=== PATIENT | male | born 1995 | race Caucasian/White ===

== ENCOUNTER 2020-12-04 06:43 | Observation (INO) | payer SELFPAY ==
[2020-12-04 06:55] VITALS: BP 157/92; PULSE 77; RESP 20; TEMP 36.8; O2SAT 97
--- NOTE | 2020-12-04 07:00 | RT.EKG_ITS ---
APPROVED REPORT Exam: Resting ECG Patient Location: E HR:70 bpm ECG Measurements Heart Rate 70 AXIS [place] 113 P 81 QRSd 92 QRS 62 QT 404 T 13 QTc 438 Conclusion Sinus arrhythmia...V-rate 58- 85, variation>10% ST elev, probable normal early repol pattern...ST elevation, age<55 Physician: Rate 70, intervals normal, nonspecific ST elevation, repolarization variant. No evidence of STEMI. No QT prolongation.
--- NOTE | 2020-12-04 07:16 | ED.GENADUL_ITS ---
Discharge Plan Disposition Patient Disposition: [facility] INPATIENT Condition: Improving Discharge Details Chief Complaint: Nausea/Vomit/Diar Clinical Impression: Cannabinoid hyperemesis syndrome Admit Date/Time: 12/04/20 13:06 Admit Provider: Sarthak Herr Attending Provider: Zachary Maya Primary Care Provider: Unknown,Unknown ED Provider: Aba Phelps Discharge Data Discharge Date/Time-TO BE ENTERED AT DEPARTURE: 12/04/20 11:15 Medical Decision Making 25-year-old male with past medical history of cyclic vomiting syndrome presents for the evaluation of vomiting. 5 days ago the patient went to [facility] emergency department for symptoms of vomiting mild abdominal pain. He was diagnosed with cyclic vomiting syndrome after a relatively unremarkable CAT scan and work-up. Is discharged home. He then came back the next day with continued symptoms. He was admitted until about 12 hours ago at which point he came here to [facility] to some family members house that had a particularly hot idania wer if this was a notable relieving factor for him. Unfortunately his symptomatology persisted, and the patient has been unable to stop vomiting. He denies any significant hematemesis, he does admit to occasional loose stool. He denies any fever or chills. Aside for the cramping and nausea he denies any continued severe abdominal pain. He has not smoked marijuana since his previous ED visit in [place] 5 days ago. He does state he has been trying to take oral potassium but this is notably upset his stomach. He denies any chest pain, vision changes, numbness or tingling. He does admit to mild weakness. He does have any fever or chills. No other complaints at this time. No prior abdominal surgeries. The patient also had capscacin during his admission, but states that this only helped minimally. Exam demonstrates mild epigastric tenderness, dry mucous membranes. No other significant abnormalities and definitely no evidence of an acute surgical abdomen. At this time symptoms appear consistent with mild to moderate cyclic vomiting syndrome. The patient has had Zofran at home but this does not help his symptoms. We are pending notes from the [facility] for review. At this time I see no emergent indication for repeat CAT scan. As he has had a notable amount of Zofran I do not think that this is the next best option. We will attempt abortive mechanism with IM sumatriptan hand, in conjunction with Haldol and Benadryl. We will rehydrate, monitor closely and reassess. Patient was signed out to my colleague Dr. Alejo Reynolds for laboratory follow-up, and caitlin ssessment. EKG 7: 04 Rate 70, intervals normal, nonspecific ST elevation, repolarization variant. No evidence of STEMI. No QT prolongation. HPI General Date/Time Provider Initiated Documentation: 12/04/20 06:45 . HPI Narrative: 25-year-old male with past medical history of cyclic vomiting syndrome presents for the evaluation of vomiting. 5 days ago the patient went to [place] emergency department for symptoms of vomiting mild abdominal pain. He was diagnosed with cyclic vomiting syndrome after a relatively unremarkable CAT scan and work-up. Is discharged home. He then came back the next day with continued symptoms. He was admitted until about 12 hours ago at which point he came here to [facility] to some family members house that had a particularly hot shower if this was a notable relieving factor for him. Unfortunately his symptomatology persisted, and the patient has been unable to stop vomiting. He denies any significant hematemesis, he does admit to occasional loose stool. He denies any fever or chills. Aside for the cramping and nausea he denies any continued severe abdominal pain. He has not smoked marijuana since his previous ED visit in [place] 5 days ago. He does state he has been trying to take oral potassium but this is notably upset his stomach. He denies any chest pain, vision changes, numbness or tingling. He does admit to mild weakness. He does have any fever or chills. No other complaints at this time. No prior abdominal surgeries. Related Data Home Medications Medication Instructions Recorded Confirmed ondansetron [Zofran ODT] 4 mg PO Q6H PRN PRN 12/04/20 12/04/20 Allergies Allergy/AdvReac Type Severity Reaction Status Date / Time amoxicillin Allergy Unverified 12/04/20 07:08 Penicillins Allergy Unverified 12/04/20 07:08 General Stated Complaint: Nausea/Vomit/Diar RENEE: 3 Review of Systems All systems reviewed & are unremarkable except as noted in HPI and below [facility] Medical History (Updated 12/04/20 @ 23:58 by Aba Phelps DO) Alcohol use Marijuana dependence Social History Smoking/Tobacco Use Status: Former Tobacco Use Smoking risk assessment performed?: Yes Alcohol Intake: current Alcohol Intake frequency: a few times a week Drug use: Daily Substance use type: marijuana Do you feel safe at home: Yes Do you feel safe in your relationship?: Yes Exam Narrative Exam Narrative: 1.Const: Well-nourished, Well-developed, appearing stated age 2.Eyes: PERRL, no conjunctival injection, and symmetrical lids. 3.ENT: Atraumatic external nose and ears. Notably dry MM. Neck: Symmetric, trachea midline, No thyromegaly. 4.CVS: +S1/S2, No murmurs or gallops. Peripheral pulses 2+ and equal in all extremities. Brisk capillary refill in all extremities. 5.RESP: Unlabored respiratory effort. Clear to auscultation bilaterally. No wheezes rales or rhonchi 6.GI: Soft, nondistended, no guarding or rebound. Mild epigastric tenderness. No pain at McBurney's point, negative Ward sign 7.MSK: Normocephalic/Atraumatic, Extremities w/o deformity or ttp No cyanosis or clubbing, Normal movement of all extremities 8.Skin: Warm, Dry. No rashes or lesions. 9.Neuro: developmental therapist II-XII grossly intact. Sensation grossly intact, no focal neurologic deficits. 10.Psych: (AAO) x3. Appropriate mood and affect Course Vital Signs Vital signs: Vital Signs Temperature 36.8 C 12/04/20 06:55 Pulse 77 12/04/20 06:55 Respiratory Rate 20 12/04/20 06:55 Blood Pressure 157/92 H 12/04/20 06:55 Pulse Oximetry 97 12/04/20 06:55 Temperature 36.8 C 12/04/20 06:55 Temperature Source Skin 12/04/20 06:55 Pulse 77 12/04/20 06:55 Respiratory Rate 20 12/04/20 06:55 Respiratory Effort Non-Labored 12/04/20 07:04 Blood Pressure 157/92 H 12/04/20 06:55 Blood Pressure Position Supine 12/04/20 06:55 Pulse Oximetry 97 12/04/20 06:55 Oxygen Delivery Method Room Air 12/04/20 06:55 Oxygen Flow Rate 0 12/04/20 06:55 Pain Level 5 12/04/20 06:55
[2020-12-04 07:17] LABS: Abs Immature Grans 0.06 10^3/uL (0.0-0.06); Absolute Basophil Count 0.05 10^3/uL (0.0-0.2); Absolute Monocyte Count 1.79 10^3/uL (0.1-0.8); Basophils % 0.3; Eosinophils % 0.2; HCT 51.8 % (40.0-50.0); HGB 17.9 g/dL (13.5-17.5); Immature Grans % 0.3; MCH 30.3 pg (27.0-33.0); MCHC 34.6 % (32.0-36.0); MCV 87.6 fL (80-95); MPV 8.6 fL (8.0-11.0); Neutrophils % 71.2; Nucleated RBC 0 %; Platelet Count 375 10^3/uL (130-400); RBC 5.91 10^6/uL (4.36-5.78); RDW 12.4 % (11.8-14.1); RDW-SD 40.3 fL; WBC 17.85 10^3/uL (4.4-10.8)
[2020-12-04] MEDS: Haloperidol 5 MG/ML VIAL 2 MG IV (07:25)
[2020-12-04] MEDS: Lactated Ringers 1,000 ML 1000 ML IV (07:26)
[2020-12-04] MEDS: SUMAtriptan 6 MG/0.5 ML VIAL SC (07:26)
[2020-12-04] MEDS: diphenhydrAMINE 50 MG/ML VIAL 25 MG IVP (07:26)
[2020-12-04 07:29] LABS: ALT 19 U/L (16-63); AST 8 U/L (15-37); Albumin 4.3 g/dL (3.4-5.0); Alkaline Phosphatase 89 U/L (46-116); Anion Gap 9.7 mmol/L (3-11); BUN 20 mg/dL (7-18); Bilirubin, Total 1.1 mg/dL (0.2-1.0); CO2 27.3 mmol/L (21.0-32.0); CREATININE 1.1 mg/dL (0.70-1.30); Calcium 9.4 mg/dL (8.5-10.1); Chloride 99 mmol/L (98-107); Glucose 142 mg/dL (74-106); Lipase 88 U/L (73-393); Magnesium 2.4 mg/dL (1.8-2.4); Potassium 3.3 mmol/L (3.5-5.1); Sodium 136 mmol/L (136-145); Total Protein 8.1 g/dL (6.4-8.2)
--- NOTE | 2020-12-04 07:35 | DI.CT_ITS ---
EXAM: CT HEAD WO CLINICAL HISTORY: continued vomiting, r/o mass. TECHNIQUE: Imaging Protocol: Axial computed tomography images with coronal and sagittal reformatted images were created and reviewed COMPARISON: No exams were available for comparison FINDINGS: Ventricles and Extra axial spaces: Normal in size and morphology for the patient's age. Hemorrhage: None. Cerebral parenchyma: Normal. Midline shift: None. Brainstem/Cerebellum: Normal. Calvarium: Normal. Visualized Paranasal sinuses/Mastoids: There is a mucous retention cyst or polyp in the left maxillar y sinus. The visualized paranasal sinuses and mastoid air cells are otherwise clear. Soft Tissues: Unremarkable. IMPRESSION: No acute intracranial process. Results of this exam have been verbally communicated with provider. RADIATION DOSE DELIVERED: 664.58mGy.cm Total DLP DATA REPOSITORY: All CT scans at this facility are submitted to the National Radiology Data Registry (NRDR) Dose Index Registry (DIR) with the [employer] (ACR). RADIATION OPTIMIZATION: All CT scans at this facility use at least one of these dose optimization te chniques: automated exposure control; mA and/or kV adjustment per patient size (includes targeted exa ms where dose is matched to clinical indication); or iterative reconstruction.
[2020-12-04] MEDS: POTASSIUM CHLORIDE 20 MEQ/100 ML BAG 50 MEQ IVPB (07:45)
[2020-12-04 08:44] LABS: COVID-19 PCR Negative (Negative); Influenza A PCR Negative (Negative); Influenza B PCR Negative (Negative); RSV PCR Negative (Negative)
[2020-12-04 12:15] LABS: Absolute Eosinophil Count 0.04 10^3/uL (0.0-0.7); Absolute Lymphocyte Count 3.21 10^3/uL (1.2-3.4); Absolute Neutrophil Count 12.71 10^3/uL (1.2-6.7); Diff Comment Diff Reviewed; RBC Morphology Normal
[2020-12-04 13:57] VITALS: BP 135/83; PULSE 66; RESP 20; TEMP 37.3; O2SAT 95
--- NOTE | 2020-12-04 14:45 | W.PM.HP.N ---
Date of service: 12/04/20 Time of Service: 14:45 Assessment and Plan Assessment and plan (1) Marijuana dependence: Status: Acute Assessment and plan: He says his last marijuana use was a week ago. He still has persistent nausea and vomiting. Work-up including a CT scan of the abdomen and pelvis was negative he had a CT scan of the head today it also was negative. Covid screening was negative. He does not have anything more serious that is apparent that is the cause of his persistent nausea and vomiting. Will continue IV fluids and limited p.o. intake and admit for observation overnight. (2) Leukocytosis: Status: Acute Assessment and plan: His white count is mildly elevated. He does not have stigmata of infection in his lungs or abdomen. This does not appear to be an occult infection. Hold on antibiotics for now. (3) Alcohol use: Status: Acute Assessment and plan: He has a history of moderate weekly alcohol use, 3-4 times per week. His last use was over a week ago. I do not think he is in danger of going through withdrawal. (4) Hypokalemia: Status: Acute Assessment and plan: Potassium somewhat low at 3.3. He got potassium replacement in the ER. We will keep him on IV fluids with 20 mEq/L of potassium. Recheck labs again in the a.m. (5) Discharge planning issues: Status: Acute Assessment and plan: Admit to observation status. He is a full code. History of Present Illness History of Present Illness Chief Complaint: Hyperemesis/marijuana abstinence syndrome Narrative: This is a 25-year-old that presented to the emergency room today because of uncontrollable nausea and vomiting. He was discharged from [facility] on 12/02/2020 for admission regarding similar symptoms. At that time he had a CT abdomen and pelvis that was negative. His white count was elevated 18,000 but upon repeat came back to normal. He received antiemetic therapy and IV fluids. He went to his girlfriends grandmother's house today because she has a hot shower which seems to help. Apparently the hot shower did not really help and so he self-referred to the emergency room. In the emergency room white count was elevated at 17.85 thousand potassium low at 3.3. He received IV fluids and potassium replacement but continued to have nausea. He was treated with IV Haldol and IV sumatriptan and which controlled his nausea but he is admitted for observation and further monitoring with IV hydration. Review of Systems Narrative: He states he still has some nausea but has not vomited since coming to the hospital. He denies any significant abdominal pain. He is not having chest pain or shortness of breath. [facility] Medical History (Updated 12/04/20 @ 14:54 by Zachary Maya MD) Alcohol use Marijuana dependence Social History Smoking/Tobacco Use Status: Former Tobacco Use Smoking risk assessment performed?: Yes Alcohol Intake: current Alcohol Intake frequency: a few times a week Drug use: Daily Substance use type: marijuana Do you feel safe at home: Yes Do you feel safe in your relationship?: Yes Meds Home Medications and Allergies Allergies Allergy/AdvReac Type Severity Reaction Status Date / Time amoxicillin Allergy Unverified 12/04/20 07:08 Penicillins Allergy Unverified 12/04/20 07:08 Home Medications Medication Instructions Recorded Confirmed Type ondansetron [Zofran ODT] 4 mg PO Q6H PRN PRN 12/04/20 12/04/20 History Exam Narrative Exam Narrative: On exam skin is notable for faded tattoos on all of his fingers wrists arms shoulders and lower extremities. He did not appear in any distress. His breathing was not at all labored. Lungs were clear to auscultation on the right and left. Heart sounds were regular and strong. No murmur was appreciated. Abdomen was flat soft and no tenderness elicited on palpation to all 4 quadrants. The lower extremity showed no evidence of edema and otherwise appeared well perfused. Neurologically there were no significant deficits. He was somewhat sleepy and somewhat indifferent to the overall exam process. Results Labs Result diagrams: 12/04/20 07:00 12/04/20 07:00 Labs: Laboratory Results - last 24 hr 12/04/20 12/04/20 12/04/20 07:00 07:00 07:40 WBC 17.85 H RBC 5.91 H Hgb 17.9 H Hct 51.8 H MCV 87.6 MCH 30.3 MCHC 34.6 RDW 12.4 Plt Count 375 MPV 8.6 Immature Gran % 0.3 Neutrophils % 71.2 Lymphocytes % 18.0 Monocytes % 10.0 Eosinophils % 0.2 Basophils % 0.3 Nucleated RBC % 0 Absolute Neutrophils 12.71 H Absolute Lymphocytes 3.21 Absolute Monocytes 1.79 H Absolute Eosinophils 0.04 Absolute Basophils 0.05 RBC Morphology Normal Sodium 136 Potassium 3.3 L Chloride 99 Carbon Dioxide 27.3 Anion Gap 9.7 BUN 20 H Creatinine 1.1 Estimated GFR/1.73 m2 >= 60.00 Glucose 142 H Calcium 9.4 Magnesium 2.4 Total Bilirubin 1.1 H AST 8 L ALT 19 Alkaline Phosphatase 89 Total Protein 8.1 Albumin 4.3 Lipase 88 COVID-19 Source Nasopharyx SARS-CoV-2 (PCR) Negative Influenza Type A (PCR) Negative Influenza Type B (PCR) Negative RSV (PCR) Negative Last Vital Signs Temp 37.3 C 12/04/20 13:57 Pulse 66 12/04/20 13:57 Resp 20 12/04/20 13:57 BP 135/83 12/04/20 13:57 Pulse Ox 95 12/04/20 13:57 COVID-19 Screening Have you, or household traveled for leisure in last 14 days?: Yes Had IN PERSON contact w/suspected or confirmed C-19 person: No
[2020-12-04] MEDS: POTASSIUM CHLORIDE/0.9% NACL 1,000 ML 125 MEQ IV (15:12)
[2020-12-04 15:18] VITALS: BP 165/87; PULSE 68; RESP 21; TEMP 37.3; O2SAT 100
[2020-12-04 15:31] VITALS: BP 165/87; PULSE 68; RESP 21; TEMP 37.3; O2SAT 100
[2020-12-04 23:47] VITALS: BP 135/82; PULSE 79; RESP 18; TEMP 37.2; O2SAT 97
[2020-12-05] MEDS: POTASSIUM CHLORIDE/0.9% NACL 1,000 ML 125 MEQ IV (06:12)
[2020-12-05 07:03] LABS: Abs Immature Grans 0.06 10^3/uL (0.0-0.06); Absolute Basophil Count 0.05 10^3/uL (0.0-0.2); Absolute Lymphocyte Count 3.64 10^3/uL (1.2-3.4); Absolute Monocyte Count 1.38 10^3/uL (0.1-0.8); Basophils % 0.3; Eosinophils % 0.4; HCT 46.4 % (40.0-50.0); Immature Grans % 0.4; Lymphocytes % 22.5; MCH 30.4 pg (27.0-33.0); MCHC 34.5 % (32.0-36.0); MCV 88.2 fL (80-95); MPV 8.9 fL (8.0-11.0); Monocytes % 8.5; Neutrophils % 67.9; Nucleated RBC 0 %; Platelet Count 277 10^3/uL (130-400); RBC 5.26 10^6/uL (4.36-5.78); RDW 12.5 % (11.8-14.1); RDW-SD 40.6 fL; WBC 16.18 10^3/uL (4.4-10.8)
[2020-12-05 07:11] LABS: Absolute Eosinophil Count 0.06 10^3/uL (0.0-0.7); Absolute Neutrophil Count 10.99 10^3/uL (1.2-6.7)
[2020-12-05 07:18] LABS: Anion Gap 10.7 mmol/L (3-11); BUN 11 mg/dL (7-18); CO2 25.3 mmol/L (21.0-32.0); CREATININE 0.8 mg/dL (0.70-1.30); Calcium 8.5 mg/dL (8.5-10.1); Chloride 101 mmol/L (98-107); Glucose 100 mg/dL (74-106); Sodium 137 mmol/L (136-145)
[2020-12-05 07:55] VITALS: BP 159/89; PULSE 60; RESP 20; TEMP 36.9; O2SAT 98
[2020-12-05] MEDS: Mylanta Suspension 30 ML CUP PO (09:36)
--- NOTE | 2020-12-05 10:09 | PDOC.CMIN ---
- If Service Date Differs Date of service: 12/05/20 Time of Service: 10:10 Care Management Initial Assess REASON FOR HOSPITALIZATION:: Hyperemesis PAST MEDICAL HISTORY/PAST SURGICAL HISTORY:: Alcohol use, marijuana dependence PREVIOUS FUNCTIONAL STATUS/SOCIAL/FAMILY SUPPORTS:: Alcohol use. Marijuana dependence CURRENT FUNCTIONAL STATUS:: Adán is preparing for discharge. He shares no concerns at this time. INSURANCE COVERAGE / FINANCIAL ISSUES:: No insurance currently, resident of [place]. CURRENT HOME/COMMUNITY SERVICES/EQUIPMENT:: None, currently. PRIMARY CARE PHYSICIAN:: None local. PATIENT/FAMILY EDUCATION NEEDS:: Review discharge instructions, discuss Ask Me [employer]. ANTICIPATED BARRIERS TO DISCHARGE:: None identified at this time. TRANSPORTATION:: Via private vehicle with his significant other. PLAN:: Adán will discharge to home when ready per MD. He will transport via private vehicle with his significant other.
--- NOTE | 2020-12-05 10:31 | DSE_ITS ---
Date of service: 12/05/20 Time of Service: 10:31 DS: Diagnosis Discharge Diagnosis (1) Marijuana dependence: Status: Acute (2) Leukocytosis: Status: Acute (3) Alcohol use: Status: Acute (4) Hypokalemia: Status: Acute Discharge Plan Disposition Patient Disposition: HOME Condition: Improving Discharge Details Reason For Visit: HYPEREMESIS Admit Date/Time: 12/04/20 13:06 Admit Provider: Sarthak Herr Attending Provider: Zachary Maya Primary Care Provider: None,None Hospital Course Hospital Course: THis is a 25-year-old male with past medical history of cyclic vomiting syndrome presents to the ED for the evaluation of vomiting. 5 days ago he was evaluated at the [place] emergency department for symptoms of vomiting mild abdominal pain. He was diagnosed with cyclic vomiting syndrome after a relatively unremarkable CAT scan and work-up. His labs repeated and he received IV antiemetics and fluids with improvement in his symptoms. He has had improvement with hot showers. he is now tolerating PO fluids and has remained hemodynamically stable. He is safe and ready for discharge to home. He states he has antiemetics at home and does not need a new prescription. He was advised to avoid marijuana which he acknowledges is contributing to his symptoms. discharge discussed with Dr Herr Home Meds and New Rx's Prescriptions: Continued ondansetron 4 mg Tablet,Disintegrating 4 mg PO Q6H PRN PRNRF: 0 Discharge Instructions Instructions: Acute Nausea and Vomiting (DC) Additional Instructions: avoid marijuana clear liquids, advance as tolerated can use omeprazole 20 mg daily for 3 weeks add tums or maalox as directed for epigastric pain Stand Alone Forms: Nursing Discharge Form Referrals: Alexia Ball NP [NURSE PRACTITIONER] - 12/17/20 10:00 am Activity:: Activity as Tolerated Equipment/Supplies:: No Equipment Needed Diet:: As Tolerated Discharge Orders Discharge Orders: Discharge Order (Routine); Ordered 12/05/20 Ordered By: Brii Otero DS: Summary Time Spent with Patient providing and/or coordinating discharge services: Less than 30 minutes Status at Discharge Functional status at discharge: independent ambulation Overall status at discharge: patient is progressing back to baseline Mental Status: mental status grossly normal Speech and Movement: speech and movement normal Mood: congruent mood Affect: normal affect Exam Const General: cooperative, comfortable, no acute distress and frail appearing Nutritional Appearance: thin Orientation: alert, awake and oriented x3 HENMT Head: normal to inspection, normocephalic and atraumatic Resp Effort & Inspection: normal respiratory effort (even and unlabored) Cardio Jugular venous pressure: other Other: pink warm dry and well perfused GI Inspection: other (flat) Skin General skin exam: no rashes or lesions noted Neuro General: patient alert, patient awake, patient oriented x3 and moves all extremities Extrem General: normal to inspection and full ROM Psych Mental Status: mental status grossly normal Speech and Movement: speech and movement normal Mood: congruent mood Affect: normal affect Attitude: cooperative Thought Process: normal Thought Content: normal DS: Data Vitals/I&O Vitals and I&O: Vital Signs Temperature 36.9 C 12/05/20 07:55 Temperature Source Tympanic 12/05/20 07:55 Pulse 60 12/05/20 07:55 Pulse Rhythm Regular 12/05/20 09:32 Respiratory Rate 20 12/05/20 07:55 Respiratory Effort Non-Labored 12/05/20 09:32 Respiratory Depth Normal 12/05/20 09:32 Respiratory Pattern Normal 12/05/20 09:32 Blood Pressure 159/89 H 12/05/20 07:55 Blood Pressure Position Supine 12/04/20 06:55 Pulse Oximetry 98 12/05/20 07:55 Oxygen Delivery Method Room Air 12/05/20 07:55 Oxygen Flow Rate 0 12/05/20 07:55 Pain Level 0 12/05/20 07:55 Comment 12/04/20 15:18 Intake & Output 12/04/20 12/04/20 12/05/20 11:59 23:59 11:59 Intake Total 1170.5 / 1170.5 101.0 / 101.0 Output Total 600 / 600 1400 / 1400 Balance 570.5 / 570.5 -1299.0 / -1299.0 Weight 56.2 kg Intake: IV 1050.5 / 1050.5 101.0 / 101.0 Oral 120 / 120 Output: Urine 400 / 400 900 / 900 Emesis 200 / 200 500 / 500 Other: Urine Color Yellow Yellow Urine Appearance Clear Clear Urine Odor Normal Comment reports voiding in shower Stool Size Small Stool Characteristics Liquid Emesis Description Retching Retching Clear/Water Projectile Clear/Water Voiding Methods Toilet Urinal Data Completed and Pending Labs on day of discharge: Labs from last 24 hours 12/05/20 12/05/20 12/04/20 06:30 06:30 07:40 WBC 16.18 H RBC 5.26 Hgb 16.0 Hct 46.4 MCV 88.2 MCH 30.4 MCHC 34.5 RDW 12.5 Plt Count 277 MPV 8.9 Immature Gran % 0.4 Neutrophils % 67.9 Lymphocytes % 22.5 Monocytes % 8.5 Eosinophils % 0.4 Basophils % 0.3 Nucleated RBC % 0 Absolute Neutrophils 10.99 H Absolute Lymphocytes 3.64 H Absolute Monocytes 1.38 H Absolute Eosinophils 0.06 Absolute Basophils 0.05 RBC Morphology Sodium 137 Potassium 4.0 D Chloride 101 Carbon Dioxide 25.3 Anion Gap 10.7 BUN 11 D Creatinine 0.8 Estimated GFR/1.73 m2 >= 60.00 Glucose 100 Calcium 8.5 SARS-CoV-2 (PCR) Negative Influenza Type A (PCR) Negative Influenza Type B (PCR) Negative RSV (PCR) Negative 12/04/20 07:00 WBC 17.85 H RBC 5.91 H Hgb 17.9 H Hct 51.8 H MCV 87.6 MCH 30.3 MCHC 34.6 RDW 12.4 Plt Count 375 MPV 8.6 Immature Gran % 0.3 Neutrophils % 71.2 Lymphocytes % 18.0 Monocytes % 10.0 Eosinophils % 0.2 Basophils % 0.3 Nucleated RBC % 0 Absolute Neutrophils 12.71 H Absolute Lymphocytes 3.21 Absolute Monocytes 1.79 H Absolute Eosinophils 0.04 Absolute Basophils 0.05 RBC Morphology Normal Sodium Potassium Chloride Carbon Dioxide Anion Gap BUN Creatinine Estimated GFR/1.73 m2 Glucose Calcium SARS-CoV-2 (PCR) Influenza Type A (PCR) Influenza Type B (PCR) RSV (PCR) [facility] Medical History (Updated 12/04/20 @ 23:58 by Aba Phelps DO) Alcohol use Marijuana dependence Social History Smoking/Tobacco Use Status: Former Tobacco Use Smoking risk assessment performed?: Yes Alcohol Intake: current Alcohol Intake frequency: a few times a week Drug use: Daily Substance use type: marijuana Do you feel safe at home: Yes Do you feel safe in your relationship?: Yes
== END 2020-12-05 12:02 | disposition home or self-care (01) ==
LOC: ER 11:38 → MS 14:17
PROVIDERS: Admitting Provider Internal Medicine; Emergency Provider Student in an Organized Health Care Education/Training Program; Visit Provider Family Medicine
DX: R11.2 Nausea with vomiting, unspecified (principal); F12.20 Cannabis dependence, uncomplicated; D72.829 Elevated white blood cell count, unspecified; E87.6 Hypokalemia; Z72.89 Other problems related to lifestyle
CPT/HCPCS: 36415; 80048; 80053; 83690; 87637; 93005; 96361; 96365; 96366; 96372; 96375; 99217; 99219; 99285; 70450; 83735; 85025; 93010; G0378; J1200; J1630; J3480

== ENCOUNTER 2022-02-24 21:48 | Emergency (ER) | payer MEDICAID, SELFPAY ==
[2022-02-24 22:01] VITALS: BP 146/88; PULSE 88; RESP 20; TEMP 36.6; O2SAT 98
--- NOTE | 2022-02-24 22:21 | ED.GENADUL_ITS ---
Discharge Plan Disposition Patient Disposition: OTHER Condition: Stable Discharge Details Chief Complaint: Nausea/Vomit/Diar Clinical Impression: Nausea Primary Care Provider: None,None ED Provider: Mark Avelar Home Meds and New Rx's Prescriptions: No Action ondansetron 4 mg Tablet,Disintegrating 4 mg PO Q6H PRN PRN Discharge Instructions Additional Instructions: Patient eloped Medical Decision Making 26-year-old male history of cannabinoid hyperemesis, alcohol use, endorses prior alcohol poisoning, presents with nausea and vomiting since Thursday, believes he drank too much over the weekend, patient is hemodynamically stable no active vomiting, abdomen soft nontender nondistended has moist mucous membranes, no tachycardia no hypotension no fever, patient has no abdominal surgical history. Patient asking multiple times when he has been to get a bed also asking staff that he can take a shower, endorse multiple times that if he has to wait he is going to leave. I counseled patient that we are here to help him are working as best we can to provide appropriate space for his treatment. Consider recurrent hemorrhoid hyperemesis versus hangover versus gastritis versus enteritis, unlikely appendicitis cholecystitis UTI malignant or obstructive process given history and physical, patient has no clinical signs of dehydration at this time. Have ordered basic labs, fluids, Zofran. 23: 02 patient eloped. HPI General Date/Time Provider Initiated Documentation: 02/24/22 21:54 . HPI Narrative: 26-year-old male presents with nausea and vomiting since Thursday endorses drinking over the weekend has only been able to keep ice and water down, denies diarrhea fevers chills chest pain or shortness of breath. Has a history of cannabinoid hyperemesis syndrome and alcohol use. Believes he may have alcohol poisoning as this is happened to him in the past after drinking heavily. Denies history of abdominal surgeries. Related Data Home Medications Medication Instructions Recorded Confirmed ondansetron 4 mg disintegrating 4 mg PO Q6H PRN PRN 12/04/20 12/04/20 tablet Allergies Allergy/AdvReac Type Severity Reaction Status Date / Time amoxicillin Allergy Unverified 02/24/22 22:02 Penicillins Allergy Unverified 02/24/22 22:02 General Stated Complaint: Nausea/Vomit/Diar RENEE: 3 Review of Systems Narrative: R nausea, vomiting of Systems Constitutional: negative Eyes: negative ENT: negative Cardiovascular: negative Respiratory: negative Gastrointestinal: nausea, vomiting Musculoskeletal: negative Skin: negative Neurologic: negative Psych: negative PFSH All Active Problems (Updated 02/24/22 @ 23:03 by Mark Avelar MD) Cannabinoid hyperemesis syndrome (Acute) Nausea (Acute) Hypokalemia (Acute) Discharge planning issues (Acute) Leukocytosis (Acute) Alcohol use (Acute) Marijuana dependence (Acute) Social History Smoking/Tobacco Use Status: Former Tobacco Use Smoking risk assessment performed?: Yes Alcohol Intake: current Alcohol Intake frequency: a few times a week Substance use type: does not use Details: Had about 12 to 15 12oz beers on Thursday night. Reports not currently using marijuana. Do you feel safe at home: Yes Do you feel safe in your relationship?: Yes Exam Narrative Exam Narrative: Physical Examination General: alert, awake, cooperative, resting comfortably, no acute distress HEENT: normocephalic, atraumatic; PERRL, EOM intact, conjunctiva normal; no nasal discharge; moist mucous membranes, oral and pharyngeal mucosa normal, tolerating secretions Neck: supple, trachea midline; full ROM Chest: normal to inspection Respiratory: normal respiratory effort, speaking in full sentences, clear to auscultation, no wheezing, rales or rhonchi Cardiac: regular rate, regular rhythm, S1S2 intact, no murmurs rubs or gallops GI: abdomen soft, non-tender, non-distended; no palpable mass or hepatosplenomegaly Skin: no lesions, rashes or trauma appreciated Neuro: AAOx3, normal speech, moving all extremities Psych: Appropriate mood and affect Course Vital Signs Vital signs: Vital Signs Temperature 36.6 C 02/24/22 22:01 Pulse 88 02/24/22 22:01 Respiratory Rate 20 02/24/22 22:01 Blood Pressure 146/88 H 02/24/22 22:01 Pulse Oximetry 98 02/24/22 22:01 Temperature 36.6 C 02/24/22 22:01 Temperature Source Skin 02/24/22 22:01 Pulse 88 02/24/22 22:01 Respiratory Rate 20 02/24/22 22:01 Respiratory Effort Non-Labored 02/24/22 22:03 Blood Pressure 146/88 H 02/24/22 22:01 Blood Pressure Position Sitting 02/24/22 22:01 Pulse Oximetry 98 02/24/22 22:01 Oxygen Delivery Method Room Air 02/24/22 22:01 Oxygen Flow Rate 0 02/24/22 22:01 Pain Level 5 02/24/22 22:01 PAWSS Have you Been Recently Intoxicated or Drunk Within the Last 30 days?: Yes Have you Ever Experienced Previous Episodes of Alcohol Withdrawal?: No Have you ever Experienced Withdrawal Seizures?: No Have you ever Experienced Delirium Tremens(DT)s?: No Have you ever undergone Alcohol Rehabilitation Treatment (i.e, inpt ot outpatient treatment programs)?: No Have you ever Experienced Blackouts?: No Have you ever Combined Alcohol with other Downers within the last 90 days?: No Have you ever Combined Alcohol with any other Substance of Abuse during the last 90 days?: No Positive Blood Alcohol level on Presentation? [PCS.BAL]: No Evidence of Increased Autonomic Activity (i.e. HR>120, tremor, sweating, agitation, nausea)?: No Result: 1
== END 2022-02-24 22:59 | disposition other institution (70) ==
PROVIDERS: Emergency Provider Emergency Medicine
DX: R11.2 Nausea with vomiting, unspecified (principal); Z53.29 Procedure and treatment not carried out because of patient's decision for other reasons
CPT/HCPCS: 80053; 99281; 85025

== ENCOUNTER 2022-02-25 08:39 | Emergency (ER) | payer MEDICAID, SELFPAY ==
[2022-02-25 08:43] VITALS: BP 159/88; PULSE 104; RESP 16; TEMP 36.7; O2SAT 96
--- NOTE | 2022-02-25 09:12 | W.ED.GENAD ---
Discharge Plan Disposition Patient Disposition: HOME Condition: Improving Discharge Details Clinical Impression: Acute dehydration Primary Care Provider: None,None ED Provider: Mario Newell Home Meds and New Rx's Prescriptions: No Action No Known Home Meds Medical Decision Making 26-year-old male presents from home with nausea, vomiting, dehydration since going camping in which He arrives to the ER slightly tachycardic and dehydrated in appearance. Differential diagnosis includes pancreatitis, dehydration, acute gastritis. He drank a 12 pack and had little to no water. He is not had syncope. No chest pain. Patient IV access established, given parenteral fluids and antiemetic as well as PPI. His labs reveal elevated white count of 21, with a hematocrit greater than 50 He was dehydrated with a BUN of 30, his electrolytes are unremarkable. Troponin is negative. LFTs and lipase unremarkable. CBC was repeated and showed significant improvement with hematocrit of 44 likely near the patient's bed line. Patient improved with parenteral fluids and felt significantly better. Most consistent with his history of alcohol use with minimal water intake. He is young and healthy and do not feel he requires mandatory repeat labs but discussed this with him. We will arrange for him to establish primary care in the community. HPI General Mode of arrival: ambulatory. Date/Time Provider Initiated Documentation: 02/25/22 08:41. Limitations to Documentation: no limitations. Information obtained by: patient. History of Present Illness 26 year old M presents to the emergency department with the chief complaint of Nausea, vomiting, feels dehydrated after weekend of camping and drinking, described as moderate, Quality is described as constant, and is localized to the abdomen. Patient reports no radiation. Patient started experiencing this hour(s) and it has been intermittent. No relieving factors improve symptom(s), No exacerbating factors reported . Patient notes loss of appetite and nausea/vomiting; denies fever/chills, headaches, shortness of breath and syncope. Patient did receive the following treatments prior to arrival, none Related Data Home Medications Medication Instructions Recorded Confirmed Unknown [No Known Home Meds] 02/25/22 02/25/22 Allergies Allergy/AdvReac Type Severity Reaction Status Date / Time amoxicillin Allergy Unverified 02/25/22 09:13 Penicillins Allergy Unverified 02/25/22 09:13 General Stated Complaint: Nausea/Vomit/Diar RENEE: 3 Review of Systems Narrative: 6 systems reviewed and otherwise negative. No known sick contacts [facility] All Active Problems (Updated 02/25/22 @ 10:49 by Mario Newell MD) Cannabinoid hyperemesis syndrome (Acute) Nausea (Acute) Acute dehydration (Acute) Hypokalemia (Acute) Discharge planning issues (Acute) Leukocytosis (Acute) Alcohol use (Acute) Marijuana dependence (Acute) Social History Smoking/Tobacco Use Status: Former Tobacco Use Smoking risk assessment performed?: Yes Alcohol Intake: current Alcohol Intake frequency: 0-2 drinks per day Alcohol type: beer Substance use type: does not use Details: Had about 12 to 15 12oz beers on Thursday night. Reports not currently using marijuana. Do you feel safe at home: Yes Do you feel safe in your relationship?: Yes Exam Narrative Exam Narrative: GEN: awake, alert, oriented 3. Pleasant, well groomed, interactive. HEAD: Normocephalic, atraumatic ENT: Mucous membranes dry, oropharynx unremarkable, External ear exam unremarkable EYES: PERRL, EOMI NECK: Full ROM, no KAYLEE, no menigismus CHEST/RESP: Nontender, clear to auscultation bilateral, no wheeze/rhonchi/rales CARDIOVASCULAR: Regular and tachycardic, no murmur, rub naren. 2+ Rad pulse bilateral ABDOMEN: Soft, mild diffuse nonfocal tenderness without rebound or guarding no mass. +Bowel sounds EXT: Full ROM, no edema, no rash Neuro: Grossly normal neurologic exam, conversant, interactive. Psych: Speech fluent, thoughts congruent, affect normal Course Vital Signs Vital signs: Vital Signs Temperature 36.7 C 02/25/22 08:43 Pulse 104 H 02/25/22 08:43 Respiratory Rate 16 02/25/22 08:43 Blood Pressure 159/88 H 02/25/22 08:43 Pulse Oximetry 96 02/25/22 08:43 Temperature 36.7 C 02/25/22 08:43 Temperature Source Temporal Artery Scan 02/25/22 08:43 Pulse 104 H 02/25/22 08:43 Respiratory Rate 16 02/25/22 08:43 Blood Pressure 159/88 H 02/25/22 08:43 Blood Pressure Position Sitting 02/25/22 08:43 Pulse Oximetry 96 02/25/22 08:43 Oxygen Delivery Method Room Air 02/25/22 08:43 Oxygen Flow Rate 0 02/25/22 08:43 Pain Level 6 02/25/22 08:43
[2022-02-25] MEDS: Ondansetron 4 MG/2 ML VIAL IVP (09:23)
[2022-02-25] MEDS: Normal Saline 1,000 ML 1000 ML IV ×2 (09:23→10:24)
[2022-02-25] MEDS: Pantoprazole 40 MG VIAL IVP (09:23)
[2022-02-25] MEDS: Normal Saline Flush 10 ML SYR IVP (09:23)
[2022-02-25 09:29] LABS: HCT 55.1 % (40.0-50.0); MCH 31.2 pg (27.0-33.0); MCHC 34.7 % (32.0-36.0); MCV 90 fL (80-95); MPV 9.1 fL (8.0-11.0); Platelet Count 369 10^3/uL (130-400); RBC 6.13 10^6/uL (4.36-5.78); RDW-SD 42.9 fL; WBC 21.14 10^3/uL (4.4-10.8)
[2022-02-25 09:35] LABS: HGB 19.1 g/dL (13.5-17.5)
[2022-02-25 09:41] LABS: ALT 23 U/L (16-63); AST 16 U/L (15-37); Albumin 4.7 g/dL (3.4-5.0); Alkaline Phosphatase 92 U/L (46-116); Anion Gap 9.4 mmol/L (3-11); BUN 30 mg/dL (7-18); Bilirubin, Total 0.8 mg/dL (0.2-1.0); CO2 33.6 mmol/L (21.0-32.0); CREATININE 1.2 mg/dL (0.70-1.30); Calcium 9.8 mg/dL (8.5-10.1); Chloride 95 mmol/L (98-107); Glucose 135 mg/dL (74-106); Lipase 68 U/L (73-393); Sodium 138 mmol/L (136-145); Total Protein 8.8 g/dL (6.4-8.2); Troponin I < 50 ng/L (<or=60)
--- NOTE | 2022-02-25 10:52 | NUR.NOTE ---
Nursing Note: Referral given to Care Management needs PCP; establish care, routine follow up. Aimee Pacheco
[2022-02-25 11:32] LABS: HCT 44.3 % (40.0-50.0); HGB 14.9 g/dL (13.5-17.5); MCH 31.2 pg (27.0-33.0); MCHC 33.6 % (32.0-36.0); MCV 93 fL (80-95); Platelet Count 282 10^3/uL (130-400); RBC 4.77 10^6/uL (4.36-5.78); RDW 12.9 % (11.8-14.1); WBC 17.28 10^3/uL (4.4-10.8)
[2022-02-25 12:07] VITALS: BP 131/80; PULSE 86; RESP 16; TEMP 37.1; O2SAT 97
== END 2022-02-25 12:21 | disposition home or self-care (01) ==
PROVIDERS: Emergency Provider Emergency Medicine
DX: E86.0 Dehydration (principal); R11.2 Nausea with vomiting, unspecified
CPT/HCPCS: 36415; 80053; 83690; 85027; 96361; 96374; 96375; 99284; 84484; 99283; J2405

== ENCOUNTER 2022-02-26 14:25 | Emergency (ER) | payer MEDICAID, SELFPAY ==
[2022-02-26] VITALS (24 sets, daily range): BP systolic 123–171; BP diastolic 57–101; PULSE 59–66; RESP 16; TEMP 36.6; O2SAT 94–100
--- NOTE | 2022-02-26 14:42 | DI.CT_ITS ---
Exam(s) CT ABDOMEN PELVIS WO EXAM: CT ABDOMEN PELVIS WO CLINICAL HISTORY: Abd Pain TECHNIQUE: COMPARISON: No exams were available for comparison FINDINGS: CT examination of the abdomen and pelvis was performed without contrast administration. Images obtained through the lung bases show areas of airspace opacity in the left lower lobe, possibl e pneumonia.. The liver appears normal with no evidence of a focal mass. Spleen is unremarkable in appearance.. Gallbladder and bile ducts are unremarkable. Pancreas is unremarkable in appearance. Adrenals appear normal bilaterally. Kidneys appear normal with no evidence of renal mass, hydronephrosis, or nephrolithiasis. Unremarkab le bladder. There is no evidence of abdominal or pelvic adenopathy. Abdominal aorta is of normal diameter and no abnormality is seen involving major visceral branches.. Appendix is normal. No evidence diverticulitis or bowel obstruction. No significant abdominal wall hernia seen. Impression: The appearance of the visualized portions of the left lower pulmonary lobe raises the possibility of pneumonitis. No significant intra abdominal pathology seen. RADIATION DOSE DELIVERED: 497.67mGy.cm Total DLP 497.67mGy.cm Total DLP !Error CTDIvol DATA REPOSITORY: All CT scans at this facility are submitted to the National Radiology Data Registry (NRDR) Dose Index Registry (DIR) with the [employer] (A[employer]). RADIATION OPTIMIZATION: All CT scans at this facility use at least one of these dose optimization te chniques: automated exposure control; mA and/or kV adjustment per patient size (includes targeted exa ms where dose is matched to clinical indication); or iterative reconstruction.
[2022-02-26] MEDS: Normal Saline 1,000 ML 1000 ML IV (15:02)
[2022-02-26 15:06] LABS: Abs Immature Grans 0.05 10^3/uL (0.0-0.06); Absolute Basophil Count 0.03 10^3/uL (0.0-0.2); Absolute Lymphocyte Count 1.51 10^3/uL (1.2-3.4); Absolute Monocyte Count 0.56 10^3/uL (0.1-0.8); Absolute Neutrophil Count 9.06 10^3/uL (1.2-6.7); Basophils % 0.3; HGB 16.8 g/dL (13.5-17.5); Immature Grans % 0.4; Lymphocytes % 13.5; MCH 31.2 pg (27.0-33.0); MCHC 34.3 % (32.0-36.0); MCV 91 fL (80-95); MPV 8.8 fL (8.0-11.0); Neutrophils % 80.8; Platelet Count 269 10^3/uL (130-400); RBC 5.39 10^6/uL (4.36-5.78); RDW 12.2 % (11.8-14.1); RDW-SD 40.9 fL; WBC 11.21 10^3/uL (4.4-10.8)
--- NOTE | 2022-02-26 15:17 | ED.GENADUL_ITS ---
Discharge Plan Disposition Patient Disposition: HOME Condition: Improving Discharge Details Clinical Impression: Nausea & vomiting, Pneumonia Primary Care Provider: None,None ED Provider: Lino Bowden Home Meds and New Rx's Prescriptions: New azithromycin 250 mg tablet 250 mg PO DAILY 4 Days Qty: 4 0RF Rx Instructions: start on day 2 of therapy promethazine 25 mg tablet 25 mg PO TID PRN (Reason: nausea and vomiting) Qty: 10 0RF Discharge Instructions Instructions: Acute Nausea and Vomiting (ED), Pneumonia (ED) Additional Instructions: Please start your antibiotic tomorrow as your first dose was given in the emergency department. If you have any new or significant worsening of symptoms please return otherwise we will place you on a follow-up list with primary care provider for establishment of a new provider and for reassessment preferably next week. Stand Alone Forms: Work Release Referrals: Primary Care Provider [Outside] - 1 week Medical Decision Making <Zojoseph Snyder - Last Filed: 02/26/22 15:36> 26-year-old male presents to the ER with chief complaint of nausea vomiting abdominal pain since second visit please see HPI. CBC, CMP ordered urinalysis urine drug screen and ethyl alcohol. CT abdomen pelvis without contrast. CBC appears improved from yesterday's labs, BUN is 26 which is also improved from yesterday. Care is to be handed off to oncoming provider Dharmesh Bowden pending CT result. I did order Zofran tablets to go for patient. Medical Records Medical records reviewed: Yes I reviewed the patient's medical records. Lab Data Lab results reviewed: Yes I reviewed the patient's lab results. Labs: Laboratory Tests Range/Units 02/26/22 02/26/22 15:00 15:00 WBC (4.4-10.8) 10^3/uL 11.21 H RBC (4.36-5.78) 10^6/uL 5.39 Hgb (13.5-17.5) g/dL 16.8 Hct (40.0-50.0) % 49.0 MCV (80-95) fL 91 MCH (27.0-33.0) pg 31.2 MCHC (32.0-36.0) % 34.3 D RDW (11.8-14.1) % 12.2 Plt Count (130-400) 10^3/uL 269 MPV (8.0-11.0) fL 8.8 Immature Gran % 0.4 Neutrophils % 80.8 Lymphocytes % 13.5 Monocytes % 5.0 Eosinophils % 0.0 Basophils % 0.3 Nucleated RBC % (0.0-0.3) % 0.0 Absolute Neutrophils (1.2-6.7) 10^3/uL 9.06 H Absolute Lymphocytes (1.2-3.4) 10^3/uL 1.51 Absolute Monocytes (0.1-0.8) 10^3/uL 0.56 Absolute Eosinophils (0.0-0.7) 10^3/uL 0.00 Absolute Basophils (0.0-0.2) 10^3/uL 0.03 Sodium (136-145) mmol/L 138 Potassium (3.5-5.1) mmol/L 3.7 Chloride (98-107) mmol/L 101 Carbon Dioxide (21.0-32.0) mmol/L 28.2 Anion Gap (3-11) mmol/L 8.8 BUN (7-18) mg/dL 26 H Creatinine (0.70-1.30) mg/dL 1.0 Estimated GFR/1.73 m2 (mL/min/1.73m2) >= 60.00 Glucose (74-106) mg/dL 111 H Calcium (8.5-10.1) mg/dL 8.9 Magnesium (1.8-2.4) mg/dL 2.4 Total Bilirubin (0.2-1.0) mg/dL 0.9 AST (15-37) U/L 20 ALT (16-63) U/L 21 Alkaline Phosphatase (46-116) U/L 83 Total Protein (6.4-8.2) g/dL 7.9 Albumin (3.4-5.0) g/dL 4.3 HPI <Zo Snyder - Last Filed: 02/26/22 15:36> General Mode of arrival: ambulatory . Date/Time Provider Initiated Documentation: 02/26/22 14:27 . Limitations to Documentation: no limitations . Information obtained by: patient, RN notes reviewed and old records reviewed . HPI Narrative: 26-year-old male presents to the ER for the second day in a row with similar complaints of nausea vomiting dehydration and abdominal pain. 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 Patient denies any drug or alcohol use to me today. However upon medical record review it is noted that he does smoke marijuana and occasional alcohol use. He has moist mucous membranes upon initial presentation. Vital signs are stable. He is complaining of some lower abdominal pain. Past medical history includes cannabinoid hyperemesis syndrome, nausea, acute dehydration, hypokalemia, leukocytosis, alcohol use and marijuana dependence. Related Data Home Medications Medication Instructions Recorded Confirmed azithromycin 250 mg tablet 250 mg PO DAILY 4 days #4 tabs 02/26/22 promethazine 25 mg tablet 25 mg PO TID PRN nausea and 02/26/22 vomiting #10 tabs Previous Rx's Medication Instructions Recorded azithromycin 250 mg tablet 250 mg PO DAILY 4 days #4 tabs 02/26/22 promethazine 25 mg tablet 25 mg PO TID PRN nausea and 02/26/22 vomiting #10 tabs Allergies Allergy/AdvReac Type Severity Reaction Status Date / Time amoxicillin Allergy Unverified 02/26/22 14:32 Penicillins Allergy Unverified 02/26/22 14:32 General Stated Complaint: Nausea/Vomit/Diar RENEE: 3 Review of Systems <oZ Snyder - Last Filed: 02/26/22 15:36> All systems reviewed & are unremarkable except as noted in HPI and below Constitutional Constitutional: Reports as per HPI, Reports lethargy, Reports malaise and Reports poor appetite Gastrointestinal Gastrointestinal: Reports abdominal pain, Reports constipation, Reports nausea and Reports vomiting [facility] <Zo Snyder - Last Filed: 02/26/22 15:36> All Active Problems (Updated 02/26/22 @ 18:22 by Lino Bowden NP) Cannabinoid hyperemesis syndrome (Acute) Nausea (Acute) Acute dehydration (Acute) Nausea & vomiting (Acute) Pneumonia (Acute) Hypokalemia (Acute) Discharge planning issues (Acute) Leukocytosis (Acute) Alcohol use (Acute) Marijuana dependence (Acute) Social History Smoking/Tobacco Use Status: Former Tobacco Use Smoking risk assessment performed?: Yes Alcohol Intake: current Alcohol Intake frequency: 0-2 drinks per day Alcohol type: beer Substance use type: does not use Details: Had about 12 to 15 12oz beers on Thursday night. Reports not currently using marijuana. Do you feel safe at home: Yes Do you feel safe in your relationship?: Yes Exam <Zo Snyder - [facility] Filed: 02/26/22 15:36> Narrative Exam Narrative: Constitutional: Alert and oriented x3. Appears stated age. Normal body habitus. Head: Normocephalic, no trauma. Eyes: Pupils PERRL, Red reflex noted, EOM's intact. Eyelids symmetrical without lesions, discharge, or swelling. ENT: Bilateral TM's WNL, External ear normal to inspection, no mastoid TTP, swelling, or erythema, Nasal turbinates WNL, no nasal discharge. Normal dentition, Posterior pharynx WNL, no exudate. Moist mucous membranes. Chest: RRR, Normal S1, S2, distal pulses intact. Resp: Lungs clear to auscultation bilaterally, no wheezes, rales, or rhonchi. Abdomen: Soft, non-distended, Normoactive bowel sounds all 4 quads. Musculoskeletal: Normal gait, 5/5 strength to all four extremities. Skin: Capillary refill less than 2 sec. patient does have a small sunburn noted to his chest and face. Neurologic: Cranial nerves II-XII intact. Alert and oriented x 3. Motor: No deficits noted. Sensory: Intact bilaterally all 4 extremities. Reflexes: DTR's intact bilaterally.. Hematologic/Lymphatic: No ecchymosis, no lymphadenopathy. Course <Zo Snyder - Last Filed: 02/26/22 15:36> Vital Signs Vital signs: Vital Signs Temperature 36.6 C 02/26/22 14:29 Pulse 64 02/26/22 14:29 Respiratory Rate 16 02/26/22 14:29 Blood Pressure 171/82 H 02/26/22 14:29 Pulse Oximetry 100 02/26/22 14:29 Temperature 36.6 C 02/26/22 14:29 Temperature Source Skin 02/26/22 14:29 Pulse 64 02/26/22 14:29 Respiratory Rate 16 02/26/22 14:29 Respiratory Effort 02/26/22 14:33 Blood Pressure 171/82 H 02/26/22 14:29 Pulse Oximetry 100 02/26/22 14:29 Oxygen Delivery Method Room Air 02/26/22 14:29 Oxygen Flow Rate 0 02/26/22 14:29 Pain Level 6 02/26/22 14:29 Lab/Test Results Lab/Test Results: Laboratory Tests Range/Units 02/26/22 15:00 WBC (4.4-10.8) 10^3/uL 11.21 H RBC (4.36-5.78) 10^6/uL 5.39 Hgb (13.5-17.5) g/dL 16.8 Hct (40.0-50.0) % 49.0 MCV (80-95) fL 91 MCH (27.0-33.0) pg 31.2 MCHC (32.0-36.0) % 34.3 D RDW (11.8-14.1) % 12.2 Plt Count (130-400) 10^3/uL 269 MPV (8.0-11.0) fL 8.8 Immature Gran % 0.4 Neutrophils % 80.8 Lymphocytes % 13.5 Monocytes % 5.0 Eosinophils % 0.0 Basophils % 0.3 Nucleated RBC % (0.0-0.3) % 0.0 Absolute Neutrophils (1.2-6.7) 10^3/uL 9.06 H Absolute Lymphocytes (1.2-3.4) 10^3/uL 1.51 Absolute Monocytes (0.1-0.8) 10^3/uL 0.56 Absolute Eosinophils (0.0-0.7) 10^3/uL 0.00 Absolute Basophils (0.0-0.2) 10^3/uL 0.03 Sign Out <Zo Snyder - Last Filed: 02/26/22 15:36> Sign Out Data: Sign Out Comment: Patient seen here for the second time in 2 days nausea vomiting constipation dehydration. He does have a history of cannabinoid hyperemesis. Pending CT result complaining of some lower abdominal pain. Labs are improved particularly white blood cell count from yesterday. He did receive 2 L of normal saline while here in the department and a work note. Last updated by Zo Snyder at 02/26/22 15:28 PAWSS <Zo Snyder - Last Filed: 02/26/22 15:36> Have you Been Recently Intoxicated or Drunk Within the Last 30 days?: Yes Have you Ever Experienced Previous Episodes of Alcohol Withdrawal?: No Have you ever Experienced Withdrawal Seizures?: No Have you ever Experienced Delirium Tremens(DT)s?: No Have you ever undergone Alcohol Rehabilitation Treatment (i.e, inpt ot outpatient treatment programs)?: No Have you ever Experienced Blackouts?: No Have you ever Combined Alcohol with other Downers within the last 90 days?: No Have you ever Combined Alcohol with any other Substance of Abuse during the last 90 days?: No Positive Blood Alcohol level on Presentation? [PCS.BAL]: No Evidence of Increased Autonomic Activity (i.e. HR>120, tremor, sweating, agitation, nausea)?: No Result: 1 <Lino Bowden NP - Last Filed: 02/26/22 23:42> Result: 1
[2022-02-26 15:28] LABS: ALT 21 U/L (16-63); AST 20 U/L (15-37); Albumin 4.3 g/dL (3.4-5.0); Alkaline Phosphatase 83 U/L (46-116); Anion Gap 8.8 mmol/L (3-11); BUN 26 mg/dL (7-18); Bilirubin, Total 0.9 mg/dL (0.2-1.0); CO2 28.2 mmol/L (21.0-32.0); Calcium 8.9 mg/dL (8.5-10.1); Chloride 101 mmol/L (98-107); Glucose 111 mg/dL (74-106); Magnesium 2.4 mg/dL (1.8-2.4); Potassium 3.7 mmol/L (3.5-5.1); Sodium 138 mmol/L (136-145); Total Protein 7.9 g/dL (6.4-8.2)
[2022-02-26 15:46] LABS: ETHANOL BLOOD < 3.0 mg/dL (<10)
[2022-02-26] MEDS: Ondansetron O.D.T. 4 MG TABEF, 3 TABS/BTL PO (15:56)
[2022-02-26] MEDS: Ondansetron 4 MG/2 ML VIAL IVP (15:56)
--- NOTE | 2022-02-26 16:45 | DI.RAD_ITS ---
Exam(s) XR CHEST 2V PA LATERAL EXAM: XR CHEST 2V PA LATERAL CLINICAL HISTORY: CT ? of LLL infiltrate. TECHNIQUE: 2D digital imaging was performed. COMPARISON: CT CT ABDOMEN PELVIS WO from 02/26/2022 FINDINGS: 2 views: Heart size is normal. The mediastinum is not widened. There is infiltrate in the left lower lobe. No pleural effusions. Right lung is clear. IMPRESSION: Left lower lobe infiltrate. DATA REPOSITORY: RADIATION DOSE DELIVERED:
[2022-02-26 17:17] LABS: Source Nasal/Nares
[2022-02-26 17:33] LABS: *AMPHETAMINES SCREEN URINE Negative (Negative); *BARBITURATES SCREEN URINE Negative (Negative); *BENZODIAZEPINES SCREEN URINE Negative (Negative); Cannabinoids THC Positive (Negative); Cocaine Screen,Urine Negative (Negative); METHADONE URINE SCREEN Negative (Negative); OPIATES URINE SCREEN Negative (Negative)
[2022-02-26 17:34] LABS: Tricyclic Antidepressants Negative (Negative)
[2022-02-26 17:40] LABS: Bilirubin Negative (Negative); Blood Negative (Negative); Clarity Clear (Clear); Glucose Negative (Negative); Ketones 40 mg/dL (Negative); Leukocyte Esterase Negative (Negative); Nitrite Negative (Negative); Specific Gravity 1.025 (1.005-1.025)
--- NOTE | 2022-02-26 18:08 | DI.VRAD_ITS ---
PROCEDURE INFORMATION: Exam: XR Chest Exam date and time: 02/26/2022 17:51 Age: 26 years old Clinical indication: Other: CT ? of lll infiltrate TECHNIQUE: Imaging protocol: XR of the chest. Views: 2 views. COMPARISON: CT ABDOMEN PELVIS WO 02/26/2022 16:49 FINDINGS: Lungs: Patchy opacity in the left lower lobe corresponds to the finding on CT. Pleural spaces: Trace left pleural fluid again seen. No pneumothorax. Heart/Mediastinum: No cardiomegaly. Bones/joints: No acute fracture. IMPRESSION: 1. Small left lower lobe pneumonia. 2. Trace left pleural fluid again seen. Dictated and Authenticated by: Poornima Suarez MD. Ordering:RAHUL Huynh MD
--- NOTE | 2022-02-26 18:25 | NUR.NOTE ---
Nursing Note: Referral given to Care Management needs PCP, recheck of pneumonia, nausea and vomiting in 1 week. Aimee Pacheco
[2022-02-26] MEDS: Azithromycin 250 MG TAB 500 MG PO (18:27)
[2022-02-26 19:24] LABS: COVID-19 PCR Negative (Negative)
--- NOTE | 2022-02-26 23:42 | ED.PROG_ITS ---
Date of service: 02/26/22 Time of Service: 15:50 Medical Decision Making Patient presenting to the emergency department with chief complaint of nausea vomiting. Please see initial documentation from Rimma Snyder for HPI, exam, review of systems, and plan of care. Patient signed out to me pending CT imaging for continued nausea vomiting. Labs were reviewed and patient overall has improvement of labs and noted BUN of 26 otherwise nondiagnostic CBC and CMP. Spoke to radiologist in regards to CT imaging which showed no acute intra- abdominal pathology of concern but possible left lower lobe infiltrate but no clear visualization of the lungs. We will plan on performing chest x-ray. Chest x-ray shows a left lower lobe infiltrate and small pleural effusion. Patient denies any respiratory symptoms but given that patient has findings of pneumonia along with main concern of GI symptoms legionnaires is considered. We will plan on placing patient on azithromycin and monitoring symptoms. Patient denies any primary care provider so patient placed upon list to follow-up with primary care provider preferably in 1 week for reassessment and to ensure that he is improving or further work-up of abnormal pulmonary finding. After discussion of diagnosis and plan of care patient has no further needs, q uestions, or concerns and states clear understanding to return to the emergency department for any worsening symptoms. Lab Data Lab results reviewed: Yes I reviewed the patient's lab results. Sign Out Sign Out Data: Sign Out Comment: Patient seen here for the second time in 2 days nausea vomiting constipation dehydration. He does have a history of cannabinoid hyperemesis. Pending CT result complaining of some lower abdominal pain. Labs are improved particularly white blood cell count from yesterday. He did receive 2 L of normal saline while here in the department and a work note. Last updated by Zo Snyder at 02/26/22 15:28 Discharge Plan Disposition Patient Disposition: HOME Condition: Improving Discharge Details Clinical Impression: Nausea & vomiting, Pneumonia Primary Care Provider: None,None ED Provider: Lino Bowden Home Meds and New Rx's Prescriptions: New azithromycin 250 mg tablet 250 mg PO DAILY 4 Days Qty: 4 0RF Rx Instructions: start on day 2 of therapy promethazine 25 mg tablet 25 mg PO TID PRN (Reason: nausea and vomiting) Qty: 10 0RF Discharge Instructions Instructions: Acute Nausea and Vomiting (ED), Pneumonia (ED) Additional Instructions: Please start your antibiotic tomorrow as your first dose was given in the emergency department. If you have any new or significant worsening of symptoms please return otherwise we will place you on a follow-up list with primary care provider for establishment of a new provider and for reassessment preferably next week. Stand Alone Forms: Work Release Referrals: Primary Care Provider [Outside] - 1 week
--- NOTE | 2022-02-28 11:04 | PDOC.ERCMACT ---
- If Service Date Differs Date of service: 02/28/22 Time of Service: 11:04 Care Management Activity Note Adán is seen in the ED for pneumonia. At the request of ED provider, CM coordinates a referral to Satnam Ford MD, of [facility], on-call provider, to assist Adán in obtaining a follow up appointment and in establishing care with a PCP.
== END 2022-02-26 18:33 | disposition home or self-care (01) ==
PROVIDERS: Registered Nurse Emergency; Emergency Provider Nurse Practitioner Family
DX: R11.2 Nausea with vomiting, unspecified (principal); J18.9 Pneumonia, unspecified organism; K59.00 Constipation, unspecified; R10.9 Unspecified abdominal pain; F12.20 Cannabis dependence, uncomplicated
CPT/HCPCS: 36415; 80053; 80307; 87635; 96361; 96374; 99284; 71046; 74176; 80320; 81003; 83735; 85025; J2405

== ENCOUNTER 2022-06-17 23:53 | Emergency (ER) | payer SELFPAY ==
[2022-06-17 23:56] VITALS: BP 154/94; PULSE 85; RESP 18; TEMP 36.9; O2SAT 96
--- NOTE | 2022-06-18 | RT.EKG_ITS ---
APPROVED REPORT Exam: Resting ECG Reason for Exam: hx of svt Patient Location: E HR:65 bpm ECG Measurements Heart Rate 65 AXIS IA 102 P -20 QRSd 88 QRS 58 QT 403 T 30 QTc 418 Conclusion Sinus rhythm...normal P axis, V-rate 60- 99 ST elev, probable normal early repol pattern...ST elevation, age<55 sinus rhtyhm normal axis, normal intervals, early repol anterolateral
[2022-06-18] MEDS: Normal Saline 1,000 ML 1000 ML IV ×2 (00:23→02:27)
[2022-06-18 00:27] LABS: Abs Immature Grans 0.09 10^3/uL (0.0-0.06); Absolute Basophil Count 0.04 10^3/uL (0.0-0.2); Absolute Lymphocyte Count 1.23 10^3/uL (1.2-3.4); Absolute Monocyte Count 1.89 10^3/uL (0.1-0.8); Basophils % 0.2; Immature Grans % 0.4; MCH 30.7 pg (27.0-33.0); MCV 91 fL (80-95); MPV 9.3 fL (8.0-11.0); Monocytes % 9.2; Neutrophils % 84.2; Platelet Count 355 10^3/uL (130-400); RBC 6.31 10^6/uL (4.36-5.78); RDW 12.8 % (11.8-14.1); RDW-SD 43.1 fL; WBC 20.55 10^3/uL (4.4-10.8)
[2022-06-18] MEDS: Droperidol 5 MG/2 ML VIAL 1.25 MG IVP (00:33)
[2022-06-18 00:36] LABS: HCT 57.1 % (40.0-50.0); HGB 19.4 g/dL (13.5-17.5)
[2022-06-18 00:42] LABS: ALT 25 U/L (16-63); AST 20 U/L (15-37); Albumin 5.4 g/dL (3.4-5.0); Alkaline Phosphatase 106 U/L (46-116); Anion Gap 15.7 mmol/L (3-11); BUN 33 mg/dL (7-18); Bilirubin, Total 0.7 mg/dL (0.2-1.0); CO2 27.3 mmol/L (21.0-32.0); CREATININE 1.6 mg/dL (0.70-1.30); Chloride 98 mmol/L (98-107); Estimated GFR 60.19 (mL/min/1.73m2); Glucose 156 mg/dL (74-106); Lipase 176 U/L (73-393); Potassium 4.3 mmol/L (3.5-5.1); Sodium 141 mmol/L (136-145); Total Protein 10.3 g/dL (6.4-8.2)
--- NOTE | 2022-06-18 00:47 | ED.GENADUL_ITS ---
Discharge Plan Disposition Patient Disposition: HOME Condition: Improving Discharge Details Chief Complaint: Nausea/Vomit/Diar Clinical Impression: Vomiting Primary Care Provider: None,None ED Provider: Mark Avelar Discharge Instructions Instructions: Acute Nausea and Vomiting (ED) Additional Instructions: Please follow-up with your primary care physician. Please return to the emergency department for any worsening symptoms. Medical Decision Making 27-year-old male history of cannabinoid hyperemesis syndrome presents with nausea and vomiting over the past several hours through the day, appears mildly uncomfortable, abdomen soft nontender nondistended, hemodynamically stable, dry heaving and emesis basin currently, consider cannabinoid hyperemesis versus viral gastroenteritis versus gastritis versus less likely bowel obstruction cholecystitis or appendicitis. Screening labs fluids trial of droperidol close reassessment 2: 41 given level of leukocytosis in the setting of nausea and vomiting, CT scan abdomen pelvis been ordered, patient currently resting comfortably no vomiting hemodynamically stable. Patient is refusing CT. Feeling much better after fluids and meds. Likely component of hemoconcentration. Patient to follow-up with primary care physician. HPI General Date/Time Provider Initiated Documentation: 06/18/22 00:07 . HPI Narrative: 27-year-old male history of cannabinoid hyperemesis syndrome, presents with nausea vomiting over the past day, denies history of abdominal surgery, does have history of SVT. Denies chest pain or shortness of breath. Related Data Allergies Allergy/AdvReac Type Severity Reaction Status Date / Time amoxicillin Allergy Unverified 06/18/22 00:01 Penicillins Allergy Unverified 06/18/22 00:01 General Stated Complaint: Nausea/Vomit/Diar RENEE: 3 Review of Systems Narrative: Review of Systems Constitutional: negative Eyes: negative ENT: negative Cardiovascular: negative Respiratory: negative Gastrointestinal: Nausea vomiting : negative Musculoskeletal: negative Skin: negative Neurologic: negative Psych: negative PFSH All Active Problems (Updated 06/18/22 @ 02:42 by Mark Avelar MD) Cannabinoid hyperemesis syndrome (Acute) Vomiting (Acute) Hypokalemia (Acute) Discharge planning issues (Acute) Leukocytosis (Acute) Alcohol use (Acute) Marijuana dependence (Acute) Social History Smoking/Tobacco Use Status: Former Tobacco Use Smoking risk assessment performed?: Yes Alcohol Intake: current Alcohol Intake frequency: 0-2 drinks per day Alcohol type: beer Substance use type: does not use Details: Reports not currently using marijuana. Do you feel safe at home: Yes Do you feel safe in your relationship?: Yes Exam Narrative Exam Narrative: Physical Examination General: alert, awake, cooperative, resting comfortably, no acute distress HEENT: normocephalic, atraumatic; PERRL, EOM intact, conjunctiva normal; no nasal discharge; moist mucous membranes, oral and pharyngeal mucosa normal, tolerating secretions Neck: supple, trachea midline; full ROM Chest: normal to inspection Respiratory: normal respiratory effort, speaking in full sentences, clear to auscultation, no wheezing, rales or rhonchi Cardiac: regular rate, regular rhythm, S1S2 intact, no murmurs rubs or gallops GI: abdomen soft, non-tender, non-distended; no palpable mass or hepat osplenomegaly Skin: no lesions, rashes or trauma appreciated Neuro: AAOx3, normal speech, moving all extremities Psych: Appropriate mood and affect Course Vital Signs Vital signs: Vital Signs Temperature 36.9 C 06/17/22 23:56 Pulse 85 06/17/22 23:56 Respiratory Rate 18 06/17/22 23:56 Blood Pressure 154/94 H 06/17/22 23:56 Pulse Oximetry 96 06/17/22 23:56 Temperature 36.9 C 06/17/22 23:56 Temperature Source Skin 06/17/22 23:56 Pulse 85 06/17/22 23:56 Respiratory Rate 18 06/17/22 23:56 Respiratory Effort 06/17/22 23:59 Blood Pressure 154/94 H 06/17/22 23:56 Blood Pressure Position Supine 06/17/22 23:56 Pulse Oximetry 96 06/17/22 23:56 Oxygen Delivery Method Room Air 06/17/22 23:56 Oxygen Flow Rate 0 06/17/22 23:56 Pain Level 7 06/17/22 23:56 Comment 06/17/22 23:56 Lab/Test Results Lab/Test Results: Laboratory Tests Range/Units 06/18/22 00:22 Sodium (136-145) mmol/L 141 Potassium (3.5-5.1) mmol/L 4.3 Chloride (98-107) mmol/L 98 Carbon Dioxide (21.0-32.0) mmol/L 27.3 Anion Gap (3-11) mmol/L 15.7 H BUN (7-18) mg/dL 33 H Creatinine (0.70-1.30) mg/dL 1.6 H Est GFR (CKD-EPI 2020) (mL/min/1.73m2) 60.19 Glucose (74-106) mg/dL 156 H Calcium (8.5-10.1) mg/dL 11.0 H Total Bilirubin (0.2-1.0) mg/dL 0.7 AST (15-37) U/L 20 ALT (16-63) U/L 25 Alkaline Phosphatase (46-116) U/L 106 Total Protein (6.4-8.2) g/dL 10.3 H Albumin (3.4-5.0) g/dL 5.4 H Lipase (73-393) U/L 176
[2022-06-18 00:54] LABS: RBC Morphology Normal
[2022-06-18 00:55] LABS: Diff Comment Agrees w/ Instrument
== END 2022-06-18 04:19 | disposition home or self-care (01) ==
PROVIDERS: Emergency Provider Emergency Medicine
DX: R11.2 Nausea with vomiting, unspecified (principal); R19.7 Diarrhea, unspecified; D72.829 Elevated white blood cell count, unspecified; Z87.891 Personal history of nicotine dependence
CPT/HCPCS: 80053; 83690; 93005; 96361; 96374; 99284; 85025; 93010; J1790

== ENCOUNTER 2022-06-21 22:27 | Emergency (ER) | payer SELFPAY ==
[2022-06-21 23:07] VITALS: BP 138/83; PULSE 71; RESP 16; TEMP 36; O2SAT 98
--- NOTE | 2022-06-21 23:15 | DI.CT_ITS ---
Exam(s) CT RENAL COLIC WO EXAM: CT RENAL COLIC WO INDICATION: left flank pain. COMPARISON: CT CT ABDOMEN PELVIS WO from 02/26/2022 TECHNIQUE: CT examination was performed without contrast administration. FINDINGS: Images obtained through the lung bases are unremarkable. Visualized portions of the liver and splee n appear intact. Visualized portions of the pancreas are unremarkable. Gallbladder and bile ducts are CT normal. Abdominal aorta is of normal diameter. No significant abdominal wall hernia. No significant abdominal or pelvic adenopathy. Adrenals appear normal bilaterally. The kidneys are normal in size and shape. There is no evidence of a renal mass, hydronephrosis, or n ephrolithiasis. No ureteral dilatation or calcification identified. Urinary bladder is unremarkable in appearance. IMPRESSION: Negative noncontrast abdominal and pelvic CT. No urinary tract calcification or obstruction. RADIATION DOSE DELIVERED: 517.55mGy.cm DLP 517.55mGy.cm Total DLP !Error CTDIvol DATA REPOSITORY: All CT scans at this facility are submitted to the National Radiology Data Registry (NRDR) Dose Index Registry (DIR) with the [employer] ([employer]). RADIATION OPTIMIZATION: All CT scans at this facility use at least one of these dose optimization te chniques: automated exposure control; mA and/or kV adjustment per patient size (includes targeted exa ms where dose is matched to clinical indication); or iterative reconstruction.
--- NOTE | 2022-06-21 23:22 | ED.GENADUL_ITS ---
Discharge Plan Disposition Patient Disposition: HOME Condition: Stable Discharge Details Chief Complaint: FlankPain Clinical Impression: Left flank pain Primary Care Provider: None,None ED Provider: Zachary Jacobson Home Meds and New Rx's Prescriptions: No Action No Known Home Meds Discharge Instructions Instructions: Flank Pain (ED) Additional Instructions: do not take the valium with the flexeril and do not drink alcohol or drive if you take the valium or flexeril follow up with your primary care provider this week if pain continues if you feel more ill, have fevers or persistent vomiting return to the emergency department Medical Decision Making 27 yo male who denies chronic medical problems, denies smoking, daily alcohol use or drug use, comes in with left flank/back pain. He states he had some pain 2-3 days ago and went to urgent care and was given flexeril. Was also seen in the ED for n/v. He states he has not had any abdominal pain or n/v since d/c and no pain until tonight around 8pm had recurrent left flank pain. Denies fevers, chills, chest pain, dyspnea. He localizes the pain to the left cva area, no rashes, soft nontender abdomen, no midline back pain. Suspect musculoskeletal pain but will obtain ct renal colic to evaluate for possible kidney stone labs and imaging unremarkable, he is sleeping on reassessment and awakens easily states pain resolved. Will have him continue prn ibuprofen and tylenol, and provide short course of valium. Advised to f/u with pcp and return precautions given. Suspect musculoskeletal pain Differential Diagnosis Differential Diagnosis: kidney stone, muscle spasm Medical Records Medical records reviewed: Yes I reviewed the patient's medical records. Imaging Data Radiologic Study: Attestation: I personally reviewed and interpreted this imaging study as follows: Imaging: CT Scan Radiologist's impression: no acute findings Lab Data Lab results reviewed: Yes I reviewed the patient's lab results. HPI General Mode of arrival: ambulatory . Date/Time Provider Initiated Documentation: 06/21/22 22:27 . Limitations to Documentation: no limitations . Information obtained by: patient . History of Present Illness 27 year old M presents to the emergency department with the chief complaint of left flank pain, described as moderate, Quality is described as sharp, Patient started experiencing this hour(s) (3) and it has been constant. No relieving factors improve symptom(s), No exacerbating factors reported . Patient notes other (flexeril). Patient did receive the following treatments prior to ar [facility], none Related Data Home Medications Medication Instructions Recorded Confirmed Unknown [No Known Home Meds] 06/21/22 06/21/22 Allergies Allergy/AdvReac Type Severity Reaction Status Date / Time amoxicillin Allergy Unverified 06/21/22 23:12 Penicillins Allergy Unverified 06/21/22 23:12 General Stated Complaint: FlankPain RENEE: 3 Review of Systems All systems reviewed & are unremarkable except as noted in HPI and below Constitutional Constitutional: Denies chills, Denies fever(s) and Denies weakness Cardiovascular Cardiovascular: Denies chest pain and Denies dyspnea Respiratory Respiratory: Denies cough and Denies dyspnea Gastrointestinal Gastrointestinal: Denies abdominal pain, Denies nausea and Denies vomiting Neurologic Neurologic: Denies weakness PFSH All Active Problems (Updated 06/22/22 @ 00:50 by Zachary Jacobson MD) Cannabinoid hyperemesis syndrome (Acute) Vomiting (Acute) Left flank pain (Acute) Hypokalemia (Acute) Discharge planning issues (Acute) Leukocytosis (Acute) Alcohol use (Acute) Marijuana dependence (Acute) Social History Smoking/Tobacco Use Status: Former Tobacco Use Smoking risk assessment performed?: Yes Alcohol Intake: current Alcohol Intake frequency: 0-2 drinks per day Alcohol type: beer Substance use type: does not use Details: Reports not currently using marijuana. Do you feel safe at home: Yes Do you feel safe in your relationship?: Yes Exam Const General: no acute distress Orientation: alert HENPR Head: normal to inspection Ears: external ears normal General nose exam: external nose normal Mouth: moist mucous membranes Eyes General: appearance normal, both eyes and all related structures Neck Neck: normal visual inspection Resp Effort & Inspection: normal respiratory effort and able to speak in complete sentences Cardio Rate: regular rate GI Palpation: soft and nontender Skin General skin exam: no rashes or lesions noted Neuro General: patient alert and patient oriented x3 Extrem General: normal to inspection Psych Mental Status: mental status grossly normal Course Vital Signs Vital signs: Vital Signs Temperature 36 C L 06/21/22 23:07 Pulse 71 06/21/22 23:07 Respiratory Rate 16 06/21/22 23:07 Blood Pressure 138/83 06/21/22 23:07 Pulse Oximetry 98 06/21/22 23:07 Temperature 36 C L 06/21/22 23:07 Temperature Source Temporal Artery Scan 06/21/22 23:07 Pulse 71 06/21/22 23:07 Respiratory Rate 16 06/21/22 23:07 Respiratory Effort 06/21/22 23:07 Blood Pressure 138/83 06/21/22 23:07 Blood Pressure Position Sitting 06/21/22 23:07 Pulse Oximetry 98 06/21/22 23:07 Oxygen Delivery Method Room Air 06/21/22 23:07 Oxygen Flow Rate 0 06/21/22 23:07 Pain Level 8 06/21/22 23:07
[2022-06-21] MEDS: diazePAM 5 MG TAB PO (23:47)
[2022-06-21 23:48] LABS: Bilirubin Negative (Negative); Blood Negative (Negative); Clarity Clear (Clear); Glucose Negative (Negative); Ketones Negative (Negative); Leukocyte Esterase Negative (Negative); Nitrite Negative (Negative); Specific Gravity >= 1.030 (1.005-1.025); Urobilinogen 0.2 EU/dL (Up TO 0.2); pH 5.5 (5-8)
[2022-06-21] MEDS: Ketorolac 15 MG/ML VIAL IM (23:48)
[2022-06-21 23:57] LABS: Abs Immature Grans 0.03 10^3/uL (0.0-0.06); Absolute Basophil Count 0.03 10^3/uL (0.0-0.2); Absolute Eosinophil Count 0.15 10^3/uL (0.0-0.7); Absolute Lymphocyte Count 2.26 10^3/uL (1.2-3.4); Absolute Monocyte Count 0.73 10^3/uL (0.1-0.8); Absolute Neutrophil Count 7.39 10^3/uL (1.2-6.7); Basophils % 0.3; Eosinophils % 1.4; HCT 45.2 % (40.0-50.0); HGB 14.8 g/dL (13.5-17.5); Immature Grans % 0.3; Lymphocytes % 21.3; MCH 30.3 pg (27.0-33.0); MCHC 32.7 % (32.0-36.0); MCV 92 fL (80-95); MPV 9.4 fL (8.0-11.0); Monocytes % 6.9; Neutrophils % 69.8; Platelet Count 222 10^3/uL (130-400); RBC 4.89 10^6/uL (4.36-5.78); RDW 12.3 % (11.8-14.1); RDW-SD 42.3 fL; WBC 10.59 10^3/uL (4.4-10.8)
[2022-06-22 00:08] LABS: ALT 21 U/L (16-63); AST 19 U/L (15-37); Albumin 3.6 g/dL (3.4-5.0); Alkaline Phosphatase 77 U/L (46-116); Anion Gap 6.6 mmol/L (3-11); BUN 20 mg/dL (7-18); Bilirubin, Total 0.4 mg/dL (0.2-1.0); CO2 28.4 mmol/L (21.0-32.0); CREATININE 0.9 mg/dL (0.70-1.30); Calcium 8.6 mg/dL (8.5-10.1); Chloride 103 mmol/L (98-107); Estimated GFR 120.05 (mL/min/1.73m2); Glucose 113 mg/dL (74-106); Lipase 78 U/L (73-393); Potassium 3.4 mmol/L (3.5-5.1); Sodium 138 mmol/L (136-145)
--- NOTE | 2022-06-22 00:38 | DI.VRAD_ITS ---
PROCEDURE INFORMATION: Exam: CT Abdomen And Pelvis Without Contrast Exam date and time: 06/22/2022 12:04 AM Age: 27 years old Clinical indication: Abdominal pain; Flank; Left TECHNIQUE: Imaging protocol: Computed tomography of the abdomen and pelvis without contrast. COMPARISON: CT ABDOMEN PELVIS WO 02/26/2022 4:49 PM FINDINGS: Lungs: Nonspecific atelectatic features or scarring of the left lung base. Liver: Normal. No mass. Liver dome is excluded. Gallbladder and bile ducts: Normal. No calcified stones. No ductal dilation. Pancreas: Normal. No ductal dilation. Spleen: Superior aspect of the spleen is excluded. No splenomegaly. Adrenal glands: Normal. No mass. Kidneys and ureters: Normal. No hydronephrosis. Stomach and bowel: Unremarkable. No obstruction. No mucosal thickening. Appendix: No evidence of appendicitis. Intraperitoneal space: Unremarkable. No free air. No significant fluid collection. Vasculature: Unremarkable. No abdominal aortic aneurysm. Lymph nodes: Unremarkable. No enlarged lymph nodes. Urinary bladder: Unremarkable as visualized. Reproductive: Unremarkable as visualized. Bones/joints: Unremarkable. No acute fracture. Soft tissues: Unremarkable. IMPRESSION: 1. No acute findings of the abdomen or pelvis. 2. No hydronephrosis, renal inflammation, or renal calculi. 3. Pancreas is unremarkable. 4. Biliary tree is normal. 5. No acute bowel pathology. 6. No free fluid. No free air. 7. Left lung base with features suggesting mild atelectasis or scarring. Dictated and Authenticated by: Yuri Mchugh MD. Ordering:MABEL Sharma MD
[2022-06-22] MEDS: diazePAM 5 MG TAB 15 MG PO (01:05)
[2022-06-22 01:10] VITALS: BP 122/70; PULSE 72; RESP 17; TEMP 35.8; O2SAT 96
== END 2022-06-22 01:09 | disposition home or self-care (01) ==
PROVIDERS: Physician Assistant; Emergency Provider Emergency Medicine
DX: R10.9 Unspecified abdominal pain (principal); Z87.891 Personal history of nicotine dependence
CPT/HCPCS: 36415; 80053; 83690; 96360; 96372; 99284; 74176; 81003; 85025; J1885

== ENCOUNTER 2022-09-03 18:37 | Emergency (ER) | payer BC, SELFPAY ==
--- NOTE | 2022-09-03 18:44 | ED.GENADUL_ITS ---
Discharge Plan Disposition Patient Disposition: Home Condition: Improving Discharge Details Clinical Impression: Influenza A, Nausea and vomiting Primary Care Provider: None,None ED Provider: Judy Almendarez Home Meds and New Rx's Prescriptions: No Action No Known Home Meds Discharge Instructions Instructions: Acute Nausea and Vomiting (ED), H1N1 Influenza (ED) Additional Instructions: You are positive today for the influenza A virus. This is best treated with fluids, rest and [id number] cough and cold medication. Alternate tylenol and motrin as needed and directed for pain. Take the Phenergan as needed and directed for nausea and vomiting. Follow-up with your primary care doctor in 1 week. Return to the emergency department with any worsening or new concerning symptoms. Discharge Data Discharge Physician: Judy Almendarez Medical Decision Making 185 -- 27-year-old male with a previous history of documented cannabinoid hyperemesis syndrome, marijuana dependence and alcohol use who currently denies any drug or alcohol use presents for dry cough and multiple episodes of vomiting since last night. Vitals within normal limits. Patient sitting up and appears restless and does vomit in the emesis bag which appears bilious during my evaluation. Patient asking several times if he can take a shower for his back pain. Discussed with patient that the shower is reserved for inpatients and we can attempt to treat his symptoms with fluids and IV medication. His abdomen is soft and nontender. IV fluids and IV Zofran given on arrival. As he is still vomiting, will give IV Phenergan in addition to IV Tylenol and Toradol. Patient stating I do not want a CT. The risks of and disability explained due to missed or delayed diagnoses and pt understands and demonstrates capacity to make decisions. 2014 --labs reviewed and reassuring, potentially consistent with mild dehydration. Influenza A positive. Patient reassessed and he is requesting to go home. He declined PO challenge. Offered Tamiflu but he declined. Will give Phenergan bottle to go. Advised to increase fluids, rest, alternate Tylenol and Motrin. Advised to follow up with the primary care doctor for re-evaluation. Usual and customary return precautions given prior to discharge. Medical Records Medical records reviewed: Yes I reviewed the patient's medical records. Lab Data Lab results reviewed: Yes I reviewed the patient's lab results. Labs: Laboratory Tests Range/Units 09/03/22 09/03/22 09/03/22 19:00 19:00 19:00 WBC (4.4-10.8) 10^3/uL 13.31 H RBC (4.36-5.78) 10^6/uL 5.69 Hgb (13.5-17.5) g/dL 17.4 Hct (40.0-50.0) % 51.9 H MCV (80-95) fL 91 MCH (27.0-33.0) pg 30.6 MCHC (32.0-36.0) % 33.5 RDW (11.8-14.1) % 12.8 Plt Count (130-400) 10^3/uL 264 MPV (8.0-11.0) fL 8.9 Immature Gran % 0.3 Neutrophils % 88.0 Lymphocytes % 4.7 Monocytes % 6.8 Eosinophils % 0.0 Basophils % 0.2 Nucleated RBC % (0.0-0.3) % 0.0 Absolute Neutrophils (1.2-6.7) 10^3/uL 11.71 H Absolute Lymphocytes (1.2-3.4) 10^3/uL 0.63 L Absolute Monocytes (0.1-0.8) 10^3/uL 0.91 H Absolute Eosinophils (0.0-0.7) 10^3/uL 0.00 Absolute Basophils (0.0-0.2) 10^3/uL 0.03 Sodium (136-145) mmol/L 142 Potassium (3.5-5.1) mmol/L 3.9 Chloride (98-107) mmol/L 101 Carbon Dioxide (21.0-32.0) mmol/L 29.0 Anion Gap (3-11) mmol/L 12.0 H BUN (7-18) mg/dL 21 H Creatinine (0.70-1.30) mg/dL 1.2 Est GFR (CKD-EPI 2020) (mL/min/1.73m2) 85.00 Glucose (74-106) mg/dL 164 H Calcium (8.5-10.1) mg/dL 10.0 Total Bilirubin (0.2-1.0) mg/dL 0.5 AST (15-37) U/L 17 ALT (16-63) U/L 19 Alkaline Phosphatase (46-116) U/L 103 Total Protein (6.4-8.2) g/dL 9.1 H Albumin (3.4-5.0) g/dL 4.9 Lipase (73-393) U/L 69 COVID-19 Source Nasopharynx SARS-CoV-2 (PCR) (Negative) Negative Influenza Type A (PCR) (Negative) Positive A Influenza Type B (PCR) (Negative) Negative RSV (PCR) (Negative) Negative Sign Out No HPI General Mode of arrival: ambulatory . Date/Time Provider Initiated Documentation: 09/03/22 18:42 . Limitations to Documentation: no limitations . Information obtained by: patient . HPI Narrative: Patient is a 27-year-old male with a previous history of cannabinoid hyperemesis syndrome presents for dry cough and multiple episodes of vomiting since last night. Patient states the vomiting has mainly been bile. He admits to occasional abdominal pain at times of vomiting but denies any at present. He denies any known fever, sore throat, difficulty breathing, chest pain or diarrhea or urinary symptoms. Patient last took Tylenol at 1 PM. He has not taken any ibuprofen today. Related Data Home Medications Medication Instructions Recorded Confirmed Unknown [No Known Home Meds] 06/21/22 09/03/22 Allergies Allergy/AdvReac Type Severity Reaction Status Date / Time amoxicillin Allergy Unverified 09/03/22 18:49 Penicillins Allergy Unverified 09/03/22 18:49 General Stated Complaint: Nausea/Vomit/Diar RENEE: 3 Review of Systems All systems reviewed & are unremarkable except as noted in HPI and below Constitutional Constitutional: Reports as per HPI, Denies chills and Denies fever(s) Eyes Eyes: Denies blurry vision ENT Ears, Nose, Mouth, and Throat: Denies dizziness, Denies sore throat and Denies throat swelling Cardiovascular Cardiovascular: Denies chest pain and Denies dyspnea Respiratory Respiratory: Denies cough and Denies dyspnea Gastrointestinal Gastrointestinal: Denies abdominal pain, Denies diarrhea, Reports nausea and Reports vomiting Genitourinary Genitourinary: Denies hematuria and Denies dysuria Musculoskeletal Musculoskeletal: Denies back pain and Denies numbness Integumentary/Breasts Skin/Breast: Denies lesions and Denies rash Neurologic Neurologic: Denies dizziness, Denies localized weakness and Denies numbness Allergic/Immunologic Allergic/Immunologic: Denies throat swelling PFSH All Active Problems (Updated 09/03/22 @ 20:24 by Judy Almendarez DO) Influenza A (Acute) Nausea and vomiting (Acute) Hypokalemia (Acute) Discharge planning issues (Acute) Leukocytosis (Acute) Medical History (Updated 09/03/22 @ 20:24 by Judy Almendarez DO) Alcohol use Cannabinoid hyperemesis syndrome Marijuana dependence Surgical History (Updated 09/03/22 @ 19:23 by Judy Almendarez DO) No significant past surgical history Social History Smoking/Tobacco Use Status: Former Tobacco Use Smoking risk assessment performed?: Yes Alcohol Intake: current Alcohol Intake frequency: 0-2 drinks per day Alcohol type: beer Substance use type: does not use Details: Reports not currently using marijuana. Do you feel safe at home: Yes Do you feel safe in your relationship?: Yes Exam Const General: cooperative and in distress mild (sitting up, vomiting in emesis bag) Orientation: alert, awake and oriented x3 HENMT Head: normal to inspection Face and sinus: normal facial exam Eyes General: appearance normal, both eyes and all related structures Pupils: PERRL EOM: EOM intact bilaterally Neck Neck: normal visual inspection and No submandibular swelling Lymphatic: no lymphadenopathy noted Chest Chest: normal inspection of the chest and no tenderness Resp Effort & Inspection: normal respiratory effort and able to speak in complete sentences Auscultation: clear to auscultation bilaterally Cardio Rate: regular rate Rhythm: regular rhythm GI Inspection: normal to inspection Palpation: soft, not firm, not rigid and nontender Auscultation: hypoactive bowel sounds Back/Spine/Pelvis Thoracic/Lumbar Spine: thoracic and lumbar spine normal to inspection Pelvis: no pain with anterior-posterior compression Skin General skin exam: no rashes or lesions noted Neuro General: patient alert, patient awake and patient oriented x3 Cognition: normal cognition Speech: speech normal Motor: muscle tone normal throughout Sensory Exam: no sensory deficits noted Extrem General: normal to inspection, full ROM, capillary refill normal, no calf tenderness bilaterally and no edema Psych Appearance: grossly normal Mental Status: mental status grossly normal Speech and Movement: speech and movement normal Affect: normal affect
[2022-09-03 18:45] VITALS: BP 136/88; PULSE 77; RESP 16; TEMP 36.6; O2SAT 98
[2022-09-03] MEDS: Ondansetron 4 MG/2 ML VIAL IVP (19:00)
[2022-09-03] MEDS: Normal Saline 1,000 ML 1000 ML IV (19:09)
[2022-09-03 19:15] LABS: Abs Immature Grans 0.04 10^3/uL (0.0-0.06); Absolute Basophil Count 0.03 10^3/uL (0.0-0.2); Absolute Lymphocyte Count 0.63 10^3/uL (1.2-3.4); Absolute Monocyte Count 0.91 10^3/uL (0.1-0.8); Absolute Neutrophil Count 11.71 10^3/uL (1.2-6.7); Basophils % 0.2; HCT 51.9 % (40.0-50.0); HGB 17.4 g/dL (13.5-17.5); Immature Grans % 0.3; Lymphocytes % 4.7; MCH 30.6 pg (27.0-33.0); MCHC 33.5 % (32.0-36.0); MCV 91 fL (80-95); MPV 8.9 fL (8.0-11.0); Monocytes % 6.8; Platelet Count 264 10^3/uL (130-400); RBC 5.69 10^6/uL (4.36-5.78); RDW 12.8 % (11.8-14.1); RDW-SD 43.3 fL; WBC 13.31 10^3/uL (4.4-10.8)
[2022-09-03] MEDS: ACETAMINOPHEN 1,000 MG/100 ML BTL 400 MG IVPB (19:25)
[2022-09-03 19:32] LABS: ALT 19 U/L (16-63); AST 17 U/L (15-37); Albumin 4.9 g/dL (3.4-5.0); Alkaline Phosphatase 103 U/L (46-116); BUN 21 mg/dL (7-18); Bilirubin, Total 0.5 mg/dL (0.2-1.0); CREATININE 1.2 mg/dL (0.70-1.30); Chloride 101 mmol/L (98-107); Glucose 164 mg/dL (74-106); Lipase 69 U/L (73-393); Potassium 3.9 mmol/L (3.5-5.1); Sodium 142 mmol/L (136-145); Total Protein 9.1 g/dL (6.4-8.2)
[2022-09-03] MEDS: Ketorolac 30 MG/ML VIAL IVP (19:44)
[2022-09-03 19:47] LABS: COVID-19 PCR Negative (Negative); Influenza A PCR Positive (Negative); Influenza B PCR Negative (Negative); RSV PCR Negative (Negative)
[2022-09-03 19:48] LABS: Source Nasopharynx
[2022-09-03 20:32] VITALS: BP 143/73; PULSE 81; TEMP 37.5; O2SAT 98
[2022-09-03 20:35] VITALS: BP 143/73; PULSE 81; RESP 16; TEMP 37.5; O2SAT 98
== END 2022-09-03 20:38 | disposition home or self-care (01) ==
PROVIDERS: Emergency Provider Physician Assistant
DX: J10.1 Influenza due to other identified influenza virus with other respiratory manifestations (principal); R11.2 Nausea with vomiting, unspecified; Z20.822 Contact with and (suspected) exposure to COVID-19
CPT/HCPCS: 36415; 80053; 83690; 87637; 96365; 96368; 96375; 99284; 85025; J0131; J1885; J2405

== ENCOUNTER 2022-12-11 11:07 | Emergency (ER) | payer BC, SELFPAY ==
[2022-12-11 11:18] VITALS: BP 116/74; PULSE 94; RESP 15; TEMP 36.7; O2SAT 92
[2022-12-11 12:07] LABS: Lactate 1.8 mmol/L (0.6-1.4)
[2022-12-11] MEDS: Normal Saline 1,000 ML 1000 ML IV ×2 (12:15→12:51)
[2022-12-11] MEDS: Normal Saline Flush 10 ML SYR IVP ×3 (12:16→13:38)
[2022-12-11] MEDS: Ondansetron 4 MG/2 ML VIAL IVP (12:16)
[2022-12-11 12:17] LABS: Abs Immature Grans 0.12 10^3/uL (0.0-0.06); Absolute Monocyte Count 0.67 10^3/uL (0.1-0.8); Absolute Neutrophil Count 18.19 10^3/uL (1.2-6.7); Basophils % 0.3; HCT 50.2 % (40.0-50.0); HGB 16.6 g/dL (13.5-17.5); Immature Grans % 0.6; Lymphocytes % 3.8; MCH 30.5 pg (27.0-33.0); MCHC 33.1 % (32.0-36.0); MCV 92 fL (80-95); MPV 8.8 fL (8.0-11.0); Monocytes % 3.4; Neutrophils % 91.9; Platelet Count 304 10^3/uL (130-400); RBC 5.45 10^6/uL (4.36-5.78); RDW 12.8 % (11.8-14.1); WBC 19.79 10^3/uL (4.4-10.8)
[2022-12-11 12:23] LABS: Absolute Basophil Count 0.06 10^3/uL (0.0-0.2); Absolute Lymphocyte Count 0.75 10^3/uL (1.2-3.4)
[2022-12-11 12:36] LABS: ALT 21 U/L (16-63); AST 16 U/L (15-37); Albumin 4.6 g/dL (3.4-5.0); Alkaline Phosphatase 125 U/L (46-116); Anion Gap 10.4 mmol/L (3-11); BUN 22 mg/dL (7-18); Bilirubin, Total 0.7 mg/dL (0.2-1.0); CO2 28.6 mmol/L (21.0-32.0); CREATININE 1.1 mg/dL (0.70-1.30); Chloride 100 mmol/L (98-107); Estimated GFR 94.36 (mL/min/1.73m2); Glucose 185 mg/dL (74-106); Lipase 17 U/L (16-77); Magnesium 2.5 mg/dL (1.8-2.4); Potassium 3.9 mmol/L (3.5-5.1); Sodium 139 mmol/L (136-145); Total Protein 9.3 g/dL (6.4-8.2)
[2022-12-11] MEDS: CLINDAMYCIN 900 MG/50 ML BAG 50 MG IVPB (12:52)
[2022-12-11] MEDS: Metoclopramide 10 MG/2 ML VIAL IVP (13:38)
--- NOTE | 2022-12-11 13:50 | W.ED.GENAD ---
Discharge Plan Disposition Patient Disposition: Home Discharge Details Clinical Impression: Cellulitis, Nausea vomiting and diarrhea ED Provider: Lino Bowden Home Meds and New Rx's Prescriptions: New metoclopramide HCl [Reglan] 10 mg tablet 10 mg PO Q6H PRN (Reason: nausea and vomiting) Qty: 10 0RF No Action sulfamethoxazole-trimethoprim 800-160 mg tablet 1 tab PO BID Patient Comments: TAKE ONE TABLET BY MOUTH TWICE A DAY FOR 7 DAYS Discharge Instructions Instructions: Cellulitis (ED), Acute Nausea and Vomiting (ED) Additional Instructions: If you change your mind and would like to be admitted or you are unable to keep your antibiotics down due to vomiting please return immediately to the emergency department for reassessment and reconsideration of admission. Otherwise take antibiotics as prescribed and if not improving next 48 to 72 hours please return to the emergency department or follow-up with primary care provider for reassessment Stand Alone Forms: Work Release Referrals: Primary Care Provider [Outside] Discharge Data Discharge Date/Time-TO BE ENTERED AT DEPARTURE: 12/11/22 16:11 Medical Decision Making Patient presenting to the emergency department for chief complaint of right elbow infection. He states that he thinks this may have been from a insect bite that happened last week but it has been getting worse over time. Then yesterday evening patient started having nausea vomiting and diarrhea that has been persistent with not feeling well. Patient denies fever but does state chills. Patient denies any IV drug use, any sick contacts, any recent travel. Physical exam shows cellulitis inferior to the right elbow that does not appear involving the joint no streaking lymphadenitis is noted. Abdominal exam shows diffuse nonfocal tenderness, no rigidity, no guarding. Review of vital signs show heart rate of 94 no hypotension afebrile no hypoxia normal respirations. We will plan on checking patient's labs and giving IV fluids, Zofran along with antibiotics pending results. Review of patient's labs show a significant leukocytosis with white count of 19.79, neutrophils of 18.19 and lymphocytes low at 0.75, patient does have slightly elevated lactate at 1.8, BUN of 22, glucose 185 magnesium at 2.5 with alk phos elevated at 125. Lipase is 17 and nonworrisome. We will give patient additional liter of fluids due to elevated lactate. Reassessed patient he still states continued nausea. Did give patient Reglan to see if this would help with his nausea. Patient is adamant that he does not want to be admitted and I did thoroughly address my concerns of his white count along with his symptoms and overall ill appearance. Patient continues to refuse admission and states he wants to be discharged home. We will discharge patient home with Reglan and clindamycin for cellulitis but patient was encouraged to return for any new or significant worsening of symptoms. After discussion of diagnosis and plan of care patient has no further needs, questions, or concerns and states clear understanding to return to the emergency department for any worsening symptoms. This documentation was generated using [place] dictation system, please disregard any oddities of phrase or misspellings. HPI General Mode of arrival: ambulatory. Date/Time Provider Initiated Documentation: 12/11/22 11:26. Limitations to Documentation: no limitations. Information obtained by: patient. History of Present Illness 27 year old M presents to the emergency department with the chief complaint of Right elbow infection, described as moderate, with intensity rated at 6. and is localized to the right and upper extremity. Patient reports no radiation. Patient started experiencing this week(s) (1) and it has been constant. No relieving factors improve symptom(s), Other factors that worsen symptoms (Possible bug bite) . Patient notes no other symptoms.. Patient did receive the following treatments prior to arrival, none Related Data Home Medications Medication Instructions Recorded Confirmed metoclopramide HCl 10 mg tablet 10 mg PO Q6H PRN nausea and 12/11/22 12/16/22 (Reglan) vomiting #10 tabs sulfamethoxazole 800 1 tab PO BID 12/16/22 12/16/22 mg-trimethoprim 160 mg tablet Previous Rx's Medication Instructions Recorded metoclopramide HCl 10 mg tablet 10 mg PO Q6H PRN nausea and 12/11/22 (Reglan) vomiting #10 tabs Allergies Allergy/AdvReac Type Severity Reaction Status Date / Time amoxicillin Allergy Unverified 12/11/22 11:22 Penicillins Allergy Unverified 12/11/22 11:22 General Stated Complaint: AnimalBite RENEE: 3 Review of Systems Constitutional Constitutional: Denies chills, Denies fever(s), Denies headache(s), Reports lethargy, Reports malaise and Reports poor appetite ENT Ears, Nose, Mouth, and Throat: Denies headache(s) Cardiovascular Cardiovascular: Denies chest pain and Denies dyspnea Respiratory Respiratory: Denies dyspnea Gastrointestinal Gastrointestinal: Denies abdominal pain, Reports diarrhea, Reports nausea and Reports vomiting Integumentary/Breasts Skin/Breast: Reports as per HPI and Reports erythema Neurologic Neurologic: Denies headache(s) PFSH All Active Problems (Updated 12/16/22 @ 10:29 by Zo Snyder NP) Nausea and vomiting (Acute) Cellulitis (Acute) Nausea vomiting and diarrhea (Acute) Hypokalemia (Acute) Discharge planning issues (Acute) Leukocytosis (Acute) Medical History Abscess of right arm Alcohol use Cannabinoid hyperemesis syndrome Marijuana dependence Surgical History No significant past surgical history Social History Smoking/Tobacco Use Status: Former Tobacco Use Smoking risk assessment performed?: Yes Alcohol Intake: current Alcohol Intake frequency: 0-2 drinks per day Alcohol type: beer Drug use: Never Substance use type: does not use Details: Reports not currently using marijuana. Do you feel safe at home: Yes Do you feel safe in your relationship?: Yes Exam Const General: cooperative, no acute distress and not ill appearing Orientation: alert, awake and oriented x3 HENMT Mouth: moist mucous membranes Resp Effort & Inspection: normal respiratory effort, able to speak in complete sentences and no respiratory distress Cardio Rate: regular rate Rhythm: regular rhythm GI Inspection: normal to inspection Palpation: soft, no hernias, no masses, not rigid and tender (Diffuse nonfocal) Auscultation: normal bowel sounds Neuro General: patient alert, patient awake, patient oriented x3, moves all extremities and no focal motor deficits Sensory Exam: no sensory deficits noted Extrem General: normal exam except as noted Left upper extremity: elbow/forearm Details: tenderness Location: of the proximal forearm, swelling Location: of the proximal forearm, normal ROM, distal pulses intact and other (Erythema to proximal forearm); no ecchymosis Course Vital Signs Vital signs: Vital Signs Temperature 36.7 C 12/11/22 11:18 Pulse 94 H 12/11/22 11:18 Respiratory Rate 15 12/11/22 11:18 Blood Pressure 116/74 12/11/22 11:18 Pulse Oximetry 92 12/11/22 11:18 Temperature 36.7 C 12/11/22 11:18 Pulse 94 H 12/11/22 11:18 Respiratory Rate 15 12/11/22 11:18 Respiratory Effort Normal, Non-Labored 12/11/22 12:20 Blood Pressure 116/74 12/11/22 11:18 Blood Pressure Position Sitting 12/11/22 11:18 Pulse Oximetry 92 12/11/22 11:18 Oxygen Delivery Method Room Air 12/11/22 11:18 Oxygen Flow Rate 0 12/11/22 11:18 Pain Level 6 12/11/22 11:18 Lab/Test Results Lab/Test Results: Laboratory Tests Range/Units 12/11/22 12/11/22 12/11/22 12:00 12:00 12:08 WBC (4.4-10.8) 10^3/uL 19.79 H RBC (4.36-5.78) 10^6/uL 5.45 Hgb (13.5-17.5) g/dL 16.6 Hct (40.0-50.0) % 50.2 H MCV (80-95) fL 92 MCH (27.0-33.0) pg 30.5 MCHC (32.0-36.0) % 33.1 RDW (11.8-14.1) % 12.8 Plt Count (130-400) 10^3/uL 304 MPV (8.0-11.0) fL 8.8 Immature Gran % 0.6 Neutrophils % 91.9 Lymphocytes % 3.8 Monocytes % 3.4 Eosinophils % 0.0 Basophils % 0.3 Nucleated RBC % (0.0-0.3) % 0.0 Absolute Neutrophils (1.2-6.7) 10^3/uL 18.19 H Absolute Lymphocytes (1.2-3.4) 10^3/uL 0.75 L Absolute Monocytes (0.1-0.8) 10^3/uL 0.67 Absolute Eosinophils (0.0-0.7) 10^3/uL 0.00 Absolute Basophils (0.0-0.2) 10^3/uL 0.06 VBG Lactate (0.6-1.4) mmol/L 1.8 H Sodium (136-145) mmol/L 139 Potassium (3.5-5.1) mmol/L 3.9 Chloride (98-107) mmol/L 100 Carbon Dioxide (21.0-32.0) mmol/L 28.6 Anion Gap (3-11) mmol/L 10.4 BUN (7-18) mg/dL 22 H Creatinine (0.70-1.30) mg/dL 1.1 Est GFR (CKD-EPI 2020) (mL/min/1.73m2) 94.36 Glucose (74-106) mg/dL 185 H Calcium (8.5-10.1) mg/dL 10.0 Magnesium (1.8-2.4) mg/dL 2.5 H Total Bilirubin (0.2-1.0) mg/dL 0.7 AST (15-37) U/L 16 ALT (16-63) U/L 21 Alkaline Phosphatase (46-116) U/L 125 H Total Protein (6.4-8.2) g/dL 9.3 H Albumin (3.4-5.0) g/dL 4.6 Lipase (16-77) U/L 17 PAWSS Have you Been Recently Intoxicated or Drunk Within the Last 30 days?: No Have you Ever Experienced Previous Episodes of Alcohol Withdrawal?: No Have you ever Experienced Withdrawal Seizures?: No Have you ever Experienced Delirium Tremens(DT)s?: No Have you ever undergone Alcohol Rehabilitation Treatment (i.e, inpt ot outpatient treatment programs)?: No Have you ever Experienced Blackouts?: No Have you ever Combined Alcohol with other Downers within the last 90 days?: No Have you ever Combined Alcohol with any other Substance of Abuse during the last 90 days?: No Positive Blood Alcohol level on Presentation? [PCS.BAL]: No Evidence of Increased Autonomic Activity (i.e. HR>120, tremor, sweating, agitation, nausea)?: No Result: 0
[2022-12-11 13:52] VITALS: BP 142/65; PULSE 78; TEMP 36.7; O2SAT 96
[2022-12-11 14:10] VITALS: BP 142/65; PULSE 78; RESP 16; TEMP 36.7; O2SAT 96
== END 2022-12-11 16:11 | disposition home or self-care (01) ==
PROVIDERS: Emergency Provider Nurse Practitioner Family
DX: L03.113 Cellulitis of right upper limb (principal); R11.2 Nausea with vomiting, unspecified; R19.7 Diarrhea, unspecified; D72.829 Elevated white blood cell count, unspecified
CPT/HCPCS: 36415; 80053; 83690; 96361; 96365; 96375; 99284; 81003; 83605; 83735; 85025; J2405; J2765

== ENCOUNTER 2022-12-12 21:44 | Observation (INO) | payer BC, SELFPAY ==
[2022-12-12 21:47] VITALS: BP 149/90; PULSE 74; RESP 18; TEMP 37; O2SAT 98
--- NOTE | 2022-12-12 22:26 | W.ED.GENAD ---
Discharge Plan Disposition Patient Disposition: Admit to [facility] Condition: Serious Discharge Details Chief Complaint: Nausea/Vomit/Diar Clinical Impression: Abscess of right arm, Nausea & vomiting Primary Care Provider: None,None ED Provider: Alejo Reynolds Home Meds and New Rx's Prescriptions: No Action clindamycin HCl [Cleocin HCl] 150 mg capsule 450 mg PO TID 7 Days Qty: 63 0RF metoclopramide HCl [Reglan] 10 mg tablet 10 mg PO Q6H PRN (Reason: nausea and vomiting) Qty: 10 0RF Medical Decision Making 2232 -- 27-year-old male seen here yesterday for abscess of his right elbow and associated nausea, received single dose of IV clindamycin and had diagnostic work-up revealing significant leukocytosis. It was recommended the patient be admitted yesterday and he declined. Since ED visit infection has improved. Unfortunately today's had increased nausea and vomiting has not been able to tolerate oral antibiotic. No fluctuance on exam of ulcerated abscess. The area does have some induration. His right elbow has full range of motion with no signs of septic joint. Plan to give dose of clindamycin IV and IV fluid bolus as well as antiemetic. Patient will require hospitalization given failing outpatient treatment. Consider bacteremia given leukocytosis, significant abscess/cellulitis and systemic symptoms. I will send blood cultures. 8120-- I spoke with Dr. Velez, discussed ED presentation and course, he agrees to accept the patient for admission. He request bridging orders be placed to the floor. -- Unclear of tetanus status. Will give booster. Lab Data Lab results reviewed: Yes I reviewed the patient's lab results. Labs: 12/12/22 23:00 Blood Blood Culture - Pending 12/12/22 22:19 Blood Blood Culture - Pending Laboratory Tests Range/Units 12/12/22 12/12/22 12/12/22 22:00 22:00 22:00 WBC (4.4-10.8) 10^3/uL 17.90 H RBC (4.36-5.78) 10^6/uL 5.46 Hgb (13.5-17.5) g/dL 16.9 Hct (40.0-50.0) % 49.1 MCV (80-95) fL 90 MCH (27.0-33.0) pg 31.0 MCHC (32.0-36.0) % 34.4 RDW (11.8-14.1) % 12.7 Plt Count (130-400) 10^3/uL 352 MPV (8.0-11.0) fL 9.0 Immature Gran % 0.4 Neutrophils % 78.3 Lymphocytes % 12.8 Monocytes % 8.2 Eosinophils % 0.1 Basophils % 0.2 Nucleated RBC % (0.0-0.3) % 0.0 Absolute Neutrophils (1.2-6.7) 10^3/uL 14.02 H Absolute Lymphocytes (1.2-3.4) 10^3/uL 2.29 Absolute Monocytes (0.1-0.8) 10^3/uL 1.47 H Absolute Eosinophils (0.0-0.7) 10^3/uL 0.02 Absolute Basophils (0.0-0.2) 10^3/uL 0.04 VBG Lactate Cancelled Sodium (136-145) mmol/L 139 Potassium (3.5-5.1) mmol/L 3.5 Chloride (98-107) mmol/L 100 Carbon Dioxide (21.0-32.0) mmol/L 30.8 Anion Gap (3-11) mmol/L 8.2 BUN (7-18) mg/dL 19 H Creatinine (0.70-1.30) mg/dL 1.2 Est GFR (CKD-EPI 2020) (mL/min/1.73m2) 85.00 Glucose (74-106) mg/dL 126 H Calcium (8.5-10.1) mg/dL 9.8 Total Bilirubin (0.2-1.0) mg/dL 0.4 AST (15-37) U/L 15 ALT (16-63) U/L 19 Alkaline Phosphatase (46-116) U/L 112 Total Protein (6.4-8.2) g/dL 8.5 H Albumin (3.4-5.0) g/dL 4.1 Lipase (16-77) U/L Range/Units 12/12/22 22:00 WBC (4.4-10.8) 10^3/uL RBC (4.36-5.78) 10^6/uL Hgb (13.5-17.5) g/dL Hct (40.0-50.0) % MCV (80-95) fL MCH (27.0-33.0) pg MCHC (32.0-36.0) % RDW (11.8-14.1) % Plt Count (130-400) 10^3/uL MPV (8.0-11.0) fL Immature Gran % Neutrophils % Lymphocytes % Monocytes % Eosinophils % Basophils % Nucleated RBC % (0.0-0.3) % Absolute Neutrophils (1.2-6.7) 10^3/uL Absolute Lymphocytes (1.2-3.4) 10^3/uL Absolute Monocytes (0.1-0.8) 10^3/uL Absolute Eosinophils (0.0-0.7) 10^3/uL Absolute Basophils (0.0-0.2) 10^3/uL VBG Lactate Sodium (136-145) mmol/L Potassium (3.5-5.1) mmol/L Chloride (98-107) mmol/L Carbon Dioxide (21.0-32.0) mmol/L Anion Gap (3-11) mmol/L BUN (7-18) mg/dL Creatinine (0.70-1.30) mg/dL Est GFR (CKD-EPI 2020) (mL/min/1.73m2) Glucose (74-106) mg/dL Calcium (8.5-10.1) mg/dL Total Bilirubin (0.2-1.0) mg/dL AST (15-37) U/L ALT (16-63) U/L Alkaline Phosphatase (46-116) U/L Total Protein (6.4-8.2) g/dL Albumin (3.4-5.0) g/dL Lipase (16-77) U/L 16 HPI General Mode of arrival: ambulatory. Date/Time Provider Initiated Documentation: 12/12/22 22:08. Limitations to Documentation: no limitations. Information obtained by: patient. HPI Narrative: 27-year-old male presents with chief complaint of nausea vomiting. Patient was seen here yesterday in the emergency department for right elbow abscess with associated nausea. He had diagnostic work-up that revealed significant leukocytosis. He was treated with a dose of clindamycin IV. Hospitalization was recommended and patient declined. He was discharged on clindamycin p.o. Unfortunately since discharge has had increased nausea and vomiting and was not able to tolerate antibiotic today. Patient notes he feels dehydrated. Patient does have a history of cannabinoid hyperemesis syndrome listed in his medical record. He notes that he usually takes showers which helps his nausea. He does continue to use marijuana but has not used marijuana in the past 3 days. Related Data Home Medications Medication Instructions Recorded Confirmed clindamycin HCl 150 mg capsule 450 mg PO TID 7 days #63 caps 12/11/22 12/12/22 (Cleocin HCl) metoclopramide HCl 10 mg tablet 10 mg PO Q6H PRN nausea and 12/11/22 12/12/22 (Reglan) vomiting #10 tabs Previous Rx's Medication Instructions Recorded clindamycin HCl 150 mg capsule 450 mg PO TID 7 days #63 caps 12/11/22 (Cleocin HCl) metoclopramide HCl 10 mg tablet 10 mg PO Q6H PRN nausea and 12/11/22 (Reglan) vomiting #10 tabs Allergies Allergy/AdvReac Type Severity Reaction Status Date / Time amoxicillin Allergy Unverified 12/11/22 11:22 Penicillins Allergy Unverified 12/11/22 11:22 General Stated Complaint: Nausea/Vomit/Diar RENEE: 3 Review of Systems All systems reviewed & are unremarkable except as noted in HPI and below Integumentary/Breasts Comments: Area of infection much improved per patient and fianc? since IV antibiotic yesterday PFSH All Active Problems (Updated 12/12/22 @ 23:21 by Alejo Reynolds MD) Cellulitis (Acute) Nausea vomiting and diarrhea (Acute) Abscess of right arm (Acute) Nausea & vomiting (Acute) Hypokalemia (Acute) Discharge planning issues (Acute) Leukocytosis (Acute) Medical History Alcohol use Cannabinoid hyperemesis syndrome Marijuana dependence Surgical History No significant past surgical history Social History Smoking/Tobacco Use Status: Former Tobacco Use Smoking risk assessment performed?: Yes Alcohol Intake: current Alcohol Intake frequency: 0-2 drinks per day Alcohol type: beer Substance use type: does not use Details: Reports not currently using marijuana. Do you feel safe at home: Yes Do you feel safe in your relationship?: Yes Exam Const General: cooperative and other (Appears weak and lethargic) Orientation: alert and awake HENMT Mouth: mucous membranes dry Eyes Conjunctivae: normal conjunctivae Sclera: normal sclerae Resp Auscultation: clear to auscultation bilaterally, no rales, no rhonchi and no wheezes Cardio Rate: regular rate and not tachycardic Rhythm: regular rhythm GI Palpation: soft, not firm, no guarding, no masses, not rigid and nontender Skin Rashes: rashes noted (Right elbow ulcerated abscess with no fluctuance, surrounding erythema) Neuro General: patient alert, patient awake, patient oriented x3 and tone normal Extrem Right upper extremity: elbow/forearm (FROM elbow with no joint effusion) Psych Appearance: grossly normal Mental Status: mental status grossly normal Speech and Movement: speech and movement normal Course Vital Signs Vital signs: Vital Signs Temperature 37.0 C 12/12/22 21:47 Pulse 74 12/12/22 21:47 Respiratory Rate 18 12/12/22 21:47 Blood Pressure 149/90 H 12/12/22 21:47 Pulse Oximetry 98 12/12/22 21:47 Temperature 37.0 C 12/12/22 21:47 Temperature Source Oral 12/12/22 21:47 Pulse 74 12/12/22 21:47 Respiratory Rate 18 12/12/22 21:47 Respiratory Effort Normal 12/12/22 21:54 Blood Pressure 149/90 H 12/12/22 21:47 Blood Pressure Position Sitting 12/12/22 21:47 Pulse Oximetry 98 12/12/22 21:47 Oxygen Delivery Method Room Air 12/12/22 21:47 Oxygen Flow Rate 0 12/12/22 21:47 Pain Level 6 12/12/22 21:47 Lab/Test Results Lab/Test Results: 12/12/22 22:19 Blood Blood Culture - Pending 12/12/22 22:19 Blood Blood Culture - Pending PAWSS Have you Been Recently Intoxicated or Drunk Within the Last 30 days?: No Have you Ever Experienced Previous Episodes of Alcohol Withdrawal?: No Have you ever Experienced Withdrawal Seizures?: No Have you ever Experienced Delirium Tremens(DT)s?: No Have you ever undergone Alcohol Rehabilitation Treatment (i.e, inpt ot outpatient treatment programs)?: No Have you ever Experienced Blackouts?: No Have you ever Combined Alcohol with other Downers within the last 90 days?: No Have you ever Combined Alcohol with any other Substance of Abuse during the last 90 days?: No Positive Blood Alcohol level on Presentation? [PCS.BAL]: No Evidence of Increased Autonomic Activity (i.e. HR>120, tremor, sweating, agitation, nausea)?: No Result: 0
[2022-12-12 22:49] LABS: Abs Immature Grans 0.07 10^3/uL (0.0-0.06); Absolute Basophil Count 0.04 10^3/uL (0.0-0.2); Absolute Monocyte Count 1.47 10^3/uL (0.1-0.8); Basophils % 0.2; Eosinophils % 0.1; HCT 49.1 % (40.0-50.0); HGB 16.9 g/dL (13.5-17.5); Immature Grans % 0.4; Lymphocytes % 12.8; MCHC 34.4 % (32.0-36.0); MCV 90 fL (80-95); Monocytes % 8.2; Neutrophils % 78.3; Platelet Count 352 10^3/uL (130-400); RBC 5.46 10^6/uL (4.36-5.78); RDW 12.7 % (11.8-14.1); RDW-SD 41.9 fL
[2022-12-12 22:53] LABS: Absolute Eosinophil Count 0.02 10^3/uL (0.0-0.7); Absolute Lymphocyte Count 2.29 10^3/uL (1.2-3.4); Absolute Neutrophil Count 14.02 10^3/uL (1.2-6.7)
[2022-12-12] MEDS: Ondansetron 4 MG/2 ML VIAL IVP (23:00)
[2022-12-12 23:03] LABS: Lipase 16 U/L (16-77)
[2022-12-12 23:07] LABS: ALT 19 U/L (16-63); AST 15 U/L (15-37); Albumin 4.1 g/dL (3.4-5.0); Alkaline Phosphatase 112 U/L (46-116); Anion Gap 8.2 mmol/L (3-11); BUN 19 mg/dL (7-18); Bilirubin, Total 0.4 mg/dL (0.2-1.0); CO2 30.8 mmol/L (21.0-32.0); CREATININE 1.2 mg/dL (0.70-1.30); Calcium 9.8 mg/dL (8.5-10.1); Chloride 100 mmol/L (98-107); Glucose 126 mg/dL (74-106); Potassium 3.5 mmol/L (3.5-5.1); Sodium 139 mmol/L (136-145); Total Protein 8.5 g/dL (6.4-8.2)
[2022-12-12] MEDS: Lactated Ringers 1,000 ML 1000 ML IV (23:17)
[2022-12-12] MEDS: CLINDAMYCIN 600 MG/50 ML BAG 100 MG IVPB (23:21)
[2022-12-12 23:32] LABS: Source Nasal/Nares
[2022-12-12] MEDS: Droperidol 5 MG/2 ML VIAL 1.25 MG IVP (23:47)
[2022-12-12 23:48] VITALS: BP 168/85; PULSE 94; RESP 17; TEMP 36.6; O2SAT 97
[2022-12-12 23:50] LABS: Lactate 1.4 mmol/L (0.6-1.4)
[2022-12-13 00:06] LABS: COVID-19 PCR Negative (Negative)
[2022-12-13 00:42] VITALS: BP 178/89; PULSE 75; RESP 18; TEMP 37.4; O2SAT 97
[2022-12-13] MEDS: CLINDAMYCIN 600 MG/50 ML BAG 100 MG IVPB (04:05)
[2022-12-13] MEDS: Normal Saline Flush 10 ML SYR IVP (04:06)
--- NOTE | 2022-12-13 04:14 | NUR.NOTE ---
Nursing Note: Patient is Alert & oriented x 3., admitted in Rm. 206 with cellulitis on right elbow, redness around and swollen noted. Had vomited in small amount of mucous brownish secretions. Requested to get shower but fall asleep. Woke up at 0300 hrs. and put to shower by DANDY TENDER for one hour, this content writer asked patient to get out of shower room for scheduled Clindamycin at 0400 hrs., Patient appears in good spirit, lie down on bed and requested for ice water. two IV access flushed and patent. At this time patient is quietly resting on bed with Antibiotic infusing well. Denied of unbearable pain when asked. Continue to monitor and call lights at reach.
[2022-12-13 06:30] VITALS: BP 153/74; PULSE 72; RESP 17; TEMP 36.8; O2SAT 96
--- NOTE | 2022-12-13 07:56 | NUR.NOTE ---
Nursing Note: 0756: Notified Dr. Carmenza Taylor that the patient was wanting to leave [facility]. They said that Brandon is going to see the patient.
--- NOTE | 2022-12-13 08:07 | DSE_ITS ---
Date of service: 12/13/22 Time of Service: 08:07 DS: Diagnosis Discharge Diagnosis (1) Cellulitis: Start date: 12/13/22 (Cellulitis elbow) Status: Acute Asessment and Plan: Cellulitis-elbow. Nausea and vomiting. Discharge Plan Disposition Patient Disposition: Eloped Condition: Serious Condition: Stable Discharge Details Reason For Visit: abscess/cellulitis right arm, nausea and vomiting Admit Date/Time: 12/12/22 23:22 Admit Provider: Tu Velez Attending Provider: Tu Velez Primary Care Provider: None,None Hospital Course Hospital Course: The patient was seen in emergency department and admission was recommended for treatment of cellulitis of his elbow. He received intravenous antibiotics clindamycin and antiemetics and IV fluids. I went to see him at 8:00 in the morning on the day of discharge but he did not want to wait and left AGAINST MEDICAL ADVICE. He can follow-up as an outpatient or return to the emergency department for worsening. Home Meds and New Rx's Prescriptions: No Action clindamycin HCl [Cleocin HCl] 150 mg capsule 450 mg PO TID 7 Days Qty: 63 0RF metoclopramide HCl [Reglan] 10 mg tablet 10 mg PO Q6H PRN (Reason: nausea and vomiting) Qty: 10 0RF Discharge Instructions Activity:: Activity as Tolerated Equipment/Supplies:: No Equipment Needed Diet:: As Tolerated Discharge Data Discharge Date/Time-TO BE ENTERED AT DEPARTURE: 12/13/22 08:02 DS: Summary Time Spent with Patient providing and/or coordinating discharge services: Less than 30 minutes Status at Discharge Functional status at discharge: independent ambulation Overall status at discharge: other Mental Status: other Speech and Movement: other Mood: other Affect: other Exam Narrative Exam Narrative: I discussed situation with the emergency physician in the middle of the night when he was admitted. I came to see him this morning at 8 AM but he did not want to wait and left. No examination was done by myself. Psych Mental Status: other Speech and Movement: other Mood: other Affect: other DS: Data Vitals/I&O Vitals and I&O: Vital Signs Temperature 36.8 C 12/13/22 06:30 Temperature Source Tympanic 12/13/22 06:30 Pulse 72 12/13/22 06:30 Pulse Rhythm Regular 12/13/22 08:03 Respiratory Rate 17 12/13/22 06:30 Respiratory Effort Normal, Non-Labored 12/13/22 08:03 Respiratory Depth Normal 12/13/22 08:03 Respiratory Pattern Normal 12/13/22 08:03 Blood Pressure 153/74 H 12/13/22 06:30 Blood Pressure Position Sitting 12/12/22 21:47 Pulse Oximetry 96 12/13/22 06:30 Oxygen Delivery Method Room Air 12/13/22 06:30 Oxygen Flow Rate 0 12/13/22 06:30 Pain Level 4 12/13/22 00:42 Intake & Output 12/12/22 12/12/22 12/13/22 11:59 23:59 11:59 Intake Total 50 / 50 Balance 50 / 50 Weight 58.967 kg 58.105 kg Intake: IV 50 / 50 Other: Urine Appearance Clear Emesis Description Mucous Data Completed and Pending Labs on day of discharge: Labs from last 24 hours 12/12/22 12/12/22 12/12/22 23:40 23:27 22:00 WBC RBC Hgb Hct MCV MCH MCHC RDW Plt Count MPV Immature Gran % Neutrophils % Lymphocytes % Monocytes % Eosinophils % Basophils % Nucleated RBC % Absolute Neutrophils Absolute Lymphocytes Absolute Monocytes Absolute Eosinophils Absolute Basophils VBG Lactate 1.4 Sodium Potassium Chloride Carbon Dioxide Anion Gap BUN Creatinine Est GFR (CKD-EPI 2020) Glucose Calcium Total Bilirubin AST ALT Alkaline Phosphatase Total Protein Albumin Lipase 16 COVID-19 Source Nasal/Nares SARS-CoV-2 (PCR) Negative 12/12/22 12/12/22 12/12/22 22:00 22:00 22:00 WBC 17.90 H RBC 5.46 Hgb 16.9 Hct 49.1 MCV 90 MCH 31.0 MCHC 34.4 RDW 12.7 Plt Count 352 MPV 9.0 Immature Gran % 0.4 Neutrophils % 78.3 Lymphocytes % 12.8 Monocytes % 8.2 Eosinophils % 0.1 Basophils % 0.2 Nucleated RBC % 0.0 Absolute Neutrophils 14.02 H Absolute Lymphocytes 2.29 Absolute Monocytes 1.47 H Absolute Eosinophils 0.02 Absolute Basophils 0.04 VBG Lactate Cancelled Sodium 139 Potassium 3.5 Chloride 100 Carbon Dioxide 30.8 Anion Gap 8.2 BUN 19 H Creatinine 1.2 Est GFR (CKD-EPI 2020) 85.00 Glucose 126 H Calcium 9.8 Total Bilirubin 0.4 AST 15 ALT 19 Alkaline Phosphatase 112 Total Protein 8.5 H Albumin 4.1 Lipase COVID-19 Source SARS-CoV-2 (PCR) 12/12/22 23:35 Blood Blood Culture - Pending 12/12/22 23:00 Blood Blood Culture - Pending Preliminary micro results at discharge 12/12/22 23:35 Blood Culture - Pending Blood 12/12/22 23:00 Blood Culture - Pending Blood PFSH All Active Problems (Updated 12/12/22 @ 23:21 by Alejo Reynolds MD) Cellulitis (Acute) Nausea vomiting and diarrhea (Acute) Abscess of right arm (Acute) Nausea & vomiting (Acute) Hypokalemia (Acute) Discharge planning issues (Acute) Leukocytosis (Acute) Medical History Alcohol use Cannabinoid hyperemesis syndrome Marijuana dependence Surgical History No significant past surgical history Social History Smoking/Tobacco Use Status: Former Tobacco Use Smoking risk assessment performed?: Yes Alcohol Intake: current Alcohol Intake frequency: 0-2 drinks per day Alcohol type: beer Substance use type: does not use Details: Reports not currently using marijuana. Do you feel safe at home: Yes Do you feel safe in your relationship?: Yes Time Spent with Patient Time Spent with Patient: <45 minutes Time was spent: preparing to see the patient(eg.review tests) and [facility] and[facility]or [facility]
--- NOTE | 2022-12-13 08:09 | NUR.NOTE ---
Nursing Note: Pt left AMA despite education on reasons why pt should stay and receive care. after education pt still decided to leave AMA. AMA form was signed and pt left at 0802.
== END 2022-12-13 08:02 | disposition left against medical advice (07) | DRG 603 ==
LOC: ER 23:29 → MS 12-13 00:03
PROVIDERS: Admitting Provider Family Medicine; Emergency Provider Student in an Organized Health Care Education/Training Program; Visit Provider Family Medicine
DX: L03.113 Cellulitis of right upper limb (principal); R11.2 Nausea with vomiting, unspecified; L02.413 Cutaneous abscess of right upper limb; E87.6 Hypokalemia; F10.90 Alcohol use, unspecified, uncomplicated; F12.20 Cannabis dependence, uncomplicated; D72.829 Elevated white blood cell count, unspecified; Z20.822 Contact with and (suspected) exposure to COVID-19
CPT/HCPCS: 80053; 83690; 87040; 87635; 96360; 96365; 96375; 99285; 83605; 85025; J1790; J2405

== ENCOUNTER 2022-12-16 07:32 | Emergency (ER) | payer BC, SELFPAY ==
[2022-12-16 07:35] VITALS: BP 142/98; PULSE 117; RESP 20; O2SAT 96
--- NOTE | 2022-12-16 08:09 | ED.GENADUL_ITS ---
Discharge Plan Disposition Patient Disposition: Home Discharge Details Clinical Impression: Nausea and vomiting Primary Care Provider: None,None ED Provider: Zo Snyder Meds and New Rx's Prescriptions: Continued metoclopramide HCl [Reglan] 10 mg tablet 10 mg PO Q6H PRN (Reason: nausea and vomiting) Qty: 10 0RF sulfamethoxazole-trimethoprim 800-160 mg tablet 1 tab PO BID Patient Comments: TAKE ONE TABLET BY MOUTH TWICE A DAY FOR 7 DAYS No Action clindamycin HCl [Cleocin HCl] 150 mg capsule 450 mg PO TID 7 Days Qty: 63 0RF Patient Comments: not taking Discharge Instructions Instructions: Acute Nausea and Vomiting (ED) Additional Instructions: Please continue your previously prescribed medications including the Bactrim and Reglan or metoclopramide for nausea. Labs did show some mild to moderate dehydration. Please keep changing the dressing of the wound daily. Keep clean and dry. Follow up with primary care provider in 3-5 days. Return to ED sooner if any worsening or concerns. Increase oral fluids. Please drink electrolyte drink such as Gatorade or similar. Stand Alone Forms: Work Release Medical Decision Making 27-year-old male presents to the ER with approximately 6 days of nausea vomiting and generalized weakness. Patient reports he is unable to keep anything down including Pepto-Bismol which she has been trying at home. Patient also has been admitted recently for a right arm abscess and eloped from the floor. He reports that he was seen at [facility] a few days ago and had packing placed to an abscess on his right arm. He denies any fever or chills. Denies diarrhea. Does have a past medical history of cannabinoid hyperemesis syndrome. Work-up ordered including CBC CMP urinalysis urine drug screen liter of fluid and Reglan and Pepcid. Blood cultures were not drawn they were done approximately 4 days ago which showed no growth. 09 17: Patient is trying ice chips p.o. He reports feeling much better after a liter of fluids, meds and Reglan. CBC shows white blood cell count of 15.59, hemoglobin 19 hematocrit 55.1, absolute neutrophils 10.66, sodium 138 potassium 3.1 BUN 19 creatinine 1.1, glucose 122. We will order an additional liter of saline. Patient tolerating p.o. fluids without difficulty. He does have Reglan at home. He was given 2 L normal saline, urinalysis has resulted and shows 30 protein trace ketones. UDS is positive for THC. Differential diagnosis includes not limited to gastroenteritis, hyperemesis cannabinoid syndrome which patient has a history of. This text was generated using Aledadeation system, please disregard any oddities of phrase or misspellings. Medical Records Medical records reviewed: Yes I reviewed the patient's medical records. HPI General Mode of arrival: ambulatory . Date/Time Provider Initiated Documentation: 12/16/22 08:00 . Limitations to Documentation: no limitations . Information obtained by: patient, RN notes reviewed and old records reviewed . HPI Narrative: 27-year-old male presents to the ER with approximately 6 days of nausea vomiting and generalized weakness. Patient reports he is unable to keep anything down including Pepto-Bismol which she has been trying at home. Patient also has been admitted recently for a right arm abscess and eloped from the floor. He reports that he was seen at [facility] a few days ago and had packing placed to an abscess on his right arm. He denies any fever or chills. Denies diarrhea. Does have a past medical history of cannabinoid hyperemesis syndrome. Related Data Home Medications Medication Instructions Recorded Confirmed clindamycin HCl 150 mg capsule 450 mg PO TID 7 days #63 caps 12/11/22 12/12/22 (Cleocin HCl) metoclopramide HCl 10 mg tablet 10 mg PO Q6H PRN nausea and 12/11/22 12/16/22 (Reglan) vomiting #10 tabs sulfamethoxazole 800 1 tab PO BID 12/16/22 12/16/22 mg-trimethoprim 160 mg tablet Previous Rx's Medication Instructions Recorded clindamycin HCl 150 mg capsule 450 mg PO TID 7 days #63 caps 12/11/22 (Cleocin HCl) metoclopramide HCl 10 mg tablet 10 mg PO Q6H PRN nausea and 12/11/22 (Reglan) vomiting #10 tabs Allergies Allergy/AdvReac Type Severity Reaction Status Date / Time amoxicillin Allergy Unverified 12/11/22 11:22 Penicillins Allergy Unverified 12/11/22 11:22 General Stated Complaint: Abd Prob RENEE: 3 Review of Systems All systems reviewed & are unremarkable except as noted in HPI and below Gastrointestinal Gastrointestinal: Reports nausea and Reports vomiting PFSH All Active Problems (Updated 12/16/22 @ 10:29 by Zo Snyder NP) Nausea and vomiting (Acute) Cellulitis (Acute) Nausea vomiting and diarrhea (Acute) Hypokalemia (Acute) Discharge planning issues (Acute) Leukocytosis (Acute) Medical History Abscess of right arm Alcohol use Cannabinoid hyperemesis syndrome Marijuana dependence Surgical History No significant past surgical history Social History Smoking/Tobacco Use Status: Former Tobacco Use Smoking risk assessment performed?: Yes Alcohol Intake: current Alcohol Intake frequency: 0-2 drinks per day Alcohol type: beer Drug use: Never Substance use type: does not use Details: Reports not currently using marijuana. Do you feel safe at home: Yes Do you feel safe in your relationship?: Yes Exam Narrative Exam Narrative: Constitutional: Alert and oriented x3. Appears stated age. Normal body habitus. Head: Normocephalic, no trauma. Eyes: Pupils PERRL, Red reflex noted, EOM's intact. Eyelids symmetrical without lesions, discharge, or swelling. ENT: Bilateral TM's WNL, External ear normal to inspection, no mastoid TTP, swelling, or erythema, Nasal turbinates WNL, no nasal discharge. Normal dentition, Posterior pharynx WNL, no exudate. Chest: RRR, Normal S1, S2, distal pulses intact. Resp: Lungs clear to auscultation bilaterally, no wheezes, rales, or rhonchi. Abdomen: Soft, non-distended, Normoactive bowel sounds all 4 quads. Musculoskeletal: Normal gait, 5/5 strength to all four extremities. Skin: No suspicious rashes or lesions. Capillary refill less than 2 sec. Neurologic: Cranial nerves II-XII intact. Alert and oriented x 3. Motor: No deficits noted. Sensory: Intact bilaterally all 4 extremities. Reflexes: DTR's intact bilaterally.. Hematologic/Lymphatic: No ecchymosis, no lymphadenopathy. Course Vital Signs Vital signs: Vital Signs Pulse 117 H 12/16/22 07:35 Respiratory Rate 20 12/16/22 07:35 Blood Pressure 142/98 H 12/16/22 07:35 Pulse Oximetry 96 12/16/22 07:35 Pulse 117 H 12/16/22 07:35 Respiratory Rate 20 12/16/22 07:35 Respiratory Effort Normal 12/16/22 07:41 Blood Pressure 142/98 H 12/16/22 07:35 Blood Pressure Position Sitting 12/16/22 07:35 Pulse Oximetry 96 12/16/22 07:35 Oxygen Delivery Method Room Air 12/16/22 07:35 Oxygen Flow Rate 0 12/16/22 07:35 Pain Level 0 12/16/22 07:35
[2022-12-16] MEDS: Normal Saline 1,000 ML 1000 ML IV ×2 (08:12→09:42)
[2022-12-16 08:15] LABS: Abs Immature Grans 0.08 10^3/uL (0.0-0.06); Absolute Basophil Count 0.06 10^3/uL (0.0-0.2); Absolute Eosinophil Count 0.05 10^3/uL (0.0-0.7); Absolute Monocyte Count 1.65 10^3/uL (0.1-0.8); Basophils % 0.4; Eosinophils % 0.3; HCT 55.1 % (40.0-50.0); Immature Grans % 0.5; Lymphocytes % 19.8; MCHC 34.8 % (32.0-36.0); MCV 86 fL (80-95); Monocytes % 10.6; Neutrophils % 68.4; RBC 6.41 10^6/uL (4.36-5.78); RDW-SD 37.8 fL; WBC 15.59 10^3/uL (4.4-10.8)
[2022-12-16 08:19] LABS: Absolute Lymphocyte Count 3.09 10^3/uL (1.2-3.4); Absolute Neutrophil Count 10.66 10^3/uL (1.2-6.7)
[2022-12-16 08:23] LABS: HGB 19.2 g/dL (13.5-17.5)
[2022-12-16] MEDS: FAMOTIDINE 20 MG in Normal Saline 100 ML 400 MG IVPB (08:26)
[2022-12-16] MEDS: Normal Saline 50 ML (08:27)
[2022-12-16] MEDS: Metoclopramide 10 MG/2 ML VIAL IVP (08:27)
[2022-12-16 08:40] LABS: Diff Comment Agrees w/ Instrument; RBC Morphology Normal
[2022-12-16 08:49] VITALS: PULSE 72; O2SAT 98
[2022-12-16 09:13] LABS: ALT 14 U/L (16-63); AST 9 U/L (15-37); Albumin 3.4 g/dL (3.4-5.0); Alkaline Phosphatase 88 U/L (46-116); Anion Gap 5.9 mmol/L (3-11); BUN 19 mg/dL (7-18); Bilirubin, Total 0.5 mg/dL (0.2-1.0); CO2 34.1 mmol/L (21.0-32.0); CREATININE 1.1 mg/dL (0.70-1.30); Calcium 8.5 mg/dL (8.5-10.1); Chloride 98 mmol/L (98-107); Estimated GFR 94.36 (mL/min/1.73m2); Glucose 122 mg/dL (74-106); Magnesium 2.3 mg/dL (1.8-2.4); Potassium 3.1 mmol/L (3.5-5.1); Sodium 138 mmol/L (136-145); Total Protein 7.2 g/dL (6.4-8.2)
[2022-12-16 10:24] LABS: Bilirubin Negative (Negative); Blood Negative (Negative); Clarity Clear (Clear); Glucose Negative (Negative); Ketones Trace mg/dL (Negative); Leukocyte Esterase Negative (Negative); Nitrite Negative (Negative); Specific Gravity >= 1.030 (1.005-1.025); Urobilinogen 0.2 mg/dL (Up to 0.2)
--- NOTE | 2022-12-16 10:31 | NUR.NOTE ---
Nursing Note:Referral given to Care Management for needs PCP, cellulitis, establish care/ in 1 week.
[2022-12-16 10:32] LABS: Mucus Moderate (Negative)
[2022-12-16 10:34] LABS: Bacteria Rare HPF (Negative); C & S Indicated? No; Casts Negative LPF (Negative); Crystals Negative HPF (Negative); Epithelial Cells Rare HPF (Negative); RBC 0-2 HPF (0-2); WBC 0-2 HPF (0-5)
[2022-12-16 10:36] LABS: *AMPHETAMINES SCREEN URINE Negative (Negative); *BARBITURATES SCREEN URINE Negative (Negative); *BENZODIAZEPINES SCREEN URINE Negative (Negative); Cannabinoids THC Positive (Negative); Cocaine Screen,Urine Negative (Negative); METHADONE URINE SCREEN Negative (Negative); OPIATES URINE SCREEN Negative (Negative)
[2022-12-16 10:39] LABS: Tricyclic Antidepressants Negative (Negative)
--- NOTE | 2022-12-16 13:05 | CMACTNOTE_ITS ---
- If Service Date Differs Date of service: 12/16/22 Time of Service: 13:05 Care Management Activity Note Adán is seen in the ED for cellulitis. At the request of ED provider, [facility] coordinates a referral to Tim De Guzman MD, of [facility], t-doc, to assist Adán in obtaining a follow up appointment and in establishing care with a PCP. He has BCBS for insurance.
== END 2022-12-16 10:44 | disposition home or self-care (01) ==
PROVIDERS: Emergency Provider Registered Nurse Emergency
DX: R11.2 Nausea with vomiting, unspecified (principal); R53.1 Weakness
CPT/HCPCS: 80053; 80307; 96361; 96365; 96375; 99284; 81003; 81015; 83735; 85025; J2765

== ENCOUNTER 2023-11-17 11:52 | Emergency (ER) | payer BC, SELFPAY ==
[2023-11-17 11:58] VITALS: BP 115/85; PULSE 85; RESP 16; TEMP 36.5; O2SAT 98
[2023-11-17 12:18] LABS: Absolute Basophil Count 0.07 10^3/uL (0.0-0.2); Absolute Eosinophil Count 0.02 10^3/uL (0.0-0.7); Absolute Lymphocyte Count 1.19 10^3/uL (1.2-3.4); Absolute Monocyte Count 0.85 10^3/uL (0.1-0.8); Absolute Neutrophil Count 20.25 10^3/uL (1.2-6.7); Basophils % 0.3; Eosinophils % 0.1; HCT 55.4 % (40.0-50.0); HGB 18.8 g/dL (13.5-17.5); Immature Grans % 0.4; Lymphocytes % 5.3; MCH 30.4 pg (27.0-33.0); MCHC 33.9 % (32.0-36.0); MCV 90 fL (80-95); MPV 8.8 fL (8.0-11.0); Monocytes % 3.8; Neutrophils % 90.1; Platelet Count 387 10^3/uL (130-400); RBC 6.18 10^6/uL (4.36-5.78); RDW 13.2 % (11.8-14.1); RDW-SD 43.3 fL; WBC 22.47 10^3/uL (4.4-10.8)
[2023-11-17] MEDS: Normal Saline 1,000 ML 1000 ML IV ×2 (12:19→13:21)
[2023-11-17] MEDS: Prochlorperazine 10 MG/2 ML VIAL IVP (12:19)
[2023-11-17 12:32] LABS: ALT 20 U/L (16-63); AST 16 U/L (15-37); Albumin 4.9 g/dL (3.4-5.0); Alkaline Phosphatase 111 U/L (46-116); Anion Gap 14.2 mmol/L (3-11); BUN 30 mg/dL (7-18); Bilirubin, Total 0.9 mg/dL (0.2-1.0); CO2 20.8 mmol/L (21.0-32.0); CREATININE 1.1 mg/dL (0.70-1.30); Calcium 10.1 mg/dL (8.5-10.1); Chloride 105 mmol/L (98-107); Diff Comment Agrees w/ Instrument; Estimated GFR 93.77 (mL/min/1.73m2); Glucose 186 mg/dL (74-106); Lipase 26 U/L (16-77); Magnesium 2.4 mg/dL (1.8-2.4); Potassium 4.3 mmol/L (3.5-5.1); RBC Morphology Normal; Sodium 140 mmol/L (136-145)
[2023-11-17 12:59] LABS: COVID-19 PCR Negative (Negative); Influenza A PCR Negative (Negative); Influenza B PCR Negative (Negative); RSV PCR Negative (Negative)
[2023-11-17 13:00] LABS: Source Nasopharynx
--- NOTE | 2023-11-17 13:04 | ED.GENADUL_ITS ---
HPI General Date/Time Provider Initiated Documentation: 11/17/23 12:00 . HPI Narrative: This 20-year-old male presents with nausea vomiting and diarrhea. He states his symptoms started abruptly at 3 AM this morning. Does smoke marijuana daily, denies regular alcohol use or any illicit drug use. Denies known sick contacts or spoiled food exposure. Denies any exotic travel. Denies any blood in stool or vomitus. States he has some mild cramping in his abdomen secondary to vomiting and states this started after the nausea vomiting and diarrhea. Denies fever or chills. Denies any urinary symptoms. Denies chest pain or shortness of breath. Related Data Home Medications Medication Instructions Recorded Confirmed prochlorperazine maleate 10 mg 10 mg PO TID PRN #10 tabs 11/17/23 tablet (Compazine) Previous Rx's Medication Instructions Recorded prochlorperazine maleate 10 mg 10 mg PO TID PRN #10 tabs 11/17/23 tablet (Compazine) Allergies Allergy/AdvReac Type Severity Reaction Status Date / Time amoxicillin Allergy Skin Rash Unverified 11/17/23 11:56 Penicillins Allergy Skin Rash Unverified 11/17/23 11:56 General Stated Complaint: Abd Prob RENEE: 3 Course Vital Signs Vital signs: Vital Signs Temperature 36.5 C 11/17/23 11:58 Pulse 85 11/17/23 11:58 Respiratory Rate 16 11/17/23 11:58 Blood Pressure 115/85 11/17/23 11:58 Pulse Oximetry 98 11/17/23 11:58 Temperature 36.5 C 11/17/23 11:58 Temperature Source Oral 11/17/23 11:58 Pulse 85 11/17/23 11:58 Respiratory Rate 16 11/17/23 11:58 Respiratory Effort Normal 11/17/23 12:16 Blood Pressure 115/85 11/17/23 11:58 Blood Pressure Position Sitting 11/17/23 11:58 Pulse Oximetry 98 11/17/23 11:58 Oxygen Delivery Method Room Air 11/17/23 11:58 Oxygen Flow Rate 0 11/17/23 11:58 Pain Level 7 11/17/23 11:58 Lab/Test Results Lab/Test Results: Laboratory Tests Range/Units 11/17/23 12:13 WBC (4.4-10.8) 10^3/uL 22.47 H RBC (4.36-5.78) 10^6/uL 6.18 H Hgb (13.5-17.5) g/dL 18.8 H Hct (40.0-50.0) % 55.4 H MCV (80-95) fL 90 MCH (27.0-33.0) pg 30.4 MCHC (32.0-36.0) % 33.9 RDW (11.8-14.1) % 13.2 Plt Count (130-400) 10^3/uL 387 MPV (8.0-11.0) fL 8.8 Immature Gran % 0.4 Neutrophils % 90.1 Lymphocytes % 5.3 Monocytes % 3.8 Eosinophils % 0.1 Basophils % 0.3 Nucleated RBC % (0.0-0.3) % 0.0 Absolute Neutrophils (1.2-6.7) 10^3/uL 20.25 H Absolute Lymphocytes (1.2-3.4) 10^3/uL 1.19 L Absolute Monocytes (0.1-0.8) 10^3/uL 0.85 H Absolute Eosinophils (0.0-0.7) 10^3/uL 0.02 Absolute Basophils (0.0-0.2) 10^3/uL 0.07 RBC Morphology Normal Sodium (136-145) mmol/L 140 Potassium (3.5-5.1) mmol/L 4.3 Chloride (98-107) mmol/L 105 Carbon Dioxide (21.0-32.0) mmol/L 20.8 L Anion Gap (3-11) mmol/L 14.2 H BUN (7-18) mg/dL 30 H Creatinine (0.70-1.30) mg/dL 1.1 Est GFR (CKD-EPI 2020) (mL/min/1.73m2) 93.77 Glucose (74-106) mg/dL 186 H Calcium (8.5-10.1) mg/dL 10.1 Magnesium (1.8-2.4) mg/dL 2.4 Total Bilirubin (0.2-1.0) mg/dL 0.9 AST (15-37) U/L 16 ALT (16-63) U/L 20 Alkaline Phosphatase (46-116) U/L 111 Total Protein (6.4-8.2) g/dL 9.0 H Albumin (3.4-5.0) g/dL 4.9 Lipase (16-77) U/L 26 COVID-19 Source Nasopharynx SARS-CoV-2 (PCR) (Negative) Negative Influenza Type A (PCR) (Negative) Negative Influenza Type B (PCR) (Negative) Negative RSV (PCR) (Negative) Negative Medical Decision Making This 28-year-old male presents for nausea vomiting diarrhea He does have marked leukocytosis, however when I look back at his prior visits he is presented with leukocytosis with elevated neutrophil count in the past and has had CT scan a year ago did not show acute pathology As patient's abdominal exam is benign, his lungs are clear and he is not hypoxic, he has no urinary symptoms and is otherwise healthy, I will simply have him have his CBC rechecked by his primary care physician within the next week, patient has any rebound or guarding, he is alert and oriented x 4, his abdominal exam is completely benign I think the risk of ordering CT outweighs benefit at this time He is feeling improvement at this time and we are performing a p.o. challenge Gap is elevated bicarb is minimally decreased, BUN is elevated consistent with dehydration Glucose 186 At time of reassessment patient is feeling marked improvement he appears clinically well, he is requesting discharge home and is able to tolerate p.o. need for outpatient CBC within the next week discussed with patient and he expressed understanding It Quality:SDOH Health Related Social Needs: No Data to Display PFSH All Active Problems (Updated 11/17/23 @ 13:35 by SHAHRZAD Hess) Nausea vomiting and diarrhea (Acute) Hypokalemia (Acute) Discharge planning issues (Acute) Leukocytosis (Acute) Medical History Abscess of right arm Alcohol use Cannabinoid hyperemesis syndrome Marijuana dependence Surgical History No significant past surgical history Social History Smoking/Tobacco Use Status: Former Tobacco Use Smoking risk assessment performed?: Yes Alcohol Intake: current Alcohol Intake frequency: 0-2 drinks per day Alcohol type: beer Drug use: Never Substance use type: does not use Details: Reports not currently using marijuana. Do you feel safe at home: Yes Do you feel safe in your relationship?: Yes PAWSS Have you Been Recently Intoxicated or Drunk Within the Last 30 days?: Yes Have you Ever Experienced Previous Episodes of Alcohol Withdrawal?: No Have you ever Experienced Withdrawal Seizures?: No Have you ever Experienced Delirium Tremens(DT)s?: No Have you ever undergone Alcohol Rehabilitation Treatment (i.e, inpt ot outpatient treatment programs)?: No Have you ever Experienced Blackouts?: No Have you ever Combined Alcohol with other Downers within the last 90 days?: No Have you ever Combined Alcohol with any other Substance of Abuse during the last 90 days?: No Positive Blood Alcohol level on Presentation? [PCS.BAL]: No Evidence of Increased Autonomic Activity (i.e. HR>120, tremor, sweating, agitation, nausea)?: No Result: 1 Discharge Plan Disposition Patient Disposition: Home Condition: Stable Discharge Details Clinical Impression: Nausea vomiting and diarrhea Primary Care Provider: Meli Souza ED Provider: Eugenia Christina Home Meds and New Rx's Prescriptions: New prochlorperazine maleate [Compazine] 10 mg tablet 10 mg PO TID PRNQty: 10 0RF Discharge Instructions Instructions: Acute Nausea and Vomiting (ED) Additional Instructions: Take Compazine as needed for nausea and vomiting Shelli malinda, apple juice, Gatorade Increase fluids May incorporate bland diet, chicken noodle soup, pudding, Jell-O or any as tolerated Return earlier should he have new or worsening complaints Please have a CBC rechecked by your doctor within the next week as her white blood cell count is elevated and return should you have abdominal pain or any new or worsening complaints Stand Alone Forms: Work Release Referrals: Meli Souza [Primary Care Provider] - Discharge Data Discharge Date/Time-TO BE ENTERED AT DEPARTURE: 11/17/23 13:59
== END 2023-11-17 13:59 | disposition home or self-care (01) ==
PROVIDERS: Emergency Provider Physician Assistant; PCP Nurse Practitioner Family
DX: R11.2 Nausea with vomiting, unspecified (principal); R19.7 Diarrhea, unspecified
CPT/HCPCS: 36415; 80053; 83690; 87637; 96361; 96374; 99284; 83735; 85025; 99285; J0780

== ENCOUNTER 2023-11-19 17:45 | Emergency (ER) | payer BC, SELFPAY ==
[2023-11-19 17:49] VITALS: BP 143/96; PULSE 89; RESP 18; TEMP 37.2; O2SAT 96
--- NOTE | 2023-11-19 17:55 | ED.GENADUL_ITS ---
Discharge Plan Disposition Patient Disposition: Eloped Condition: Stable Discharge Details Clinical Impression: Nausea and vomiting Primary Care Provider: Meli Souza ED Provider: Aba Ren Home Meds and New Rx's Prescriptions: No Action prochlorperazine maleate [Compazine] 10 mg tablet 10 mg PO TID PRNQty: 10 0RF Discharge Instructions Additional Instructions: Patient seen twice this week for nausea & vomiting, benign abdomen exam. Eloped. Daily cannabis use- labs improved from 2 days ago. Discharge Data Discharge Date/Time-TO BE ENTERED AT DEPARTURE: 11/19/23 19:11 HPI General Date/Time Provider Initiated Documentation: 11/19/23 17:54 . HPI Narrative: 28 year-old male presents to ED today by POV/ambulating with his and daughter with a chief complaint of continued nausea/vomiting- seen two days prior with negative work-up, daily cannabis use- states his diarrhea has resolved. Quality described as generalized abdominal pain, states he has been attempting slow hydration but gets too thirsty then overwhelms his stomach and vomits, no radiation to fever, hematemesis, black/bloody stools- states constipation but poor intake, denies URI symptoms. Severity is described as moderate. Palliating factors include Zofran at home without full relief. Provoking factors include nothing specific. Events leading up to the incident/Associated Symptoms: patient had no CT scan at prior visit. Patient not anticoagulated. Related Data Home Medications Medication Instructions Recorded Confirmed prochlorperazine maleate 10 mg 10 mg PO TID PRN #10 tabs 11/17/23 11/19/23 tablet (Compazine) Previous Rx's Medication Instructions Recorded prochlorperazine maleate 10 mg 10 mg PO TID PRN #10 tabs 11/17/23 tablet (Compazine) Allergies Allergy/AdvReac Type Severity Reaction Status Date / Time amoxicillin Allergy Skin Rash Unverified 11/19/23 17:52 Penicillins Allergy Skin Rash Unverified 11/19/23 17:52 General Stated Complaint: Nausea/Vomit/Diar RENEE: 3 Review of Systems All systems reviewed & are unremarkable except as noted in HPI and below Exam Narrative Exam Narrative: GENERAL APPEARANCE: Well-nourished, non-toxic, awake and alert, atraumatic, no acute distress. SKIN: Warm, pink, dry, intact, without rashes/lesions/ulcerations. HEAD: Normocephalic, atraumatic, normal hair distribution for gender/age. EYES: Pupils PERRLA, EOMs intact without nystagmus, normal conjunctiva, no exudates on lids/lashes. ENT: Nares patent, no circumoral cyanosis, no facial swelling NECK: Supple, trachea midline, painless cervical ROM. LUNGS/CHEST: Lungs CTA bilaterally, non-labored respirations, normal A/P diameter, symmetrical expansion, no chest wall deformity HEART (CV/PV): Regular rate and rhythm without murmur, no peripheral edema, no JVD. ABDOMEN: Soft, non-distended, no guarding, mild diffuse abdominal tenderness without Rovsing's, no perionteal signs. MSK: Normal ROM, no swelling/deformity to bilateral UEs or LEs, moving all extremities without weakness, no cyanosis, spine midline without tenderness, normal curvature. NEURO: Mental Status AAOx4 - alert to person, place, time, events No facial droop, no forehead involvement. Motor: No focal weakness - strength 5/5 in bilateral UEs and LEs, proximal and distal, symmetric. Sensory: sensation intact to light touch globally. Gait normal: patient ambulated without ataxia into ED room. PSYCH: euthymic, cooperative, pleasant, appropriate speech Course Vital Signs Vital signs: Vital Signs Temperature 37.2 C 11/19/23 17:49 Pulse 89 11/19/23 17:49 Respiratory Rate 18 11/19/23 17:49 Blood Pressure 143/96 H 11/19/23 17:49 Pulse Oximetry 96 11/19/23 17:49 Temperature 37.2 C 11/19/23 17:49 Temperature Source Oral 11/19/23 17:49 Pulse 89 11/19/23 17:49 Respiratory Rate 18 11/19/23 17:49 Respiratory Effort Normal 11/19/23 17:51 Blood Pressure 143/96 H 11/19/23 17:49 Blood Pressure Position Sitting 11/19/23 17:49 Pulse Oximetry 96 11/19/23 17:49 Oxygen Delivery Method Room Air 11/19/23 17:49 Oxygen Flow Rate 0 11/19/23 17:49 Medical Decision Making This dictation utilizes [id number] dictation software and may contain unedited grammatical errors. 28 y/o M presents to ED today with a chief complaint of continued nausea & vomiting seen 2 days ago, diarrhea has resolved, mild generalized abdominal pain, has Zofran, is a daily cannabis user. Patient has been attempting slow hydration but does take large amounts of fluids as he gets too thirsty. Patients' medical history: cannabis hyperemesis syndrome. Family and social history: noncontributory. Pertinent exam findings / vital signs include mild generalized abdominal tenderness, benign CP exam. Differential / pathologies of concern include gastroenteritis, cannabis hyperemesis syndrome, not profound dehydration. Diagnostic studies of: -CBC, CMP, Lipase, Lactate, magnesium, CRP/ESR, procalcitonin. -leukocytosis improved from 22>16 from 2 days prior, no anemia -CMP shows no hypomagnesemia, no hypokalemia -lactate neg, procal neg -lipase WNL -inflammatory markers negative -UA without infection, has proteinuria without hematuria Interventions of: -IVF, IV Zofran. ED Course/Assessment/Plan: 28-year-old male presents with continued nausea and vomiting states his diarrhea has improved, he was seen 2 days ago, daily cannabis use and suspected cannabis hyperemesis syndrome. His labs are improving and there is no major electrolyte abnormalities or ALDAIR to suggest profound dehydration. The patient stated he felt better after IV fluid and IV Zofran, he refused to wait for any discharge paperwork or provider discussion and eloped. Findings not consistent with profound dehydration, electrolyte abnormality, sepsis, more consistent with gastroenteritis of viral etiology versus cannabis hyperemesis syndrome Disposition of Nausea and Vomiting. Patient verbalized understanding of the plan and return to ED criteria and engaged in shared decision making. Medical Records Medical records reviewed: Yes I reviewed the patient's medical records. Lab Data Lab results reviewed: Yes I reviewed the patient's lab results. Labs: Laboratory Tests Range/Units 11/19/23 11/19/23 18:10 18:45 WBC (4.4-10.8) 10^3/uL 16.81 H RBC (4.36-5.78) 10^6/uL 5.77 Hgb (13.5-17.5) g/dL 17.5 Hct (40.0-50.0) % 51.2 H MCV (80-95) fL 89 MCH (27.0-33.0) pg 30.3 MCHC (32.0-36.0) % 34.2 RDW (11.8-14.1) % 12.9 Plt Count (130-400) 10^3/uL 328 MPV (8.0-11.0) fL 8.6 Immature Gran % 0.3 Neutrophils % 78.9 Lymphocytes % 12.6 Monocytes % 8.0 Eosinophils % 0.0 Basophils % 0.2 Nucleated RBC % (0.0-0.3) % 0.0 Absolute Neutrophils (1.2-6.7) 10^3/uL 13.26 H Absolute Lymphocytes (1.2-3.4) 10^3/uL 2.12 Absolute Monocytes (0.1-0.8) 10^3/uL 1.34 H Absolute Eosinophils (0.0-0.7) 10^3/uL 0.00 Absolute Basophils (0.0-0.2) 10^3/uL 0.03 ESR (0-15) mm/hr 3 VBG pH (7.31-7.41) 7.43 H VBG pCO2 (41-51) mmHg 51 VBG pO2 mmHg 37 VBG HCO3 (23-28) mmol/L 34 H VBG Total CO2 (24-29) mmol/L 29 VBG O2 Saturation % 73 VBG Base Excess (-2-3) mmol/L 9 H VBG Lactate (0.6-1.4) mmol/L 0.9 Sodium (136-145) mmol/L 139 Potassium (3.5-5.1) mmol/L 3.6 Chloride (98-107) mmol/L 99 Carbon Dioxide (21.0-32.0) mmol/L 31.9 Anion Gap (3-11) mmol/L 8.1 BUN (7-18) mg/dL 26 H Creatinine (0.70-1.30) mg/dL 1.1 Est GFR (CKD-EPI 2020) (mL/min/1.73m2) 93.77 Glucose (74-106) mg/dL 129 H Calcium (8.5-10.1) mg/dL 9.7 Magnesium (1.8-2.4) mg/dL 2.5 H Total Bilirubin (0.2-1.0) mg/dL 0.9 AST (15-37) U/L 14 L ALT (16-63) U/L 20 Alkaline Phosphatase (46-116) U/L 97 Creatine Kinase (39-308) U/L 82 C-Reactive Protein (<or=0.5) mg/dL < 0.50 Total Protein (6.4-8.2) g/dL 8.4 H Albumin (3.4-5.0) g/dL 4.5 Lipase (16-77) U/L 18 Procalcitonin ng/mL < 0.1 Urine Color (Yellow) Yellow Urine Clarity (Clear) Sl Cloudy Urine pH (5-8) 6.0 Ur Specific [place] (1.005-1.025) >= 1.030 H Urine Protein (Neg-Trace) mg/dL 30 H Urine Ketones (Negative) mg/dL Negative Urine Blood (Negative) Negative Urine Nitrite (Negative) Negative Urine Bilirubin (Negative) Small H Urine Urobilinogen (Up to 0.2) mg/dL 0.2 Ur Leukocyte Esterase (Negative) Negative Urine RBC (0-2) HPF Negative Urine WBC (0-5) HPF 0-2 Ur Epithelial Cells (Negative) HPF Rare Urine Crystals (Negative) HPF Negative Urine Bacteria (Negative) HPF Moderate Urine Casts (Negative) LPF Negative Urine Mucus (Negative) Heavy Ur Culture Indicated? No Urine Glucose (Negative) mg/dL Negative Quality:SDOH Health Related Social Needs: No Data to Display PFSH All Active Problems (Updated 11/19/23 @ 19:11 by SHAHRZAD Toussaint) Nausea and vomiting (Acute) Nausea vomiting and diarrhea (Acute) Hypokalemia (Acute) Discharge planning issues (Acute) Leukocytosis (Acute) Medical History Abscess of right arm Alcohol use Cannabinoid hyperemesis syndrome Marijuana dependence Surgical History No significant past surgical history Social History Smoking/Tobacco Use Status: Former Tobacco Use Smoking risk assessment performed?: Yes Alcohol Intake: current Alcohol Intake frequency: 0-2 drinks per day Alcohol type: beer Drug use: Never Substance use type: does not use Details: Reports not currently using marijuana. Do you feel safe at home: Yes Do you feel safe in your relationship?: Yes
[2023-11-19 18:01] VITALS: BP 143/96; PULSE 89; RESP 18; TEMP 37.2; O2SAT 96
[2023-11-19] MEDS: Lactated Ringers 1,000 ML 1000 ML IV (18:14)
[2023-11-19] MEDS: Ondansetron 4 MG/2 ML VIAL IVP (18:15)
[2023-11-19 18:18] LABS: BE (Venous) 9 mmol/L (-2-3); HCO3 (Venous) 34 mmol/L (23-28); O2 Sat (Venous) 73 %; TCO2 (Venous) 29 mmol/L (24-29); pCO2 (Venous) 51 mmHg (41-51); pH (Venous) 7.43 (7.31-7.41); pO2 (Venous) 37 mmHg
[2023-11-19 18:19] LABS: Lactate 0.9 mmol/L (0.6-1.4)
[2023-11-19 18:20] LABS: Abs Immature Grans 0.05 10^3/uL (0.0-0.06); Absolute Lymphocyte Count 2.12 10^3/uL (1.2-3.4); Basophils % 0.2; HCT 51.2 % (40.0-50.0); HGB 17.5 g/dL (13.5-17.5); Immature Grans % 0.3; Lymphocytes % 12.6; MCH 30.3 pg (27.0-33.0); MCHC 34.2 % (32.0-36.0); MCV 89 fL (80-95); MPV 8.6 fL (8.0-11.0); Neutrophils % 78.9; Platelet Count 328 10^3/uL (130-400); RBC 5.77 10^6/uL (4.36-5.78); RDW 12.9 % (11.8-14.1); RDW-SD 42.1 fL; WBC 16.81 10^3/uL (4.4-10.8)
[2023-11-19 18:21] LABS: Absolute Basophil Count 0.03 10^3/uL (0.0-0.2); Absolute Monocyte Count 1.34 10^3/uL (0.1-0.8); Absolute Neutrophil Count 13.26 10^3/uL (1.2-6.7); ESR 3 mm/hr (0-15)
[2023-11-19 18:39] LABS: Lipase 18 U/L (16-77); Magnesium 2.5 mg/dL (1.8-2.4)
[2023-11-19 18:43] LABS: ALT 20 U/L (16-63); AST 14 U/L (15-37); Albumin 4.5 g/dL (3.4-5.0); Alkaline Phosphatase 97 U/L (46-116); Anion Gap 8.1 mmol/L (3-11); BUN 26 mg/dL (7-18); Bilirubin, Total 0.9 mg/dL (0.2-1.0); C-Reactive Protein < 0.50 mg/dL (<or=0.5); CO2 31.9 mmol/L (21.0-32.0); CREATININE 1.1 mg/dL (0.70-1.30); Calcium 9.7 mg/dL (8.5-10.1); Chloride 99 mmol/L (98-107); Creatine Kinase 82 U/L (39-308); Estimated GFR 93.77 (mL/min/1.73m2); Glucose 129 mg/dL (74-106); Potassium 3.6 mmol/L (3.5-5.1); Sodium 139 mmol/L (136-145); Total Protein 8.4 g/dL (6.4-8.2)
[2023-11-19 18:53] LABS: Procalcitonin < 0.1 ng/mL
[2023-11-19 18:57] LABS: Bilirubin Small (Negative); Blood Negative (Negative); Clarity Sl Cloudy (Clear); Glucose Negative (Negative); Ketones Negative (Negative); Leukocyte Esterase Negative (Negative); Nitrite Negative (Negative); Specific Gravity >= 1.030 (1.005-1.025); Urobilinogen 0.2 mg/dL (Up to 0.2)
[2023-11-19 19:09] LABS: Bacteria Moderate HPF (Negative); C & S Indicated? No; Casts Negative LPF (Negative); Crystals Negative HPF (Negative); Epithelial Cells Rare HPF (Negative); Mucus Heavy (Negative); RBC Negative HPF (0-2); WBC 0-2 HPF (0-5)
== END 2023-11-19 19:11 | disposition left against medical advice (07) ==
PROVIDERS: Emergency Provider Physician Assistant; PCP Nurse Practitioner Family
DX: R11.2 Nausea with vomiting, unspecified (principal); F12.90 Cannabis use, unspecified, uncomplicated; Z53.29 Procedure and treatment not carried out because of patient's decision for other reasons; Z87.891 Personal history of nicotine dependence
CPT/HCPCS: 80053; 82550; 82805; 83690; 84145; 85652; 96361; 96374; 99284; 81003; 81015; 83605; 83735; 85025; 86140; 99283; J2405

== ENCOUNTER 2024-04-11 16:16 | Emergency (ER) | payer BC, SELFPAY ==
[2024-04-11 16:19] VITALS: BP 127/81; PULSE 89; RESP 14; TEMP 36.6; O2SAT 99
== END 2024-04-11 18:25 | disposition left against medical advice (07) ==
LOC: ER 16:29
PROVIDERS: Emergency Provider Emergency Medicine; PCP Nurse Practitioner Family
DX: S40.012A Contusion of left shoulder, initial encounter (principal); W22.8XXA Striking against or struck by other objects, initial encounter
CPT/HCPCS: 99282

== ENCOUNTER 2024-04-11 20:44 | Emergency (ER) | payer BC, SELFPAY ==
[2024-04-11 20:46] VITALS: BP 136/76; PULSE 90; RESP 14; TEMP 36.9; O2SAT 97
--- NOTE | 2024-04-11 21:45 | ED.GENADUL_ITS ---
Discharge Plan Disposition Patient Disposition: Home Condition: Improving Discharge Details Chief Complaint: Orthopedic Clinical Impression: Contusion of left shoulder Primary Care Provider: Meli Souza ED Provider: Mark Avelar Home Meds and New Rx's Prescriptions: No Action prochlorperazine maleate [Compazine] 10 mg tablet 10 mg PO TID PRNQty: 10 0RF acetaminophen 325 mg capsule 650 mg PO ONCE PRN Discharge Instructions Instructions: Acute Pain, Adult Additional Instructions: Continue with ice rest ibuprofen and/or acetaminophen as needed for pain. Please return to the emergency department for any worsening symptoms HPI General Date/Time Provider Initiated Documentation: 04/11/24 21:43 . HPI Narrative: 28-year-old male presents with left scapular discomfort after and after he fell onto his left shoulder/back while working earlier today, patient was helmeted, no head or neck discomfort, no trouble breathing, worst discomfort in shoulder blade region when raising arm above his head Related Data Home Medications ?Medication ?Instructions ?Recorded ?Confirmed prochlorperazine maleate 10 mg 10 mg PO TID PRN #10 tabs 11/17/23 04/11/24 tablet (Compazine) acetaminophen 325 mg capsule 650 mg PO ONCE PRN 04/11/24 04/11/24 Previous Rx's ?Medication ?Instructions ?Recorded prochlorperazine maleate 10 mg 10 mg PO TID PRN #10 tabs 11/17/23 tablet (Compazine) Allergies Allergy/AdvReac Type Severity Reaction Status Date / Time amoxicillin Allergy Skin Rash Unverified 04/11/24 16:21 Penicillins Allergy Skin Rash Unverified 04/11/24 16:21 General Stated Complaint: Orthopedic RENEE: 4 Course Vital Signs Vital signs: Vital Signs Temperature 36.9 C 04/11/24 20:46 Pulse 90 04/11/24 20:46 Respiratory Rate 14 04/11/24 20:46 Blood Pressure 136/76 04/11/24 20:46 Pulse Oximetry 97 04/11/24 20:46 Temperature 36.9 C 04/11/24 20:46 Temperature Source Skin 04/11/24 20:46 Pulse 90 04/11/24 20:46 Respiratory Rate 14 04/11/24 20:46 Respiratory Effort Normal, Non-Labored 04/11/24 21:09 Blood Pressure 136/76 04/11/24 20:46 Blood Pressure Position Sitting 04/11/24 20:46 Pulse Oximetry 97 04/11/24 20:46 Oxygen Delivery Method Room Air 04/11/24 20:46 Oxygen Flow Rate 0 04/11/24 20:46 Pain Level 4 04/11/24 21:04 Medical Decision Making 28-year-old male presents with left scapular discomfort after and after he fell onto his left shoulder/back while working earlier today, patient was helmeted, no head or neck discomfort, no trouble breathing, worst discomfort in shoulder blade region when raising arm above his head; patient rest comfortably hemodynamically stable no acute distress airway intact breathing equal bilaterally, good circulation, normotensive, full strength 5 out of 5 upper and lower extremities bilaterally ambulatory without assistance no ataxia, cranial nerves intact normal speech normal sensorium GCS 15; must consider scapular contusion versus scapular fracture versus posterior rib fracture lower suspicion for pneumothorax or hemothorax, no midline spinal tenderness step-off crepitus or deformity lower suspicion for spinal cord injury given examination and symptomatology, will administer Toradol for anti-inflammatory analgesia purposes, will obtain x-ray scapula, x-ray ribs and chest PA 23: 06 patient resting actively no acute distress. Feeling better after rest Toradol and ice. No evidence of fracture or dislocation Home care instruction return precautions given Quality:SDOH Health Related Social Needs: No Data to Display PFSH All Active Problems (Updated 04/11/24 @ 23:08 by Mark Avelar MD) Contusion of left shoulder (Acute) Hypokalemia (Acute) Discharge planning issues (Acute) Leukocytosis (Acute) Medical History Abscess of right arm Alcohol use Cannabinoid hyperemesis syndrome Marijuana dependence Surgical History No significant past surgical history Social History Smoking/Tobacco Use Status: Former Tobacco Use Smoking risk assessment performed?: Yes Alcohol Intake: current Alcohol Intake frequency: 0-2 drinks per day Alcohol type: beer Drug use: Never Substance use type: does not use Details: Reports not currently using marijuana. Do you feel safe at home: Yes Do you feel safe in your relationship?: Yes
[2024-04-11] MEDS: Ketorolac 15 MG/ML VIAL IM (21:51)
--- NOTE | 2024-04-11 22:14 | DI.RAD_ITS ---
Exam(s) XR SCAPULA LT EXAM: XR SCAPULA LT CLINICAL HISTORY: tree fell and hit shoulder. TECHNIQUE: 2D digital imaging was performed. COMPARISON: No exams were available for comparison FINDINGS: 3 views No evidence of fracture of the scapula and glenohumeral joint appears unremarkable as does the AC dalia nt and ipsilateral partially visualized clavicle. Bone density normal. No osseous lesions. IMPRESSION: Unremarkable appearing left clavicle. DATA REPOSITORY: RADIATION DOSE DELIVERED:
--- NOTE | 2024-04-11 22:14 | DI.RAD_ITS ---
Exam(s) XR RIBS LT PA CHEST 3V EXAM: XR RIBS LT PA CHEST 3V CLINICAL HISTORY: tree fell on shoulder blade/back. TECHNIQUE: 2D digital imaging was performed. COMPARISON: CR,XR XR CHEST 2V PA LATERAL from 02/26/2022 FINDINGS: 3 views No left rib fractures identified. No clavicle fracture. No scapular fracture. Mild increased markings in left lower lobe retrocardiac region. Slight blunting of the left costophr enic angle. No pneumothorax evident. IMPRESSION: Mild increased markings in the left lower lobe retrocardiac region. Appropriate follow-up mame suarez DATA REPOSITORY: RADIATION DOSE DELIVERED:
--- NOTE | 2024-04-11 22:57 | DI.VRAD_ITS ---
PROCEDURE INFORMATION: Exam: XR Left Ribs with PA Chest Exam date and time: 04/11/2024 10:02 PM Age: 28 years old Clinical indication: Other: Tree fell on shoulder blade/back TECHNIQUE: Imaging protocol: Radiologic exam of the left ribs with PA chest. Views: 3 views COMPARISON: CR XR CHEST 2V PA LATERAL 02/26/2022 5:51 PM FINDINGS: Lungs: Unremarkable. No consolidation. Pleural spaces: Unremarkable. No pleural effusion. No pneumothorax. Heart/Mediastinum: Unremarkable. No cardiomegaly. Bones/joints: No acute rib fracture or deformity. IMPRESSION: No acute abnormality Dictated and Authenticated by: Brien Coelho MD. Ordering:PBRAD Flores MD
--- NOTE | 2024-04-11 22:58 | DI.VRAD_ITS ---
PROCEDURE INFORMATION: Exam: XR Left Scapula Exam date and time: 04/11/2024 10:04 PM Age: 28 years old Clinical indication: Other: Tree fell on shoulder blade/back TECHNIQUE: Imaging protocol: Radiologic exam of the left scapula. Complete exam. COMPARISON: CR XR RIBS LT PA CHEST 3V 04/11/2024 10:02 PM FINDINGS: Bones/joints: Osseous alignment is normal. No acute fracture. No significant arthritic change Soft tissues: Normal. IMPRESSION: Negative left scapula Dictated and Authenticated by: Brien Coelho MD. Ordering:BRETT Flores MD
== END 2024-04-11 23:10 | disposition home or self-care (01) ==
PROVIDERS: Emergency Provider Emergency Medicine; PCP Nurse Practitioner Family
DX: S40.012A Contusion of left shoulder, initial encounter (principal); W18.39XA Other fall on same level, initial encounter; Y92.89 Other specified places as the place of occurrence of the external cause; Y99.0 Civilian activity done for income or pay; Z87.891 Personal history of nicotine dependence
CPT/HCPCS: 71101; 99283; 73010; J1885

== ENCOUNTER 2024-12-07 12:18 | Emergency (ER) | payer BC, SELFPAY ==
[2024-12-07 12:22] VITALS: BP 144/92; PULSE 120; RESP 20; TEMP 36.9; O2SAT 96
[2024-12-07 12:24] VITALS: BP 144/92; PULSE 120; RESP 20; TEMP 36.9; O2SAT 96
--- NOTE | 2024-12-09 08:14 | NUR.NOTE ---
Access chart to reconcile EKG orders with EKG's in [facility]. Order cancelled due to no EKG in [facility]. Nursing Note:
== END 2024-12-07 21:13 | disposition home or self-care (01) ==
PROVIDERS: Emergency Provider Emergency Medicine; PCP Nurse Practitioner Family
DX: R11.2 Nausea with vomiting, unspecified (principal)
CPT/HCPCS: 80053; 99283; 83735; 85025

== ENCOUNTER 2024-12-07 19:04 | Emergency (ER) | payer BC, SELFPAY ==
[2024-12-07] VITALS (11 sets, daily range): BP systolic 120–129; BP diastolic 71–88; PULSE 83–118; RESP 20; TEMP 36.8; O2SAT 95–97
--- NOTE | 2024-12-07 19:16 | ED.GENADUL_ITS ---
Discharge Plan Disposition Patient Disposition: Home Condition: Stable Discharge Details Clinical Impression: N&V (nausea and vomiting) Primary Care Provider: Meli Souza ED Provider: Zachary Jacobson Home Meds and New Rx's Prescriptions: Continued acetaminophen 325 mg capsule 650 mg PO ONCE PRN Discontinued prochlorperazine maleate [Compazine] 10 mg tablet 10 mg PO TID PRNQty: 10 0RF Discharge Instructions Additional Instructions: Try to drink small amounts of liquids to stay hydrated. If your stomach symptoms in a few days follow-up with your primary care provider or express care. If you feel more ill or have persistent vomiting despite the nausea medication return to the emergency department for reevaluation HPI General Mode of arrival: ambulatory . Date/Time Provider Initiated Documentation: 12/07/24 19:09 . Limitations to Documentation: no limitations . Information obtained by: patient . History of Present Illness 29 year old M presents to the emergency department with the chief complaint of n/v, described as moderate, Quality is described as aching, and is localized to the abdomen. Patient reports no radiation. Patient started experiencing this day(s) (2) and it has been constant. No relieving factors improve symptom(s), No exacerbating factors reported . Patient notes no other symptoms.. Patient did receive the following treatments prior to arrival, none Related Data Home Medications ?Medication ?Instructions ?Recorded ?Confirmed acetaminophen 325 mg capsule 650 mg PO ONCE PRN 04/11/24 12/07/24 Allergies Allergy/AdvReac Type Severity Reaction Status Date / Time amoxicillin Allergy Skin Rash Unverified 12/07/24 19:08 Penicillins Allergy Skin Rash Unverified 12/07/24 19:08 General Stated Complaint: Abd Prob RENEE: 3 Review of Systems All systems reviewed & are unremarkable except as noted in HPI and below Constitutional Constitutional: Denies chills, Denies fever(s) and Denies weakness Cardiovascular Cardiovascular: Denies chest pain and Denies dyspnea Respiratory Respiratory: Denies cough and Denies dyspnea Gastrointestinal Gastrointestinal: Reports abdominal pain, Reports nausea and Reports vomiting Musculoskeletal Musculoskeletal: Denies joint swelling Neurologic Neurologic: Denies weakness Exam Const General: no acute distress Orientation: alert HENMT Head: normal to inspection Ears: external ears normal General nose exam: external nose normal Mouth: moist mucous membranes Eyes General: appearance normal, both eyes and all related structures Neck Neck: normal visual inspection Resp Effort & Inspection: normal respiratory effort and able to speak in complete sentences Cardio Rate: regular rate GI Palpation: soft and nontender Skin General skin exam: no rashes or lesions noted Neuro General: patient alert and patient oriented x3 Extrem General: normal to inspection Psych Mental Status: mental status grossly normal Course Vital Signs Vital signs: Vital Signs Temperature 36.8 C 12/07/24 19:07 Pulse 118 H 12/07/24 19:07 Respiratory Rate 20 12/07/24 19:07 Blood Pressure 121/88 12/07/24 19:07 Pulse Oximetry 95 12/07/24 19:07 Temperature 36.8 C 12/07/24 19:09 Pulse 118 H 12/07/24 19:09 Respiratory Rate 20 12/07/24 19:09 Blood Pressure 121/88 12/07/24 19:09 Blood Pressure Position Sitting 12/07/24 19:09 Pulse Oximetry 95 12/07/24 19:09 Oxygen Delivery Method Room Air 12/07/24 19:09 Oxygen Flow Rate 0 12/07/24 19:09 Medical Decision Making 29-year-old male who denies any significant past medical history though states he has intermittent episodes of nausea vomiting but has not been in over a year comes in with several days of nausea vomiting. Denies any fevers, chest pain, difficulty breathing, diarrhea. He says the vomiting is epigastric pain but when he is not vomiting he has no pain. He is stable on arrival. His abdomen is soft and nondistended, and has no tenderness on exam. I suspect food illness versus gastroenteritis versus cyclic vomiting syndrome. Will treat her symptoms with IV fluids and droperidol and check a CBC and CMP and lipase. blood work shows chronically elevated white count along with hemoglobin hematocrit. He is sleeping on reassessment and awakens easily to voice and feels significantly better and requesting discharge. He still has no abdominal tenderness so I do not feel any imaging of the abdomen is indicated. He will follow-up with his PCP if not improving and return precautions given Differential Diagnosis Differential Diagnosis: Gastroenteritis, food illness Lab Data Lab results reviewed: Yes I reviewed the patient's lab results. Quality:SDOH Health Related Social Needs: No Data to Display [facility] All Active Problems (Updated 12/07/24 @ 20:55 by Zachary Jacobson MD) N&V (nausea and vomiting) (Acute) Hypokalemia (Acute) Discharge planning issues (Acute) Leukocytosis (Acute) Medical History Abscess of right arm Alcohol use Cannabinoid hyperemesis syndrome Marijuana dependence Surgical History No significant past surgical history Social History Smoking/Tobacco Use Status: Former Tobacco Use Smoking risk assessment performed?: Yes Alcohol Intake: current Alcohol Intake frequency: 0-2 drinks per day Alcohol type: beer Drug use: Never Substance use type: does not use Details: Reports not currently using marijuana. Do you feel safe at home: Yes Do you feel safe in your relationship?: Yes
[2024-12-07] MEDS: Normal Saline 1,000 ML 1000 ML IV (19:30)
[2024-12-07] MEDS: Droperidol 5 MG/2 ML VIAL 2.5 MG IVP (19:34)
[2024-12-07 19:43] LABS: Abs Immature Grans 0.09 10^3/uL (0.0-0.06); Absolute Lymphocyte Count 1.83 10^3/uL (1.2-3.4); Basophils % 0.2 %; Eosinophils % 0.2 %; Immature Grans % 0.4 %; Lymphocytes % 9.1 %; MCH 30.3 pg (27.0-33.0); MCV 89 fL (80-95); MPV 8.8 fL (8.0-11.0); Monocytes % 9.1 %; Platelet Count 378 10^3/uL (130-400); RBC 6.54 10^6/uL (4.36-5.78); RDW 13.4 % (11.8-14.1); RDW-SD 43.5 fL
[2024-12-07 19:46] LABS: Absolute Basophil Count 0.04 10^3/uL (0.0-0.2); Absolute Eosinophil Count 0.04 10^3/uL (0.0-0.7); Absolute Monocyte Count 1.83 10^3/uL (0.1-0.8); Absolute Neutrophil Count 16.28 10^3/uL (1.2-6.7)
[2024-12-07 20:01] LABS: ALT 32 U/L (16-63); AST 23 U/L (15-37); Albumin 4.9 g/dL (3.4-5.0); Alkaline Phosphatase 107 U/L (46-116); BUN 51 mg/dL (7-18); CREATININE 1.5 mg/dL (0.70-1.30); Calcium 10.3 mg/dL (8.5-10.1); Chloride 95 mmol/L (98-107); Estimated GFR 64.23 (mL/min/1.73m2); Glucose 144 mg/dL (74-106); Lipase 24 U/L (<78); Magnesium 2.7 mg/dL; Potassium 4.2 mmol/L (3.5-5.1); Sodium 135 mmol/L (136-145); Total Protein 9.5 g/dL (6.4-8.2)
[2024-12-07 20:02] LABS: Diff Comment Agrees w/ Instrument; HCT 58.2 % (40.0-50.0); HGB 19.8 g/dL (13.5-17.5); RBC Morphology Normal
[2024-12-07] MEDS: Ondansetron O.D.T. 4 MG TABEF, 3 TABS/BTL PO (21:08)
== END 2024-12-07 21:18 | disposition home or self-care (01) ==
PROVIDERS: Emergency Provider Emergency Medicine; PCP Nurse Practitioner Family
DX: R11.2 Nausea with vomiting, unspecified (principal)
CPT/HCPCS: 80053; 83690; 99283; 83735; 85025; J1790

== ENCOUNTER 2025-02-24 08:39 | Observation (INO) | payer BC, SELFPAY ==
[2025-02-24] VITALS (16 sets, daily range): BP systolic 125–182; BP diastolic 72–99; PULSE 68–118; RESP 10–20; TEMP 37.1–37.6; O2SAT 93–99
[2025-02-24] MEDS: Normal Saline 1,000 ML 1000 ML IV (09:26)
[2025-02-24] MEDS: Droperidol 5 MG/2 ML VIAL 2.5 MG IVP (09:27)
[2025-02-24 09:28] LABS: Abs Immature Grans 0.09 10^3/uL (0.0-0.06); Absolute Monocyte Count 1.91 10^3/uL (0.1-0.8); Basophils % 0.6 %; Eosinophils % 0.1 %; Immature Grans % 0.5 %; Lymphocytes % 7.6 %; MCH 30.7 pg (27.0-33.0); MCHC 36.2 % (32.0-36.0); MCV 85 fL (80-95); Monocytes % 10.2 %; Platelet Count 431 10^3/uL (130-400); RBC 6.84 10^6/uL (4.36-5.78); RDW 12.7 % (11.8-14.1); RDW-SD 38.9 fL; WBC 18.75 10^3/uL (4.4-10.8)
--- NOTE | 2025-02-24 09:42 | W.ED.GENAD ---
Discharge Plan Disposition Patient Disposition: Admit to [facility] Discharge Details Clinical Impression: Hypokalemia, Dehydration, ALDAIR (acute kidney injury) Admit Date/Time: 02/24/25 11:30 Admit Provider: Tu Clemens Attending Provider: Tu Clemens Primary Care Provider: Meli Souza ED Provider: Adrianna Beebe Discharge Data Discharge Date/Time-TO BE ENTERED AT DEPARTURE: 02/24/25 12:09 HPI <Adrianna Garsia - Last Filed: 02/24/25 16:36> General Date/Time Provider Initiated Documentation: 02/24/25 08:46. HPI Narrative: Adán is a 29-year-old male who presents to the emergency department today for evaluation of persistent vomiting since Thursday (4 days ago), is concerned about dehydration. He has a history of cyclic vomiting but is uncertain if this episode is similar. He tried an antiemetic without good improvement of symptoms. He has not been able to hold down any p.o. food since onset. Having some dizziness with position change for the last 2 days. Did not no fever, headaches, chest pain, difficulty breathing, abdominal pain, or change in urine output (urinated a couple hours ago, says it was not abnormal) no recent recent alcohol marijuana use (last use a week ago). No other drug use or history of abdominal surgeries. Last urination was a few hours ago, color unobserved. Last bowel movement was Thursday, not sure if it was firm or soft. Denies significant PMH; born with SVT, no recent cardiac issues. Related Data Home Medications ?Medication ?Instructions ?Recorded ?Confirmed acetaminophen 325 mg capsule 650 mg PO ONCE PRN 04/11/24 02/24/25 ondansetron 4 mg disintegrating 4 mg PO Q6H PRN #20 tabs 02/25/25 tablet potassium chloride 20 mEq 20 meq PO BID #60 tabs 02/25/25 tablet,extended release Previous Rx's ?Medication ?Instructions ?Recorded ondansetron 4 mg disintegrating 4 mg PO Q6H PRN #20 tabs 02/25/25 tablet potassium chloride 20 mEq 20 meq PO BID #60 tabs 02/25/25 tablet,extended release Allergies Allergy/AdvReac Type Severity Reaction Status Date / Time amoxicillin Allergy Skin Rash Unverified 02/24/25 08:50 Penicillins Allergy Skin Rash Unverified 02/24/25 08:50 General Stated Complaint: Nausea/Vomit/Diar RENEE: 3 Exam <Adrianna Edwards Filed: 02/24/25 16:36> Narrative Exam Narrative: General Appearance: Patient appears pale and tired Vital signs: Tachycardia present. HEENT: Dry mucous membranes. Respiratory: Clear lung sounds, easy work of breathing. Cardiovascular: Normal heart sounds, tachycardia present. Gastrointestinal: Soft abdomen, tender in the epigastrium, normal active bowel sounds. Back, Musculoskeletal: No CVA tenderness. Skin: Warm and dry, no rash. Psychiatric: Normal. Course <Adrianna Edwards Filed: 02/24/25 16:36> Vital Signs Vital signs: Vital Signs Pulse 115 H 02/24/25 08:46 Respiratory Rate 19 02/24/25 08:46 Blood Pressure 125/85 02/24/25 08:46 Pulse Oximetry 95 02/24/25 08:46 Pulse 114 H 02/24/25 09:40 Respiratory Rate 19 02/24/25 08:50 Blood Pressure 166/99 H 02/24/25 09:40 Blood Pressure Mean 114 02/24/25 09:40 Blood Pressure Position Sitting 02/24/25 08:50 Pulse Oximetry 97 02/24/25 09:40 Oxygen Delivery Method Room Air 02/24/25 08:50 Oxygen Flow Rate 0 02/24/25 08:50 Pain Level 0 02/24/25 08:50 Medical Decision Making <Adrianna Edwards Filed: 02/24/25 16:36> Initial Assessment: Adán is a 29-year-old male presenting with persistent vomiting since Thursday and a history of cyclic vomiting. He reports dizziness and near syncope, especially after showering, starting two days ago post-vomiting onset. Heavy breathing associated with dehydration. DDx includes but is not limited to: Dehydration, cannabinoid hyperemesis, electrolyte imbalance. No red flags concerning for acute surgical abdominal process as patient has benign abdominal exam. ED Course: - Blood work ordered - IV droperidol, IV fluids given with full improvement of nausea and abdominal discomfort. Patient reports he is feeling significantly better. Clinical Impression: Cyclic vomiting with associated significant hypokalemia, potassium 2.6, as well as hemoconcentration with H&H and ALDAIR with creatinine 3.5 and BUN of 100. EKG performed, shows sinus tachycardia with prolonged QTc Patient to be admitted for observation/electrolyte correction and rehydration. MDM Components Evaluation: - Number of Differential Diagnoses or Management Options: Vomiting, Dehydration - Amount and Complexity of Data Reviewed: Blood work - Risk of Complication and Morbidity or Mortality: Risk of dehydration and associated complications such as dizziness and syncope Patient consented to the use of BRITTNI Quality:[facility] Health Related Social Needs: No Data to Display <Alejo Reynolds MD - Last Filed: 03/07/25 22:40> Date: 02/24/25 Time: 10:34 Note: Patient was seen and case discussed with TEXTILE SLITTING MACHINE OPERATOR Amy Garsia. Patient was significant hypokalemia and dehydration from vomiting. EKG was reviewed and interpreted by me: Please see report, sinus tachycardia 113 bpm, ST depression noted inferior lateral. QTc 540 this is prolonged. Plan to continue IV fluids and correct hypokalemia. Continue cardiac monitoring. Recommended adding troponin to workup. Patient will require admission for ongoing treatment. [facility] <Adrianna Garsia - Last Filed: 02/24/25 16:36> All Active Problems (Updated 02/26/25 @ 00:02 by SHMUEL HANNAH) On deep vein thrombosis (DVT) prophylaxis (Acute) Dehydration (Acute) Intractable nausea and vomiting (Acute) ALDAIR (acute kidney injury) (Acute) Hypokalemia (Acute) Discharge planning issues (Acute) Leukocytosis (Acute) Medical History Abscess of right arm Alcohol use Cannabinoid hyperemesis syndrome Marijuana dependence Surgical History No significant past surgical history Social History Smoking/Tobacco Use Status: Former Tobacco Use Smoking risk assessment performed?: Yes Alcohol Intake: current Alcohol Intake frequency: holidays/special occasions only Alcohol type: beer Drug use: Never Substance use type: does not use Details: Reports not currently using marijuana. Housing: apartment Do you feel safe at home: Yes Do you feel safe in your relationship?: Yes
--- NOTE | 2025-02-24 09:45 | RT.EKG_ITS ---
APPROVED REPORT Exam: Resting ECG Reason for Exam: hypokalemia Patient Location: E HR:113 bpm ECG Measurements Heart Rate 113 AXIS WI 111 P 84 QRSd 91 QRS 85 QT 394 T 36 QTc 540 Conclusion Sinus tachycardia...rate> 99 Right atrial enlargement...P>0.25mV 2 lds or<-0.24mV aVR/aVL ST depr, consider ischemia, inferior leads...ST <-0.10mV, II III aVF Prolonged QT interval...QTc >488mS
[2025-02-24 09:47] LABS: ALT 32 U/L (16-63); AST 26 U/L (15-37); Albumin 5.1 g/dL (3.4-5.0); Alkaline Phosphatase 125 U/L (46-116); Anion Gap 11.99999 mmol/L (3-11); Bilirubin, Total 1.3 mg/dL (0.2-1.0); CO2 > 45.0 mmol/L (21.0-32.0); CREATININE 3.5 mg/dL (0.70-1.30); Calcium 9.3 mg/dL (8.5-10.1); Chloride 74 mmol/L (98-107); Estimated GFR 23.24 (mL/min/1.73m2); Glucose 175 mg/dL (74-106); Lipase 47 U/L (<78); Magnesium 2.9 mg/dL (1.8-2.4); Sodium 131 mmol/L (136-145); Total Protein 9.9 g/dL (6.4-8.2)
[2025-02-24 09:48] LABS: BUN 100 mg/dL (7-18); Potassium 2.6 mmol/L (3.5-5.1)
[2025-02-24 10:07] LABS: Absolute Basophil Count 0.11 10^3/uL (0.0-0.2); Absolute Eosinophil Count 0.02 10^3/uL (0.0-0.7); Absolute Lymphocyte Count 1.43 10^3/uL (1.2-3.4); Absolute Neutrophil Count 15.19 10^3/uL (1.2-6.7)
[2025-02-24] MEDS: Potassium Bicarbonate/Cit AC 25 MEQ TABLET.EFF PO (10:08)
[2025-02-24] MEDS: POTASSIUM CHLORIDE 20 MEQ/100 ML BAG 50 MEQ IV_INF ×3 (10:08→22:53)
[2025-02-24 10:09] LABS: Diff Comment Diff Reviewed; RBC Morphology Normal
[2025-02-24] MEDS: Lactated Ringers 1,000 ML 1000 ML IV (10:47)
--- NOTE | 2025-02-24 11:14 | W.PM.HP.N ---
Date of service: 02/24/25 Time of Service: 11:14 Assessment and Plan Assessment and plan (1) ALDAIR (acute kidney injury): Status: Acute Assessment and plan: In the setting of point 2 starting thursday, reported not using TCH , USD pending Cr 3.5 from 1.5 during similar presentation in 11/2024 BUN 100 from 51 in 11/2024 LR at 125 cc/hr BMP at 1800 (2) Dehydration: Status: Acute Assessment and plan: As above (3) Intractable nausea and vomiting: Status: Acute Assessment and plan: Compazine PRN Tigan PRN (4) On deep vein thrombosis (DVT) prophylaxis: Status: Acute Assessment and plan: LMWH discussed with Dr. Clemens History of Present Illness History of Present Illness Chief Complaint: nausea vomiting Narrative: This 29-year-old male who presented to the emergency department today for evaluation of persistent vomiting since Thursday . Positive history of cyclic vomiting and THC use but is uncertain if this episode is similar; no improvement with antiemetic and unable to tolerate enteral intake. Workup in the ED was positive for ALDAIR with Cr 3.5, K 2.6 - supplemented, hemoconcentration with H&H 21 & 58, WBC 18. Thepatient was admitted to the hospitalist service on the medical surgical floor for ALDAIR dehydration. As per ED provider the patient is agreable to stay the night. Full code status confirmed. Denies fever, headaches, chest pain, difficulty breathing, abdominal pain, or change in urine output, no recent recent alcohol marijuana use . USD positive for THC. Review of Systems All systems reviewed & are unremarkable except as noted in HPI and below PFSH All Active Problems (Updated 02/24/25 @ 16:36 by Adrianna Garsia) On deep vein thrombosis (DVT) prophylaxis (Acute) Dehydration (Acute) Intractable nausea and vomiting (Acute) ALDAIR (acute kidney injury) (Acute) Hypokalemia (Acute) Discharge planning issues (Acute) Leukocytosis (Acute) Medical History Abscess of right arm Alcohol use Cannabinoid hyperemesis syndrome Marijuana dependence Surgical History No significant past surgical history Social History Smoking/Tobacco Use Status: Former Tobacco Use Smoking risk assessment performed?: Yes Alcohol Intake: current Alcohol Intake frequency: holidays/special occasions only Alcohol type: beer Drug use: Never Substance use type: does not use Details: Reports not currently using marijuana. Housing: apartment Do you feel safe at home: Yes Do you feel safe in your relationship?: Yes Meds Allergies and Home Medications Allergies Allergy/AdvReac Type Severity Reaction Status Date / Time amoxicillin Allergy Skin Rash Unverified 02/24/25 08:50 Penicillins Allergy Skin Rash Unverified 02/24/25 08:50 Home Medications ?Medication ?Instructions ?Recorded ?Confirmed ?Type acetaminophen 325 mg capsule 650 mg PO ONCE PRN 04/11/24 02/24/25 History Exam Narrative Exam Narrative: Neuro:alert and oriented X4 . No neurological focal deficit, PERRLA Resp: unlabored breathing, clear lung bilaterally Cardio: regular rhythm, S1, S2, no murmur, capillary refill<3 sec., bilateral radial and dorsalis pedis pulses are positive, palpable GI: Abdomen is not distended, soft and non tender, bowel sounds are present\ Extremities: strength 5/5 to bilateral lower and upper extremities Psych: RASS 0, congruent mood and normal affect. Results Labs 02/24/25 11:58 02/24/25 11:58 Labs: Laboratory Results - last 24 hr 02/24/25 09:15 WBC 18.75 H RBC 6.84 H Hgb 21.0 H* Hct 58.0 H* MCV 85 MCH 30.7 MCHC 36.2 H RDW 12.7 Plt Count 431 H MPV 9.0 Immature Gran % 0.5 Neutrophils % 81.0 Lymphocytes % 7.6 Monocytes % 10.2 Eosinophils % 0.1 Basophils % 0.6 Nucleated RBC % 0.0 Absolute Neutrophils 15.19 H Absolute Lymphocytes 1.43 Absolute Monocytes 1.91 H Absolute Eosinophils 0.02 Absolute Basophils 0.11 RBC Morphology Normal Sodium 131 L Potassium 2.6 L* Chloride 74 L Carbon Dioxide > 45.0 H Anion Gap 11.67569 H BUN 100 H* Creatinine 3.5 H Est GFR (CKD-EPI 2020) 23.24 Glucose 175 H Calcium 9.3 Magnesium 2.9 H Total Bilirubin 1.3 H AST 26 ALT 32 Alkaline Phosphatase 125 H Total Protein 9.9 H Albumin 5.1 H Lipase 47 Last Vital Signs Pulse 104 H 02/24/25 10:47 Resp 12 02/24/25 10:47 BP 146/72 H 02/24/25 10:47 Pulse Ox 97 02/24/25 10:47 Time Spent Time spent with Patient: >75 minutes Time was spent: preparing to see the patient(eg.review tests), obtaining and/or reviewing separately otained hiistory, ordering medications,tests, procedures, referring, communicating with other health healthcare financial analyst, indepentently interpreting results, counseling the patient and care coordination
[2025-02-24 11:18] LABS: Bilirubin Negative (Negative); Blood Trace-intact (Negative); Clarity Clear (Clear); Glucose Negative (Negative); Ketones Negative (Negative); Leukocyte Esterase Negative (Negative); Nitrite Negative (Negative); Specific Gravity >= 1.030 (1.005-1.025); Urobilinogen 0.2 mg/dL (Up to 0.2)
[2025-02-24 11:30] LABS: Bacteria Negative HPF (Negative); Crystals Few Amorphous HPF (Negative); Epithelial Cells Rare HPF (Negative); Mucus Trace (Negative); RBC 0-2 HPF (0-2); WBC Negative HPF (0-5)
[2025-02-24 11:31] LABS: C & S Indicated? No; Casts 20-50 Hyaline LPF (Negative)
[2025-02-24] MEDS: Pantoprazole 40 MG VIAL IVP (11:46)
[2025-02-24 11:55] LABS: *AMPHETAMINES SCREEN URINE Negative (Negative); *BARBITURATES SCREEN URINE Negative (Negative); *BENZODIAZEPINES SCREEN URINE Negative (Negative); Cannabinoids THC Positive (Negative); Cocaine Screen,Urine Negative (Negative); METHADONE URINE SCREEN Negative (Negative); OPIATES URINE SCREEN Negative (Negative)
[2025-02-24 11:57] LABS: Tricyclic Antidepressants Negative (Negative)
--- NOTE | 2025-02-24 12:00 | RT.EKG_ITS ---
APPROVED REPORT Exam: Resting ECG Reason for Exam: rpt after potassium Patient Location: E HR:90 bpm ECG Measurements Heart Rate 90 AXIS IN 113 P 75 QRSd 84 QRS 93 QT 445 T -21 QTc 544 Conclusion Sinus rhythm...normal P axis, V-rate 60- 99 Nonspecific repol abnormality, inferior leads...ST dep, T neg, II III aVF Prolonged QT interval...QTc >488mS
[2025-02-24 12:03] LABS: HCT 50.2 % (40.0-50.0); HGB 17.5 g/dL (13.5-17.5); MCH 30.3 pg (27.0-33.0); MCHC 34.9 % (32.0-36.0); MCV 87 fL (80-95); MPV 8.9 fL (8.0-11.0); Platelet Count 317 10^3/uL (130-400); RBC 5.78 10^6/uL (4.36-5.78); RDW 12.6 % (11.8-14.1); RDW-SD 40.1 fL; WBC 16.64 10^3/uL (4.4-10.8)
--- NOTE | 2025-02-24 12:04 | W.PC.ACHO ---
Registration Status: Primary Language: Preferred Language: ED Information & Data Chief Complaint Nausea/Vomit/Diar 02/24/25 09:46 Triage Note Pt reports that he has been 02/24/25 08:46 vomiting since Thursday, unable to keep anything down and is now having muscle cramps Medical / Surgical History (Last Reviewed 12/16/22 @ 08:10 by Zo Snyder NP) Abscess of right arm Cannabinoid hyperemesis syndrome Alcohol use Marijuana dependence (Last Reviewed 12/16/22 @ 08:10 by Zo Snyder NP) No significant past surgical history Most Recent Vital Signs Pulse 118 H 02/24/25 11:46 Pulse 116 H 02/24/25 11:46 Respiratory Rate 20 02/24/25 11:46 Blood Pressure 167/89 H 02/24/25 11:46 Blood Pressure Mean 106 02/24/25 11:46 Blood Pressure Position Sitting 02/24/25 08:50 Pulse Oximetry 95 02/24/25 11:46 Oxygen Delivery Method Room Air 02/24/25 08:50 Oxygen Flow Rate 0 02/24/25 08:50 Pain Level 0 02/24/25 08:50 Allergies amoxicillin Allergy (Unverified 02/24/25 08:50) Skin Rash Penicillins Allergy (Unverified 02/24/25 08:50) Skin Rash Precautions Isolation Standard precaution 02/24/25 08:50 IV IV Catheter Gauge [Left 18 Antecubital] Diagnostics 02/24/25 02/24/25 02/24/25 Range/Units 11:58 11:10 09:15 WBC Pending 18.75 H (4.4-10.8) 10^3/uL RBC Pending 6.84 H (4.36-5.78) 10^6/uL Hgb Pending 21.0 H* (13.5-17.5) g/dL Hct Pending 58.0 H* (40.0-50.0) % MCV Pending 85 (80-95) fL MCH Pending 30.7 (27.0-33.0) pg MCHC Pending 36.2 H (32.0-36.0) % RDW Pending 12.7 (11.8-14.1) % Plt Count Pending 431 H (130-400) 10^3/uL MPV Pending 9.0 (8.0-11.0) fL Immature Gran % 0.5 % Neutrophils % 81.0 % Lymphocytes % 7.6 % Monocytes % 10.2 % Eosinophils % 0.1 % Basophils % 0.6 % Nucleated RBC % 0.0 (0.0-0.3) % Absolute Neutrophils 15.19 H (1.2-6.7) 10^3/uL Absolute Lymphocytes 1.43 (1.2-3.4) 10^3/uL Absolute Monocytes 1.91 H (0.1-0.8) 10^3/uL Absolute Eosinophils 0.02 (0.0-0.7) 10^3/uL Absolute Basophils 0.11 (0.0-0.2) 10^3/uL RBC Morphology Normal Sodium Pending 131 L (136-145) mmol/L Potassium Pending 2.6 L* (3.5-5.1) mmol/L Chloride Pending 74 L (98-107) mmol/L Carbon Dioxide Pending > 45.0 H (21.0-32.0) mmol/L Anion Gap Pending 11.96480 H (3-11) mmol/L BUN Pending 100 H* (7-18) mg/dL Creatinine Pending 3.5 H (0.70-1.30) mg/dL Est GFR (CKD-EPI 2020) Pending 23.24 (mL/min/1.73m2) Glucose Pending 175 H (74-106) mg/dL Calcium Pending 9.3 (8.5-10.1) mg/dL Magnesium Pending 2.9 H (1.8-2.4) mg/dL Total Bilirubin Pending 1.3 H (0.2-1.0) mg/dL AST Pending 26 (15-37) U/L ALT Pending 32 (16-63) U/L Alkaline Phosphatase Pending 125 H (46-116) U/L Total Protein Pending 9.9 H (6.4-8.2) g/dL Albumin Pending 5.1 H (3.4-5.0) g/dL Lipase 47 (<78) U/L Urine Color Yellow (Yellow) Urine Clarity Clear (Clear) Urine pH 6.0 (5-8) Ur Specific Hugo >= 1.030 H (1.005-1.025) Urine Protein >=300 H (Neg-Trace) mg/dL Urine Ketones Negative (Negative) mg/dL Urine Blood Trace-intact H (Negative) Urine Nitrite Negative (Negative) Urine Bilirubin Negative (Negative) Urine Urobilinogen 0.2 (Up to 0.2) mg/dL Ur Leukocyte Esterase Negative (Negative) Urine RBC 0-2 (0-2) HPF Urine WBC Negative (0-5) HPF Ur Epithelial Cells Rare (Negative) HPF Urine Crystals Few Amorphous (Negative) HPF Urine Bacteria Negative (Negative) HPF Urine Casts 20-50 Hyaline (Negative) LPF Urine Mucus Trace (Negative) Ur Culture Indicated? No Urine Glucose Negative (Negative) mg/dL Urine Opiates Screen Negative (Negative) Urine Methadone Screen Negative (Negative) Ur Barbiturates Screen Negative (Negative) Ur Tricyclics Screen Negative (Negative) Ur Amphetamines Screen Negative (Negative) U Benzodiazepines Scrn Negative (Negative) Urine Cocaine Screen Negative (Negative) Ur THC Screen Positive A (Negative) Intake and Output - 24 Hour Total 02/24/25 08:39 thru 02/24/25 08:46 Weight 52.163 kg Falls Risk Assessment History of Falls No History 02/24/25 09:04 Contributing Factors No Factors 02/24/25 09:04 Ambulatory Aids Independent 02/24/25 09:04 Tubes/Lines None 02/24/25 09:04 Gait Evaluation No gait disturbance 02/24/25 09:04 Cognition No cognitive impairment 02/24/25 09:04 Fall Total Score 0 02/24/25 09:04 Level of Risk Standard/Low Risk 02/24/25 09:04 Problems (Last Reviewed 12/16/22 @ 08:10 by Zo Snyder NP) On deep vein thrombosis (DVT) prophylaxis (Acute) Dehydration (Acute) Intractable nausea and vomiting (Acute) ALDAIR (acute kidney injury) (Acute) v v v v v v v v v Sending and/or Receiving Nurses: Please use comment section below to note any information pertinent to the patient hand-off not included above. Information / Comments: pt arrives to rm [id number] from Ed Report received from: OLU Sharma
[2025-02-24 12:19] LABS: ALT 23 U/L (16-63); AST 21 U/L (15-37); Albumin 3.7 g/dL (3.4-5.0); Alkaline Phosphatase 94 U/L (46-116); Anion Gap 3.7 mmol/L (3-11); Bilirubin, Total 0.9 mg/dL (0.2-1.0); CO2 44.3 mmol/L (21.0-32.0); CREATININE 2.9 mg/dL (0.70-1.30); Calcium 7.7 mg/dL (8.5-10.1); Chloride 83 mmol/L (98-107); Estimated GFR 29.12 (mL/min/1.73m2); Glucose 141 mg/dL (74-106); Magnesium 2.4 mg/dL (1.8-2.4); Potassium 3.2 mmol/L (3.5-5.1); Sodium 131 mmol/L (136-145); Total Protein 7.4 g/dL (6.4-8.2)
[2025-02-24 12:20] LABS: BUN 93 mg/dL (7-18)
[2025-02-24] MEDS: Lactated Ringers 1,000 ML 125 ML IV (13:13)
[2025-02-24] MEDS: Prochlorperazine 10 MG/2 ML VIAL IVP ×3 (13:23→23:36)
--- NOTE | 2025-02-24 15:05 | PHA.REVIEW2 ---
Pharmacy Admission Review Admission Clinical Review Admission Pharmacy Review: On deep vein thrombosis (DVT) prophylaxis (Acute) Dehydration (Acute) Intractable nausea and vomiting (Acute) ALDAIR (acute kidney injury) (Acute) amoxicillin Allergy (Unverified 02/24/25 08:50) Skin Rash Penicillins Allergy (Unverified 02/24/25 08:50) Skin Rash Resuscitation Status Full Code Height 5 ft 6 in Weight 52.163 kg Comments Comments/Follow Ups: Watch for addition of any QTc prolonging meds (QTc 544 - current meds okay) Pharmacy Admission Review Renal Dosing Renal Dosing: BUN 93 mg/dL (7-18) H* 02/24/25 11:58 Creatinine 2.9 mg/dL (0.70-1.30) H 02/24/25 11:58 Medications needing adjustments: Reviewed (CrCl 27.73 mL/min) List of meds needing interventions: Current medications are okay Anticoagulation Anticoagulation: Hgb 17.5 g/dL (13.5-17.5) D 02/24/25 11:58 Hct 50.2 % (40.0-50.0) H 02/24/25 11:58 Plt Count 317 10^3/uL (130-400) 02/24/25 11:58 Creatinine 2.9 mg/dL (0.70-1.30) H 02/24/25 11:58 DVT Prophylaxis: Intervened (Provider initially ordered enoxaparin 40mg daily, recommended change to 30mg due to CrCl < 30) Medications: Enoxaparin (30mg daily) Relevant Labs Relevant Labs: Sodium 131 mmol/L (136-145) L 02/24/25 11:58 Potassium 3.2 mmol/L (3.5-5.1) L 02/24/25 11:58 Chloride 83 mmol/L (98-107) L 02/24/25 11:58 Magnesium 2.4 mg/dL (1.8-2.4) 02/24/25 11:58 Electrolytes, C-Reactive P, ESR: Reviewed (K increased from 2.6 - repeat labs pending for 1800, WBC 16.64) Cardiac Review Cardiac Review: Blood Pressure : Heart Rate 142/85 : 95 1505 Blood Pressure : Heart Rate 144/92 : 101 1234 Blood Pressure : Heart Rate 144/92 : 101 1220 Blood Pressure : Heart Rate 167/89 : 118 1146 Blood Pressure : Heart Rate 157/97 : 98 1131 Blood Pressure : Heart Rate 182/92 : 94 1116 Blood Pressure : Heart Rate 146/72 : 104 1047 Blood Pressure : Heart Rate 155/90 : 106 1031 Blood Pressure : Heart Rate 152/87 : 111 1016 Blood Pressure : Heart Rate 152/94 : 109 1001 Blood Pressure : Heart Rate 166/99 : 114 0940 Blood Pressure : Heart Rate 125/85 : 115 0850 Blood Pressure : Heart Rate 125/85 : 115 0846 BP, HR, EF%: Reviewed QTc Review QTc: Reviewed (544 from 02/24/25) List meds needing interventions: Current medications are okay IV to PO Switch IV Medications: Reviewed (prochlorperazine) Home Meds Home Med List reviewed: Reviewed Relevent Home Meds Not ordered & why?: acetaminophen (PRN) Current Meds Current Medication Order Review: Intervened Comments: Changed IV ED access Comments Comments/Follow Ups: Watch for addition of any QTc prolonging meds (QTc 544 - current meds okay)
[2025-02-24 18:31] LABS: Anion Gap 4.5 mmol/L (3-11); BUN 79 mg/dL (7-18); CO2 41.5 mmol/L (21.0-32.0); CREATININE 2.6 mg/dL (0.70-1.30); Calcium 8.5 mg/dL (8.5-10.1); Chloride 87 mmol/L (98-107); Glucose 138 mg/dL (74-106); Sodium 133 mmol/L (136-145)
[2025-02-24 18:37] LABS: Potassium 2.9 mmol/L (3.5-5.1)
[2025-02-24] MEDS: Normal Saline Flush 10 ML SYR IVP ×2 (20:58→23:37)
[2025-02-25] MEDS: Lactated Ringers 1,000 ML 150 ML IV ×2 (01:55→10:59)
[2025-02-25 03:52] VITALS: BP 140/85; PULSE 84; RESP 18; TEMP 37; O2SAT 94
[2025-02-25] MEDS: Prochlorperazine 10 MG/2 ML VIAL IVP (04:02)
[2025-02-25 06:51] LABS: Abs Immature Grans 0.06 10^3/uL (0.0-0.06); Absolute Basophil Count 0.03 10^3/uL (0.0-0.2); Basophils % 0.2 %; Eosinophils % 0.1 %; HCT 48.2 % (40.0-50.0); HGB 16.9 g/dL (13.5-17.5); Immature Grans % 0.4 %; Lymphocytes % 14.2 %; MCH 30.8 pg (27.0-33.0); MCHC 35.1 % (32.0-36.0); MCV 88 fL (80-95); MPV 9.2 fL (8.0-11.0); Monocytes % 14.4 %; Neutrophils % 70.7 %; Platelet Count 290 10^3/uL (130-400); RBC 5.48 10^6/uL (4.36-5.78); RDW 12.5 % (11.8-14.1); RDW-SD 40.8 fL; WBC 15.25 10^3/uL (4.4-10.8)
[2025-02-25 06:53] LABS: Absolute Eosinophil Count 0.02 10^3/uL (0.0-0.7); Absolute Lymphocyte Count 2.17 10^3/uL (1.2-3.4); Absolute Neutrophil Count 10.78 10^3/uL (1.2-6.7)
[2025-02-25 07:03] LABS: Anion Gap 2.3 mmol/L (3-11); BUN 62 mg/dL (7-18); CO2 39.7 mmol/L (21.0-32.0); CREATININE 1.8 mg/dL (0.70-1.30); Calcium 8.6 mg/dL (8.5-10.1); Chloride 91 mmol/L (98-107); Estimated GFR 51.61 (mL/min/1.73m2); Glucose 126 mg/dL (74-106); Magnesium 2.9 mg/dL (1.8-2.4); Potassium 3.3 mmol/L (3.5-5.1); Sodium 133 mmol/L (136-145)
[2025-02-25 07:15] LABS: Diff Comment Agrees w/ Instrument; RBC Morphology Normal
--- NOTE | 2025-02-25 08:44 | INITIAL_ITS ---
Care Management Initial Assmt Advance Directives Advance Directives: Do you have an Advance Directive: N 12/04/20 11:38 AD On File at [facility]: N 12/04/20 11:38 Date Asked 02/24/25 02/24/25 08:42 AD Date Reviewed COLST On File at [facility] COLST Date Scanned Code Status Resuscitation Status Full Code Care Team Visit Care Team Role Provider Type Brii Otero NP NURSE PRACTITIONER Meli Souza Primary Care Provider NURSE PRACTITIONER Adrianna Garsia Emergency Provider NURSE PRACTITIONER Tu Clemens Admit Provider [facility] STAFF PHYSICIAN Attending Provider Social Determinants of Health Screening Social Determinants of health last assessed in clinic: 02/24/25 Will the Patient Participate in the Screening?: Yes Do you worry about having a steady place to live?: no Problems where you live: no known problems In the past 12 months, have you had to go without electric, gas, oil or water in your home?: no Has lack of transportation kept you from medical appointments or from doing things needed for daily living?: no Has anyone in your life made you feel unsafe or unsupported?: no How hard is it for you to pay for the very basics like food, housing, medical care, and heating? Would you say it is:: Not hard at all Do you want help finding or keeping work or a job?: I do not need or want help If for any reason you need help with day-to-day activities such as bathing, preparing meals, shopping, managing finances, etc., do you get the help you ne ed?: I don?t need any help How often do you feel lonely or isolated from those around you?: Never Do you speak a language other than Cambodian at home?: No Does the patient want assistance with any of the above?: No PFSH All Active Problems (Updated 02/24/25 @ 16:36 by Adrianna Garsia) On deep vein thrombosis (DVT) prophylaxis (Acute) Dehydration (Acute) Intractable nausea and vomiting (Acute) ALDAIR (acute kidney injury) (Acute) Hypokalemia (Acute) Discharge planning issues (Acute) Leukocytosis (Acute) Medical History Abscess of right arm Alcohol use Cannabinoid hyperemesis syndrome Marijuana dependence Surgical History No significant past surgical history Social History Smoking/Tobacco Use Status: Former Tobacco Use Smoking risk assessment performed?: Yes Alcohol Intake: current Alcohol Intake frequency: holidays/special occasions only Alcohol type: beer Drug use: Never Substance use type: does not use Details: Reports not currently using marijuana. Housing: apartment Do you feel safe at home: Yes Do you feel safe in your relationship?: Yes
[2025-02-25 09:24] VITALS: BP 157/87; PULSE 77; RESP 16; TEMP 36.1; O2SAT 95
[2025-02-25] MEDS: Droperidol 5 MG/2 ML VIAL 2.5 MG IVP (11:35)
--- NOTE | 2025-02-25 12:25 | DSE_ITS ---
Date of service: 02/25/25 Time of Service: 12:25 DS: Diagnosis Discharge Diagnosis (1) ALDAIR (acute kidney injury): Status: Acute (2) Dehydration: Status: Acute (3) Intractable nausea and vomiting: Status: Acute Discharge Plan Disposition Patient Disposition: Home Condition: Improving Discharge Details Reason For Visit: ALDAIR, dehydration, intractable nausea/ vomiting Admit Date/Time: 02/24/25 11:30 Admit Provider: Tu Clemens Attending Provider: Tu Clemens Primary Care Provider: Meli Souza Hospital Course Hospital Course: This is a 29-year-old male patient past medical history significant for intractable nausea and vomiting thought to be due to cannabinoid hyperemesis. Presents to the emergency department with an acute kidney injury from severe dehydration also found to have a potassium of 2.6. He received aggressive IV hydration, antiemetics, and electrolyte repletion and was admitted to the hospitalist services for further management and monitoring. He was with slow improvement in his symptoms but began tolerating oral intake. His potassium did improved to 3.3. He had no further nausea vomiting. Creatinine also improved to 1.8 from 4.1. He feels he is ready for discharge to home and is requesting a discharge. Hemodynamically he has been stable. He was provided with a supply of ondansetron to use for nausea and vomiting and potassium to take twice daily with meals. He was advised to have his blood work rechecked on Thursday, February 27 with a copy sent to his primary care provider for further recommendations. He is being discharged to home with no new services. discussed with DR Mazariegos [place] Meds and New Rx's Prescriptions: New potassium chloride 20 mEq tablet extended release 20 meq PO BID Qty: 60 0RF Rx Instructions: take with meals ondansetron 4 mg tablet,disintegrating 4 mg PO Q6H PRNQty: 20 0RF Continued acetaminophen 325 mg capsule 650 mg PO ONCE PRN Discharge Instructions Instructions: Hypokalemia, Acute kidney injury, Nausea and vomiting in adults Stand Alone Forms: Nursing Discharge Form Referrals: Meli Souza [Primary Care Provider] - (Please call the office on Thursday to set up a hospital follow up within 7-10 days) Activity:: Activity as Tolerated Equipment/Supplies:: No Equipment Needed Diet:: As Tolerated Discharge Orders Discharge Orders: Discharge Order (Routine); Ordered 02/25/25 Ordered By: Brii Otero Other Ambulatory Orders: Basic Metabolic Panel (Routine) Timeframe: [id number] Facility: [facility] - Location: Laboratory Outpatient - [place] Ordered By: Brii Otero Discharge Data Discharge Date/Time-TO BE ENTERED AT DEPARTURE: 02/25/25 12:58 DS: Summary Time Spent with Patient providing and/or coordinating discharge services: Less than 30 minutes Status at Discharge Functional status at discharge: independent ambulation Overall status at discharge: patient is back to baseline Mental Status: mental status grossly normal Speech and Movement: speech and movement normal Mood: congruent mood Affect: normal affect Quality:SDOH Health Related Social Needs: No Data to Display Exam Const General: cooperative, comfortable, no acute distress and frail appearing Nutritional Appearance: thin Orientation: alert, awake and oriented x3 HENMT Head: normal to inspection, normocephalic and atraumatic Resp Effort & Inspection: normal respiratory effort (even and unlabored) Cardio Jugular venous pressure: other Other: pink warm dry and well perfused Skin General skin exam: no rashes or lesions noted Neuro General: patient alert, patient awake, patient oriented x3 and moves all extremities Extrem General: normal to inspection and full ROM Psych Mental Status: mental status grossly normal Speech and Movement: speech and movement normal Mood: congruent mood Affect: normal affect Attitude: cooperative Thought Process: normal Thought Content: normal DS: Data Vitals/I&O Vitals and I&O: Vital Signs Temperature 36.1 C L 02/25/25 09:24 Temperature Source Temporal Artery Scan 02/25/25 09:24 Pulse 77 02/25/25 09:24 Pulse Rhythm Regular 02/24/25 12:34 Pulse 116 H 02/24/25 11:46 Respiratory Rate 16 02/25/25 09:24 Respiratory Effort Normal 02/24/25 12:34 Respiratory Depth Normal 02/24/25 12:34 Respiratory Pattern Normal 02/24/25 12:34 Blood Pressure 157/87 H 02/25/25 09:24 Blood Pressure Mean 110 02/25/25 09:24 Blood Pressure Position Sitting 02/24/25 08:50 Pulse Oximetry 95 02/25/25 09:24 Oxygen Delivery Method Room Air 02/25/25 09:24 Oxygen Flow Rate 0 02/25/25 09:24 Pain Level 0 02/25/25 09:24 Comment RN notified of bp 02/25/25 09:24 Intake & Output 02/24/25 02/25/25 02/25/25 23:59 11:59 23:59 Intake Total 2916.667 / 2916.667 1833.333 / 1833.333 Output Total 700 / 700 500 / 500 Balance 2216.667 / 2216.667 1333.333 / 1333.333 Intake: IV 2916.667 / 2916.667 1283.333 / 1283.333 Oral 550 / 550 Output: Urine 650 / 650 400 / 400 Emesis 50 / 50 100 / 100 Other: Urine Color Yellow Yellow Urine Appearance Clear Clear Urine Odor Normal Emesis Description Bile Bile Data Completed and Pending Labs on day of discharge: Labs from last 24 hours 02/25/25 02/24/25 05:53 17:55 WBC 15.25 H RBC 5.48 Hgb 16.9 Hct 48.2 MCV 88 MCH 30.8 MCHC 35.1 RDW 12.5 Plt Count 290 MPV 9.2 Immature Gran % 0.4 Neutrophils % 70.7 Lymphocytes % 14.2 Monocytes % 14.4 Eosinophils % 0.1 Basophils % 0.2 Nucleated RBC % 0.0 Absolute Neutrophils 10.78 H Absolute Lymphocytes 2.17 Absolute Monocytes 2.20 H Absolute Eosinophils 0.02 Absolute Basophils 0.03 RBC Morphology Normal Sodium 133 L 133 L Potassium 3.3 L 2.9 L* Chloride 91 L 87 L Carbon Dioxide 39.7 H 41.5 H Anion Gap 2.3 L 4.5 BUN 62 H 79 H Creatinine 1.8 H 2.6 H Est GFR (CKD-EPI 2020) 51.61 33.20 Glucose 126 H 138 H Calcium 8.6 8.5 Magnesium 2.9 H PFSH All Active Problems (Updated 02/24/25 @ 16:36 by Adrianna Garsia) On deep vein thrombosis (DVT) prophylaxis (Acute) Dehydration (Acute) Intractable nausea and vomiting (Acute) ALDAIR (acute kidney injury) (Acute) Hypokalemia (Acute) Discharge planning issues (Acute) Leukocytosis (Acute) Medical History Abscess of right arm Alcohol use Cannabinoid hyperemesis syndrome Marijuana dependence Surgical History No significant past surgical history Social History Smoking/Tobacco Use Status: Former Tobacco Use Smoking risk assessment performed?: Yes Alcohol Intake: current Alcohol Intake frequency: holidays/special occasions only Alcohol type: beer Drug use: Never Substance use type: does not use Details: Reports not currently using marijuana. Housing: apartment Do you feel safe at home: Yes Do you feel safe in your relationship?: Yes Time Spent with Patient Time Spent with Patient: 45-69 minutes Time was spent: preparing to see the patient(eg.review tests), obtaining and/or reviewing separately otained hiistory, ordering medications,tests, procedures, indepentently interpreting results and counseling the patient
--- NOTE | 2025-02-25 13:38 | PDOC.CMDIS ---
Date of service: 02/25/25 Time of Service: 13:38 LACE Index Scoring Tool Questions: Length of Stay (in days): 1 Was the patient admitted via the E.D.?: Yes E.D. Visits: 6 Answers: Total Score: 8 Risk of Readmission: Low Risk Care Management Discharge Plan Reason for Hospitalization: ALDAIR, Dehydration, intractable nausea/vomiting Discharge Plan: Adán will be discharged home today. He will follow up with his community providers and continue per his discharge plan of care. He will be transported by private vehicle. Patient/Family Education Needs: Review discharge instructions, activity, limitations and plan of care as directed. Discuss Ask Me Three [facility] Health Related Social Needs: No Data to Display
== END 2025-02-25 12:58 | disposition home or self-care (01) ==
LOC: ER 08:45 → MS 13:03
PROVIDERS: Nurse Practitioner Acute Care; Admitting Provider Family Medicine; Emergency Provider Nurse Practitioner Family; PCP Nurse Practitioner Family; Responsible Provider Nurse Practitioner Acute Care; Visit Provider Family Medicine
DX: N17.9 Acute kidney failure, unspecified (principal); E86.0 Dehydration; R11.2 Nausea with vomiting, unspecified; E87.6 Hypokalemia; R94.31 Abnormal electrocardiogram [ECG] [EKG]; F12.20 Cannabis dependence, uncomplicated; D72.829 Elevated white blood cell count, unspecified; Z79.899 Other long term (current) drug therapy
CPT/HCPCS: 00123; 36415; 80048; 80053; 80307; 83690; 85027; 93005; 96361; 96374; 96375; 96376; 99285; 81003; 81015; 83735; 85025; 93010; 99223; 99239; G0378; J0780; J1790; J2470; J3480

== ENCOUNTER 2025-02-28 16:23 | Outpatient (CLI) | payer BC, SELFPAY ==
[2025-02-28 18:20] LABS: Anion Gap 6.2 mmol/L (3-11); BUN 33 mg/dL (7-18); CO2 29.8 mmol/L (21.0-32.0); CREATININE 1.2 mg/dL (0.70-1.30); Calcium 8.6 mg/dL (8.5-10.1); Chloride 96 mmol/L (98-107); Estimated GFR 83.95 (mL/min/1.73m2); Glucose 107 mg/dL (74-106); Sodium 132 mmol/L (136-145)
== END 2025-02-28 16:24 | disposition home or self-care (01) ==
LOC: LBO 16:24
PROVIDERS: PCP Nurse Practitioner Family; Visit Provider Nurse Practitioner Acute Care
DX: E87.6 Hypokalemia (principal)
CPT/HCPCS: 36415; 80048

== ENCOUNTER 2025-05-14 09:23 | Emergency (ER) | payer BC, SELFPAY ==
[2025-05-14] VITALS (23 sets, daily range): BP systolic 139–185; BP diastolic 78–104; PULSE 59–106; RESP 10–18; TEMP 37.2; O2SAT 94–100
[2025-05-14 09:42] LABS: Abs Immature Grans 0.04 10^3/uL (0.0-0.06); HCT 47.9 % (40.0-50.0); HGB 17.0 g/dL (13.5-17.5); Immature Grans % 0.2 %; MCH 30.3 pg (27.0-33.0); MCHC 35.5 % (32.0-36.0); MCV 85 fL (80-95); MPV 8.7 fL (8.0-11.0); Platelet Count 413 10^3/uL (130-400); RBC 5.61 10^6/uL (4.36-5.78); RDW 12.7 % (11.8-14.1); RDW-SD 39.4 fL; WBC 17.20 10^3/uL (4.4-10.8)
[2025-05-14] MEDS: Ondansetron 4 MG/2 ML VIAL IVP ×2 (09:44→11:23)
[2025-05-14] MEDS: DEXTROSE 5%-LACTATED RINGERS 1,000 ML 150 ML IV (09:44)
[2025-05-14 10:03] LABS: ALT 23 U/L (16-63); AST 17 U/L (15-37); Albumin 4.6 g/dL (3.4-5.0); Alkaline Phosphatase 113 U/L (46-116); Anion Gap 10.0 mmol/L (3-11); BUN 30 mg/dL (7-18); Bilirubin, Total 1.2 mg/dL (0.2-1.0); CO2 32.0 mmol/L (21.0-32.0); Calcium 9.3 mg/dL (8.5-10.1); Chloride 92 mmol/L (98-107); Estimated GFR 76.26 (mL/min/1.73m2); Glucose 132 mg/dL (74-106); Lipase 111 U/L (<78); Magnesium 2.6 mg/dL (1.8-2.4); Potassium 3.0 mmol/L (3.5-5.1); Sodium 134 mmol/L (136-145); Total Protein 8.7 g/dL (6.4-8.2)
[2025-05-14 10:08] LABS: RBC Morphology Normal
[2025-05-14] MEDS: POTASSIUM CHLORIDE 10 MEQ/100 ML BAG 100 MEQ IV_INF (11:05)
[2025-05-14] MEDS: Normal Saline Flush 10 ML SYR IVP (11:16)
[2025-05-14] MEDS: Normal Saline - Diluent 50 ML VIAL IJ (11:16)
[2025-05-14] MEDS: Omnipaque 350 MG/ML 100 ML BTL IJ (11:16)
--- NOTE | 2025-05-14 11:52 | DI.CT_ITS ---
Exam(s) CT ABDOMEN PELVIS W EXAM: CT ABDOMEN PELVIS W CLINICAL HISTORY: epigastric pain, elev lipase. TECHNIQUE: Imaging Protocol: Axial computed tomography images with coronal and sagittal reformatted images were created and reviewed CONTRAST MATERIAL: Intravenous: Omnipaque 350 Contrast volume:75 ml Oral: no COMPARISON: CT CT ABDOMEN PELVIS WO from 02/26/2022 CR,XR XR CHEST 2V PA LATERAL from 02/26/[address] RENAL COLIC WO from 06/22/2022 CR,XR XR RIBS LT PA CHEST 3V from 04/11/2024 FINDINGS: ABDOMEN and PELVIS: Lung Bases: No acute findings. Increased densities in the posterior left lower lobe which appeared similar to the 2022 exam, likely indicating scarring. Liver: Normal density. No suspicious mass. Gallbladder and biliary tract: No radiodense calculus. No wall thickening or pericholecystic fluid. No biliary dilation. Pancreas: Normal density. No abnormal calcifications or inflammatory process. No evidence of mass. Spleen: Normal. Kidneys: Normal size, contour and axis. No radiodense stones. No obstructive uropathy. No suspicious masses seen. Adrenal glands: No masses seen. Vasculature: Abdominal aorta non-dilated. Soft tissues: Unremarkable. Bladder: No gross wall thickening. No calculi.No focal mass. Bowel: No obstruction. No bowel wall thickening. Appendix normal. Very little stool. Peritoneal cavity: No ascites. No focal collection. No mesenteric inflammatory response. No free air. Bones: Unremarkable for age. Reproductive organs: Unremarkable. Lymph nodes: No pathologically enlarged lymph nodes. IMPRESSION:: No acute abnormality in the abdomen or pelvis. No CT evidence of pancreatitis. Left lower lobe densities appear unchanged from 202, consistent with scarring. The preliminary [facility] report was reviewed. RADIATION DOSE DELIVERED: Total DLP DATA REPOSITORY: All CT scans at this facility are submitted to the National Radiology Data Registry (NRDR) Dose Index Registry (DIR) with the [employer] (A[employer]). RADIATION OPTIMIZATION: All CT scans at this facility use at least one of these dose optimization techniques: automated exposure control; mA and/or kV adjustment per patient size (includes targeted exams where dose is matched to clinical indication); or iterative reconstruction.
--- NOTE | 2025-05-14 12:53 | W.ED.GENAD ---
Discharge Plan Disposition Patient Disposition: Home Condition: Stable Discharge Details Clinical Impression: Pancreatitis Primary Care Provider: Meli Souza ED Provider: Aba Ren Home Meds and New Rx's Prescriptions: Continued acetaminophen 325 mg capsule 650 mg PO ONCE PRN potassium chloride 20 mEq tablet extended release 20 meq PO BID Qty: 60 0RF Rx Instructions: take with meals ondansetron 4 mg tablet,disintegrating 4 mg PO Q6H PRNQty: 20 0RF Discharge Instructions Instructions: Acute pancreatitis Additional Instructions: You were seen in the emergency department for your days of nausea and vomiting with mild abdominal pain, you had elevated lipase but not to a severe degree indicating a mild acute pancreatitis, no evidence of gallstone or obstructed biliary collecting system, no evidence of a small bowel obstruction or other emergent abdominal pathology, you did have a low potassium which you have had in the past and you have supplements at home, please take these twice a day, we did give you IV and p.o. potassium here today. Use your at home Zofran, I did state that if you could not keep down foods I would like to have you admitted but you passed an oral challenge and kept food and drink down. You need to keep a close eye on your condition as you could significantly worsen if you keep vomiting. Use a mostly clear fluid diet for pancreatitis, try to have some salt intake with broths and other liquids containing electrolytes. Introduce foods slowly, return to the emergency room at once for any continued vomiting or worsening abdominal pain. Referrals: Meli Souza [Primary Care Provider, Medicine] Discharge Data Discharge Date/Time-TO BE ENTERED AT DEPARTURE: 05/14/25 14:17 HPI General Date/Time Provider Initiated Documentation: 05/14/25 09:30. HPI Narrative: 29 year-old male presents to ED today by POV/ambulating with a chief complaint of nausea and vomiting, can't keep anything down with onset . Quality described as generalized abdominal pain, no radiation to hematemesis, chest pain, shortness of breath, cough, fever, diarrhea, constipation. Severity is described as moderate to severe. Palliating factors include nothing specific attempted. Provoking factors include nothing specific. Patient not anticoagulated. Related Data Home Medications ?Medication ?Instructions ?Recorded ?Confirmed acetaminophen 325 mg capsule 650 mg PO ONCE PRN 04/11/24 05/14/25 ondansetron 4 mg disintegrating 4 mg PO Q6H PRN #20 tabs 02/25/25 05/14/25 tablet potassium chloride 20 mEq 20 meq PO BID #60 tabs 02/25/25 05/14/25 tablet,extended release Previous Rx's ?Medication ?Instructions ?Recorded ondansetron 4 mg disintegrating 4 mg PO Q6H PRN #20 tabs 02/25/25 tablet potassium chloride 20 mEq 20 meq PO BID #60 tabs 02/25/25 tablet,extended release Allergies Allergy/AdvReac Type Severity Reaction Status Date / Time amoxicillin Allergy Skin Rash Unverified 05/14/25 09:30 Penicillins Allergy Skin Rash Unverified 05/14/25 09:30 General Stated Complaint: Nausea/Vomit/Diar RENEE: 3 Review of Systems All systems reviewed & are unremarkable except as noted in HPI and below Exam Narrative Exam Narrative: GENERAL APPEARANCE: Well-nourished, toxic, awake and alert, atraumatic, mild acute distress. SKIN: Warm, pale, dry, intact, without rashes/lesions/ulcerations. HEAD: Normocephalic, atraumatic, normal hair distribution for gender/age. EYES: Normal conjunctiva, no exudates on lids/lashes. ENT: Nares patent, no circumoral cyanosis, no facial swelling NECK: Supple, trachea midline, painless cervical ROM. LUNGS/CHEST: Lungs CTA bilaterally- no rhonchi/rales/wheezes diffusely, non-labored respirations, normal A/P diameter, symmetrical expansion, no chest wall deformity HEART (CV/PV): Regular rate and rhythm without murmur, no peripheral edema, no JVD. ABDOMEN: Soft, non-distended, no guarding, epigastric tenderness without Ward's sign, no McBurney's point tenderness. MSK: Normal ROM, no swelling/deformity to bilateral UEs or LEs, moving all extremities without weakness, no cyanosis, spine midline without tenderness, normal curvature. NEURO: Mental Status AAOx4 - alert to person, place, time, events No facial droop, no forehead involvement. Motor: No focal weakness - strength 5/5 in bilateral UEs and LEs, proximal and distal, symmetric. Sensory: sensation intact to light touch globally. Gait normal: patient ambulated without ataxia into ED room. PSYCH: euthymic, cooperative, pleasant, appropriate speech Course Vital Signs Vital signs: Vital Signs Temperature 37.2 C 05/14/25 09:28 Pulse 106 H 05/14/25 09:28 Respiratory Rate 18 05/14/25 09:28 Blood Pressure 157/104 H 05/14/25 09:28 Pulse Oximetry 97 05/14/25 09:28 Temperature 37.2 C 05/14/25 09:28 Temperature Source Tympanic 05/14/25 09:28 Pulse 59 L 05/14/25 12:40 Pulse 60 05/14/25 12:40 Respiratory Rate 13 05/14/25 12:40 Respiratory Depth Normal 05/14/25 10:20 Blood Pressure 164/94 H 05/14/25 12:30 Blood Pressure Mean 117 05/14/25 12:30 Blood Pressure Position Supine 05/14/25 10:20 Pulse Oximetry 98 05/14/25 12:40 Oxygen Delivery Method Room Air 05/14/25 12:00 Oxygen Flow Rate 0 05/14/25 12:00 Lab/Test Results Lab/Test Results: Laboratory Tests Range/Units 05/14/25 09:37 WBC (4.4-10.8) 10^3/uL 17.20 H RBC (4.36-5.78) 10^6/uL 5.61 Hgb (13.5-17.5) g/dL 17.0 Hct (40.0-50.0) % 47.9 MCV (80-95) fL 85 MCH (27.0-33.0) pg 30.3 MCHC (32.0-36.0) % 35.5 RDW (11.8-14.1) % 12.7 Plt Count (130-400) 10^3/uL 413 H MPV (8.0-11.0) fL 8.7 Immature Gran % % 0.2 Neutrophils % % 72.9 Lymphocytes % % 16.9 Monocytes % % 9.8 Eosinophils % % 0.0 Basophils % % 0.2 Nucleated RBC % (0.0-0.3) % 0.0 Absolute Neutrophils (1.2-6.7) 10^3/uL 12.54 H Absolute Lymphocytes (1.2-3.4) 10^3/uL 2.91 Absolute Monocytes (0.1-0.8) 10^3/uL 1.69 H Absolute Eosinophils (0.0-0.7) 10^3/uL 0.00 Absolute Basophils (0.0-0.2) 10^3/uL 0.03 RBC Morphology Normal VBG Lactate (<or=2.0) mmol/L 0.9 Sodium (136-145) mmol/L 134 L Potassium (3.5-5.1) mmol/L 3.0 L Chloride (98-107) mmol/L 92 L Carbon Dioxide (21.0-32.0) mmol/L 32.0 Anion Gap (3-11) mmol/L 10.0 BUN (7-18) mg/dL 30 H Creatinine (0.70-1.30) mg/dL 1.3 Est GFR (CKD-EPI 2020) (mL/min/1.73m2) 76.26 Glucose (74-106) mg/dL 132 H Calcium (8.5-10.1) mg/dL 9.3 Magnesium (1.8-2.4) mg/dL 2.6 H Total Bilirubin (0.2-1.0) mg/dL 1.2 H AST (15-37) U/L 17 ALT (16-63) U/L 23 Alkaline Phosphatase (46-116) U/L 113 Total Protein (6.4-8.2) g/dL 8.7 H Albumin (3.4-5.0) g/dL 4.6 Lipase (<78) U/L 111 H Medical Decision Making This dictation utilizes [id number] dictation software and may contain unedited grammatical errors. 29 year-old male presents to ED today by POV/ambulating with a chief complaint of nausea and vomiting, can't keep anything down with onset . Quality described as generalized abdominal pain, no radiation to hematemesis, chest pain, shortness of breath, cough, fever, diarrhea, constipation. Severity is described as moderate to severe. Palliating factors include nothing specific attempted. Provoking factors include nothing specific. Patients' medical history: Cannabis hyperemesis, alcohol use, history of DVT prophylaxis not currently anticoagulated. Family and social history: Denies significant recent alcohol use. Pertinent exam findings / vital signs include epigastric tenderness, no peritoneal signs, negative Ward sign, benign cardiopulmonary exam, nontoxic and afebrile. Differential / pathologies of concern include gastritis, cannabis hyperemesis, pancreatitis, biliary colic, renal colic less likely, gastroenteritis. Diagnostic studies of: - CBC, CMP, lactate, magnesium, lipase, CT ABD/pelvis with contrast. - CBC shows elevated white blood cells at 17.2 likely in the setting of acute vomiting - Lactate negative, no left shift on CBC - CMP shows low potassium, patient states he has potassium supplements at home - Magnesium 2.6 likely in the setting of hemoconcentration - Lipase 111 with an acute mild pancreatitis - CT ABD/pelvis shows no definitive pathology, does identify mild infiltrate but he has no respiratory symptoms Interventions of: - 1 L D5LR at 150 mL an hour, 4 mg IVP Zofran X2 doses, 1 L saline, 10 mEq IV potassium and 40 mEq oral, 1 subsequent dose of 5 mg IVP Compazine- passed PO challenge. ED Course/Assessment/Plan: 29-year-old male presents with acute nausea and vomiting for the past few days he cannot keep anything down, found to have mild acute pancreatitis with mild elevation of lipase, do not suspect sepsis or other acute emergent abdominal pathology, he has no peritoneal signs on abdominal exam. Passed p.o. challenge after multiple antiemetics and has a history of cannabinoid hyperemesis syndrome which is a possibility of contributing to this. I counseled on the possibility for admission if he did not pass p.o. challenge but he can may return at anytime for nausea and vomiting, expressed a clear fluid diet and simple pain medicines with slow introduction of foods, strict return criteria for any acute worsening. Findings not consistent with biliary colic, acute cholecystitis, gallstone pancreatitis, sepsis, perforated viscus, intractable vomiting. Disposition of Pancreatitis. Patient verbalized understanding of the plan and return to ED criteria and engaged in shared decision making. Medical Records Medical records reviewed: Yes I reviewed the patient's medical records. Imaging Data Radiologic Study: Attestation: I personally reviewed and interpreted this imaging study as follows: Imaging: CT Scan Radiologist's impression: Exam: CT Abdomen And Pelvis With Contrast Exam date and time: 05/14/2025 11:39 AM Age: 29 years old Clinical indication: Abdominal pain; Epigastric; Elevated lipase. TECHNIQUE: Imaging protocol: Computed tomography of the abdomen and pelvis with contrast. Radiation optimization: All CT scans at this facility use at least one of these dose optimization techniques: automated exposure control; mA and/or kV adjustment per patient size (includes targeted exams where dose is matched to clinical indication); or iterative reconstruction. Contrast material: OMNIPAQUE 350; Contrast volume: 75 ml; Contrast route: INTRAVENOUS (IV); COMPARISON: CT RENAL COLIC WO 06/22/2022 12:04 AM FINDINGS: Lungs: There is mild airspace opacity in the left lower lobe. Liver: There is diffuse hepatic steatosis. There is a 1.5 cm cyst in the lateral left upper pole kidney. Gallbladder and biliary ducts: Normal. No calcified stones. No ductal dilation. Pancreas: Normal. No ductal dilation. Spleen: Normal. No splenomegaly. Adrenal glands: Normal. No mass. Kidneys and ureters: See Liver finding. Stomach and bowel: There is under distension with diffuse mild mucosal thickening the small and the large bowel . Appendix: No evidence of appendicitis. Intraperitoneal space: Unremarkable. No free air. No significant fluid collection. Vasculature: Unremarkable. No abdominal aortic aneurysm. Lymph nodes: Unremarkable. No enlarged lymph nodes. Urinary bladder: Unremarkable as visualized. Reproductive: Unremarkable as visualized. Bones/joints: Unremarkable. No acute fracture. Soft tissues: Unremarkable. IMPRESSION: 1. No definite acute abdominal or pelvic abnormalities. No abscess or free air. 2. No significant peripancreatic edema or peripancreatic fluid seen to suggest pancreatitis on CT. Might consider clinical correlation. 3. Mild airspace opacity in the left lower lobe may represent mild infiltrate. 4. Under distended small and large bowel loops with mild mucosal thickening, under distension versus mild nonspecific enterocolitis or gastroenteritis. Dictated and Authenticated by: Amor Cohen MD. Lab Data Lab results reviewed: Yes I reviewed the patient's lab results. Labs: Laboratory Tests Range/Units 05/14/25 09:37 WBC (4.4-10.8) 10^3/uL 17.20 H RBC (4.36-5.78) 10^6/uL 5.61 Hgb (13.5-17.5) g/dL 17.0 Hct (40.0-50.0) % 47.9 MCV (80-95) fL 85 MCH (27.0-33.0) pg 30.3 MCHC (32.0-36.0) % 35.5 RDW (11.8-14.1) % 12.7 Plt Count (130-400) 10^3/uL 413 H MPV (8.0-11.0) fL 8.7 Immature Gran % % 0.2 Neutrophils % % 72.9 Lymphocytes % % 16.9 Monocytes % % 9.8 Eosinophils % % 0.0 Basophils % % 0.2 Nucleated RBC % (0.0-0.3) % 0.0 Absolute Neutrophils (1.2-6.7) 10^3/uL 12.54 H Absolute Lymphocytes (1.2-3.4) 10^3/uL 2.91 Absolute Monocytes (0.1-0.8) 10^3/uL 1.69 H Absolute Eosinophils (0.0-0.7) 10^3/uL 0.00 Absolute Basophils (0.0-0.2) 10^3/uL 0.03 RBC Morphology Normal VBG Lactate (<or=2.0) mmol/L 0.9 Sodium (136-145) mmol/L 134 L Potassium (3.5-5.1) mmol/L 3.0 L Chloride (98-107) mmol/L 92 L Carbon Dioxide (21.0-32.0) mmol/L 32.0 Anion Gap (3-11) mmol/L 10.0 BUN (7-18) mg/dL 30 H Creatinine (0.70-1.30) mg/dL 1.3 Est GFR (CKD-EPI 2020) (mL/min/1.73m2) 76.26 Glucose (74-106) mg/dL 132 H Calcium (8.5-10.1) mg/dL 9.3 Magnesium (1.8-2.4) mg/dL 2.6 H Total Bilirubin (0.2-1.0) mg/dL 1.2 H AST (15-37) U/L 17 ALT (16-63) U/L 23 Alkaline Phosphatase (46-116) U/L 113 Total Protein (6.4-8.2) g/dL 8.7 H Albumin (3.4-5.0) g/dL 4.6 Lipase (<78) U/L 111 H PFSH All Active Problems (Updated 05/14/25 @ 14:04 by SHAHRZAD Toussaint) Pancreatitis (Chronic) On deep vein thrombosis (DVT) prophylaxis (Acute) Intractable nausea and vomiting (Acute) ALDAIR (acute kidney injury) (Acute) Hypokalemia (Acute) Discharge planning issues (Acute) Leukocytosis (Acute) Medical History Abscess of right arm Alcohol use Cannabinoid hyperemesis syndrome Marijuana dependence Surgical History No significant past surgical history Social History Smoking/Tobacco Use Status: Former Tobacco Use Smoking risk assessment performed?: Yes Alcohol Intake: current Alcohol Intake frequency: holidays/special occasions only Alcohol type: beer Drug use: Never Substance use type: does not use Details: Reports not currently using marijuana. Housing: apartment Do you feel safe at home: Yes Do you feel safe in your relationship?: Yes
[2025-05-14] MEDS: Normal Saline 1,000 ML 1000 ML IV (13:03)
[2025-05-14] MEDS: Potassium Chloride 20 MEQ TABCR 40 MEQ PO (13:40)
[2025-05-14] MEDS: Prochlorperazine 10 MG/2 ML VIAL 5 MG IVP (13:43)
[2025-05-14 13:56] LABS: Glucose Negative (Negative)
[2025-05-14 14:09] LABS: C & S Indicated? No; RBC 0-2 HPF (0-2); WBC 0-2 HPF (0-5)
== END 2025-05-14 14:17 | disposition home or self-care (01) ==
PROVIDERS: Emergency Provider Physician Assistant; PCP Nurse Practitioner Family
DX: K85.90 Acute pancreatitis without necrosis or infection, unspecified (principal); R11.2 Nausea with vomiting, unspecified
CPT/HCPCS: 80053; 83690; 96361; 96374; 96375; 96376; 99285; 74177; 81003; 81015; 83605; 83735; 85025; 99284; J0780; J2405; J3480; J3490

== ENCOUNTER 2025-06-01 15:01 | Outpatient (CLI) | payer BC, SELFPAY ==
--- NOTE | 2025-06-01 | DI.RAD_ITS ---
Exam(s) XR NASAL BONES EXAM: XR NASAL BONES CLINICAL HISTORY: CONTUSION OF NOSE, INITIAL ENCOUNTER S00.33XA. TECHNIQUE: 2D digital imaging was performed. COMPARISON: CT CT HEAD WO from 12/04/2020 FINDINGS: BONES: There are nondisplaced fractures at the nasal bones at the level of the nasal bridge. There no additional fractures. The nasal septum is midline. There is a mucous retention cyst in the left maxillary sinus. SOFT TISSUES: Unremarkable. IMPRESSION: Nondisplaced nasal bone fracture DATA REPOSITORY: RADIATION DOSE DELIVERED:
== END 2025-06-01 15:21 ==
PROVIDERS: PCP Nurse Practitioner Family; Visit Provider Physician Assistant Medical
DX: S00.33XA Contusion of nose, initial encounter (principal); X58.XXXA Exposure to other specified factors, initial encounter
CPT/HCPCS: 70160

== ENCOUNTER 2025-07-06 09:45 | Emergency (ER) | payer BC, SELFPAY ==
[2025-07-06] VITALS (23 sets, daily range): BP systolic 119–163; BP diastolic 71–99; PULSE 74–130; RESP 11–24; TEMP 36.6; O2SAT 94–98
[2025-07-06 10:37] LABS: Abs Immature Grans 0.06 10^3/uL (0.0-0.06); HCT 53.2 % (40.0-50.0); HGB 18.8 g/dL (13.5-17.5); Immature Grans % 0.4 %; MCH 30.0 pg (27.0-33.0); MCHC 35.3 % (32.0-36.0); MCV 85 fL (80-95); MPV 8.9 fL (8.0-11.0); Platelet Count 359 10^3/uL (130-400); RBC 6.27 10^6/uL (4.36-5.78); RDW 12.2 % (11.8-14.1); RDW-SD 37.7 fL; WBC 14.81 10^3/uL (4.4-10.8)
[2025-07-06 10:51] LABS: ALT 26 U/L (16-63); AST 23 U/L (15-37); Albumin 5.0 g/dL (3.4-5.0); Alkaline Phosphatase 110 U/L (46-116); Anion Gap 14.9 mmol/L (3-11); BUN 75 mg/dL (7-18); Bilirubin, Total 0.9 mg/dL (0.2-1.0); CO2 38.1 mmol/L (21.0-32.0); Calcium 9.3 mg/dL (8.5-10.1); Chloride 80 mmol/L (98-107); Estimated GFR 32.99 (mL/min/1.73m2); Glucose 156 mg/dL (74-106); Magnesium 3.0 mg/dL (1.8-2.4); Potassium 3.0 mmol/L (3.5-5.1); Sodium 133 mmol/L (136-145); Total Protein 9.5 g/dL (6.4-8.2)
[2025-07-06] MEDS: Prochlorperazine 10 MG/2 ML VIAL IVP (10:53)
[2025-07-06] MEDS: Dexamethasone 4 MG/ML VIAL IVP (10:54)
[2025-07-06] MEDS: diphenhydrAMINE 50 MG/ML VIAL 25 MG IVP (10:54)
[2025-07-06 11:01] LABS: Anisocytosis 1+; Microcytosis 1+
[2025-07-06 11:06] LABS: Lab Add On Test DONE
[2025-07-06 11:12] LABS: Lipase 25 U/L (<78)
[2025-07-06] MEDS: Normal Saline 1,000 ML 1000 ML IV ×3 (11:41→13:48)
[2025-07-06 12:56] LABS: Glucose Negative (Negative)
[2025-07-06 13:06] LABS: ALT 23 U/L (16-63); AST 25 U/L (15-37); Albumin 4.1 g/dL (3.4-5.0); Alkaline Phosphatase 91 U/L (46-116); Anion Gap 12.0 mmol/L (3-11); BUN 69 mg/dL (7-18); Bilirubin, Total 0.8 mg/dL (0.2-1.0); CO2 35.0 mmol/L (21.0-32.0); Calcium 8.0 mg/dL (8.5-10.1); Chloride 86 mmol/L (98-107); Estimated GFR 42.63 (mL/min/1.73m2); Glucose 133 mg/dL (74-106); Potassium 3.0 mmol/L (3.5-5.1); Sodium 133 mmol/L (136-145); Total Protein 7.7 g/dL (6.4-8.2)
[2025-07-06 13:16] LABS: C & S Indicated? No; WBC 0-2 HPF (0-5)
[2025-07-06] MEDS: Potassium Chloride 20 MEQ TABCR 40 MEQ PO (14:13)
--- NOTE | 2025-07-06 15:45 | W.ED.GENAD ---
Discharge Plan Disposition Patient Disposition: Against Medical Advice Condition: Stable Discharge Details Clinical Impression: ALDAIR (acute kidney injury), Hypokalemia, Nausea & vomiting Primary Care Provider: Meli Souza ED Provider: Eugenia Christina Home Meds and New Rx's Prescriptions: New prochlorperazine maleate [Compazine] 10 mg tablet 10 mg PO Q8H PRNQty: 14 0RF potassium chloride [Klor-Con M20] 20 mEq tablet,ER particles/crystals 20 meq PO DAILY Qty: 10 0RF Continued acetaminophen 325 mg capsule 650 mg PO ONCE PRN Discharge Instructions Instructions: Hypokalemia, Acute Kidney Injury (DC) Additional Instructions: You are leaving against our medical recommendation, you are in acute kidney injury from your vomiting, it is really important that you have at least eight 8 ounce glasses of water daily Take the Compazine every 8 hours for nausea and vomiting take the potassium, popsicles, juice You may incorporate bland diet as tolerated when you are regularly able to hold down fluids Please have kidney function rechecked by your doctor within the next 1 to 2 days Referrals: Meli Souza [Primary Care Provider, Medicine] HPI General Date/Time Provider Initiated Documentation: 07/06/25 09:55. HPI Narrative: This 30-year-old male with history of cannabinoid hyperemesis syndrome presents with nausea and vomiting that started on Thursday. Denies any blood in bottles. Denies any diarrhea. Denies any alcohol consumption. States has had similar symptoms in the past. Describes pain in his abdomen which he attributes to vomiting. Related Data Home Medications ?Medication ?Instructions ?Recorded ?Confirmed acetaminophen 325 mg capsule 650 mg PO ONCE PRN 04/11/24 07/06/25 potassium chloride 20 mEq 20 meq PO DAILY #10 tabs 07/06/25 tablet,extended release(part/cryst) (Klor-Con M) prochlorperazine maleate 10 mg 10 mg PO Q8H PRN #14 tabs 07/06/25 tablet (Compazine) Previous Rx's ?Medication ?Instructions ?Recorded potassium chloride 20 mEq 20 meq PO DAILY #10 tabs 07/06/25 tablet,extended release(part/cryst) (Klor-Con M) prochlorperazine maleate 10 mg 10 mg PO Q8H PRN #14 tabs 07/06/25 tablet (Compazine) Allergies Allergy/AdvReac Type Severity Reaction Status Date / Time amoxicillin Allergy Skin Rash Unverified 07/06/25 09:53 Penicillins Allergy Skin Rash Unverified 07/06/25 09:53 General Stated Complaint: Nausea/Vomit/Diar RENEE: 3 Exam Narrative Exam Narrative: Alert and oriented 30-year-old male with acute distress, mild diffuse abdominal tenderness without rebound or guarding no respiratory distress sinus tachycardia alert and oriented x 4 Course Vital Signs Vital signs: Vital Signs Temperature 36.6 C 07/06/25 09:51 Pulse 115 H 07/06/25 09:51 Respiratory Rate 16 07/06/25 09:51 Blood Pressure 119/71 07/06/25 09:51 Pulse Oximetry 98 07/06/25 09:51 Temperature 36.6 C 07/06/25 09:53 Pulse 84 07/06/25 14:50 Pulse 82 07/06/25 14:50 Respiratory Rate 15 07/06/25 14:50 Blood Pressure 157/90 H 07/06/25 14:46 Blood Pressure Mean 112 07/06/25 14:46 Pulse Oximetry 98 07/06/25 14:50 Pain Level 5 07/06/25 09:53 Lab/Test Results Lab/Test Results: Laboratory Tests Range/Units 07/06/25 07/06/25 07/06/25 10:30 10:38 12:45 WBC (4.4-10.8) 10^3/uL 14.81 H RBC (4.36-5.78) 10^6/uL 6.27 H Hgb (13.5-17.5) g/dL 18.8 H Hct (40.0-50.0) % 53.2 H MCV (80-95) fL 85 MCH (27.0-33.0) pg 30.0 MCHC (32.0-36.0) % 35.3 RDW (11.8-14.1) % 12.2 Plt Count (130-400) 10^3/uL 359 MPV (8.0-11.0) fL 8.9 Immature Gran % % 0.4 Neutrophils % % 80.3 Lymphocytes % % 9.6 Monocytes % % 9.5 Eosinophils % % 0.0 Basophils % % 0.2 Nucleated RBC % (0.0-0.3) % 0.0 Absolute Neutrophils (1.2-6.7) 10^3/uL 11.89 H Absolute Lymphocytes (1.2-3.4) 10^3/uL 1.42 Absolute Monocytes (0.1-0.8) 10^3/uL 1.41 H Absolute Eosinophils (0.0-0.7) 10^3/uL 0.00 Absolute Basophils (0.0-0.2) 10^3/uL 0.03 RBC Morphology See Below Anisocytosis 1+ Microcytosis 1+ Sodium (136-145) mmol/L 133 L 133 L Potassium (3.5-5.1) mmol/L 3.0 L 3.0 L Chloride (98-107) mmol/L 80 L 86 L Carbon Dioxide (21.0-32.0) mmol/L 38.1 H 35.0 H Anion Gap (3-11) mmol/L 14.9 H 12.0 H BUN (7-18) mg/dL 75 H 69 H Creatinine (0.70-1.30) mg/dL 2.6 H 2.1 H Est GFR (CKD-EPI 2020) (mL/min/1.73m2) 32.99 42.63 Glucose (74-106) mg/dL 156 H 133 H Calcium (8.5-10.1) mg/dL 9.3 8.0 L Magnesium (1.8-2.4) mg/dL 3.0 H Total Bilirubin (0.2-1.0) mg/dL 0.9 0.8 AST (15-37) U/L 23 25 ALT (16-63) U/L 26 23 Alkaline Phosphatase (46-116) U/L 110 91 Total Protein (6.4-8.2) g/dL 9.5 H 7.7 Albumin (3.4-5.0) g/dL 5.0 4.1 Lipase (<78) U/L 25 Urine Color (Yellow) Urine Clarity (Clear) Urine pH (5-8) Ur Specific [place] (1.005-1.025) Urine Protein (Neg-Trace) mg/dL Urine Ketones (Negative) mg/dL Urine Blood (Negative) Urine Nitrite (Negative) Urine Bilirubin (Negative) Urine Urobilinogen (Up to 0.2) mg/dL Ur Leukocyte Esterase (Negative) Urine RBC (0-2) HPF Urine WBC (0-5) HPF Ur Epithelial Cells (Negative) HPF Urine Crystals (Negative) HPF Urine Bacteria (Negative) HPF Urine Casts (Negative) LPF Urine Mucus (Negative) Ur Culture Indicated? Urine Glucose (Negative) mg/dL Add-On Test Request DONE Range/Units 07/06/25 12:50 WBC (4.4-10.8) 10^3/uL RBC (4.36-5.78) 10^6/uL Hgb (13.5-17.5) g/dL Hct (40.0-50.0) % MCV (80-95) fL MCH (27.0-33.0) pg MCHC (32.0-36.0) % RDW (11.8-14.1) % Plt Count (130-400) 10^3/uL MPV (8.0-11.0) fL Immature Gran % % Neutrophils % % Lymphocytes % % Monocytes % % Eosinophils % % Basophils % % Nucleated RBC % (0.0-0.3) % Absolute Neutrophils (1.2-6.7) 10^3/uL Absolute Lymphocytes (1.2-3.4) 10^3/uL Absolute Monocytes (0.1-0.8) 10^3/uL Absolute Eosinophils (0.0-0.7) 10^3/uL Absolute Basophils (0.0-0.2) 10^3/uL RBC Morphology Anisocytosis Microcytosis Sodium (136-145) mmol/L Potassium (3.5-5.1) mmol/L Chloride (98-107) mmol/L Carbon Dioxide (21.0-32.0) mmol/L Anion Gap (3-11) mmol/L BUN (7-18) mg/dL Creatinine (0.70-1.30) mg/dL Est GFR (CKD-EPI 2020) (mL/min/1.73m2) Glucose (74-106) mg/dL Calcium (8.5-10.1) mg/dL Magnesium (1.8-2.4) mg/dL Total Bilirubin (0.2-1.0) mg/dL AST (15-37) U/L ALT (16-63) U/L Alkaline Phosphatase (46-116) U/L Total Protein (6.4-8.2) g/dL Albumin (3.4-5.0) g/dL Lipase (<78) U/L Urine Color (Yellow) Yellow Urine Clarity (Clear) Clear Urine pH (5-8) 6.0 Ur Specific [place] (1.005-1.025) 1.025 Urine Protein (Neg-Trace) mg/dL >=300 H Urine Ketones (Negative) mg/dL Negative Urine Blood (Negative) Small H Urine Nitrite (Negative) Negative Urine Bilirubin (Negative) Negative Urine Urobilinogen (Up to 0.2) mg/dL 0.2 Ur Leukocyte Esterase (Negative) Negative Urine RBC (0-2) HPF 5-10 H Urine WBC (0-5) HPF 0-2 Ur Epithelial Cells (Negative) HPF Few Urine Crystals (Negative) HPF Rare Amorphous Urine Bacteria (Negative) HPF Few Urine Casts (Negative) LPF 0-2 Hyaline Urine Mucus (Negative) Trace Ur Culture Indicated? No Urine Glucose (Negative) mg/dL Negative Add-On Test Request Medical Decision Making Results: Leukocytosis consistent with vomiting, hemoglobin 18.8 and hematocrit 53 likely consistent with acute dehydration ALDAIR with hyponatremia at 133 potassium of 3 given 40 mEq of potassium able to tolerate, hypochloremia at 86, this is improved from 80 patient will continue to hydrate able to tolerate p.o. BUN is 69 and creatinine was 2.1 Assessment and plan: Patient with likely cannabinoid hyperemesis syndrome, recommendation for admission to the hospital for ALDAIR and hypokalemia. Potassium was replenished with 3.8 with 40 mill equivalents of potassium. Patient received 3 L of NS and was able to consume 2 glasses of juice and popsicles. He is unwilling to stay in the hospital for ALDAIR. He is fully alert, oriented, decisional capacity. I did review a CT scan of his abdomen and pelvis during his last encounter in April I see no clear indication to repeat this at this time lipase within normal limits. Patient reports symptomatic improvement he is able to tolerate p.o., he will be given antiemetics for home and potassium supplementation for home. Return precautions reviewed in detail and patient expressed understanding aware he is leaving against medical recommendation secondary ALDAIR in the presence of nausea and vomiting. He is encouraged to see his doctor tomorrow in follow-up. PFSH All Active Problems (Updated 07/06/25 @ 14:34 by SHAHRZAD Hess) Nausea & vomiting (Acute) On deep vein thrombosis (DVT) prophylaxis (Acute) Intractable nausea and vomiting (Acute) ALDAIR (acute kidney injury) (Acute) Hypokalemia (Acute) Discharge planning issues (Acute) Leukocytosis (Acute) Medical History Abscess of right arm Alcohol use Cannabinoid hyperemesis syndrome Marijuana dependence Surgical History No significant past surgical history Social History Smoking/Tobacco Use Status: Former Tobacco Use Smoking risk assessment performed?: Yes Alcohol Intake: current Alcohol Intake frequency: holidays/special occasions only Alcohol type: beer Drug use: Never Substance use type: does not use Details: Reports not currently using marijuana. Housing: apartment Do you feel safe at home: Yes Do you feel safe in your relationship?: Yes
== END 2025-07-06 15:16 | disposition left against medical advice (07) ==
PROVIDERS: Emergency Provider Physician Assistant; PCP Nurse Practitioner Family
DX: N17.9 Acute kidney failure, unspecified (principal); E87.6 Hypokalemia; R11.2 Nausea with vomiting, unspecified
CPT/HCPCS: 99284 ×2; 36415; 96374; 96375; 80053; 83690; 96361; 81003; 81015; 83735; 85025; J0780; J1100; J1200